=== PATIENT | male | born 1945 | race Caucasian/White ===

== ENCOUNTER 2018-07-24 02:26 | Outpatient (CLI) | payer MEDICARE, BC, SELFPAY ==
[2018-07-24 11:33] LABS: Anion Gap 9.4 mmol/L (3-11); BUN 21 mg/dL (7-18); CO2 28.6 mmol/L (21.0-32.0); CREATININE 1.06 mg/dL (0.70-1.30); Calcium 8.7 mg/dL (8.5-10.1); Chloride 105 mmol/L (98-107); Cholesterol 153 mg/dL (50-200); Glucose 128 mg/dL (70-100); HDL Cholesterol 38 mg/dL (40-60); LDL CHOLESTEROL 80 mg/dL (<100); Potassium 4.1 mmol/L (3.5-5.1); Sodium 143 mmol/L (136-145); Triglyceride 164 mg/dL (30-150)
== END 2018-07-24 02:46 ==
PROVIDERS: PCP Emergency Medicine; Visit Provider Emergency Medicine
DX: I10 Essential (primary) hypertension (principal); E78.5 Hyperlipidemia, unspecified
CPT/HCPCS: 36415; 80048; 80061; 83721

== ENCOUNTER 2019-07-27 07:00 | Outpatient (CLI) | payer MEDICARE, BC, SELFPAY ==
[2019-07-27 10:44] LABS: Anion Gap 9.5 mmol/L (3-11); BUN 22 mg/dL (7-18); CO2 28.5 mmol/L (21.0-32.0); CREATININE 1.02 mg/dL (0.70-1.30); Calcium 8.7 mg/dL (8.5-10.1); Calculated LDL 93 mg/dL; Chloride 110 mmol/L (98-107); Cholesterol 158 mg/dL (<200); Glucose 109 mg/dL (74-106); HDL Cholesterol 42 mg/dL (40-60); Potassium 4.4 mmol/L (3.5-5.1); Sodium 148 mmol/L (136-145); Triglyceride 119 mg/dL (<150)
== END 2019-07-27 07:20 ==
PROVIDERS: PCP Emergency Medicine; Visit Provider Emergency Medicine
DX: I10 Essential (primary) hypertension (principal); I21.9 Acute myocardial infarction, unspecified
CPT/HCPCS: 36415; 80048; 80061

== ENCOUNTER → 2020-02-02 09:17 | Outpatient (BNVA) | payer MEDICARE, BC, SELFPAY | PROVIDERS: PCP Emergency Medicine; Referring Provider Emergency Medicine; Visit Provider Surgery | DX: K64.4 Residual hemorrhoidal skin tags (principal); K57.90 Diverticulosis of intestine, part unspecified, without perforation or abscess without bleeding; Z80.0 Family history of malignant neoplasm of digestive organs | CPT/HCPCS: 99202 ==

== ENCOUNTER 2020-02-10 10:14 | Day surgery (SDC) | payer MEDICARE, BC, SELFPAY ==
--- NOTE | 2020-02-10 08:48 | PDOC.DSDIS_ITS ---
Discharge Plan Disposition Patient Disposition: HOME Condition: Good Discharge Details Reason For Visit: colon scope Attending Provider: Felicia Enciso Primary Care Provider: Rasheed Chand Home Meds and New Rx's Prescriptions: Continued lorazepam 1 mg tablet 2 mg PO BID PRN (Reason: anxiety) Qty: 20 RF: 0 magnesium oxide 400 mg (241.3 mg magnesium) tablet 400 mg PO DAILY RF: 0 aspirin [Aspir-81] 81 MG tablet,delayed release (DR/EC) 81 mg PO DAILY RF: 0 scopolamine base 1 mg over 3 days patch 3 day 1 patch TD Q3D PRN (Reason: nausea and vomiting) Qty: 4 RF: 0 metoprolol succinate 25 mg tablet extended release 24 hr 25 mg PO DAILY Qty: 90 RF: 3 atorvastatin 40 mg tablet 40 mg PO DAILY Qty: 90 RF: 4 potassium citrate 10 mEq (1,080 mg) tablet extended release 10 meq PO DAILY Qty: 90 RF: 3 sotalol [Betapace] 160 mg tablet 160 mg PO BID Qty: 180 RF: 3 Discontinued bisacodyl [Dulcolax (bisacodyl)] 5 mg tablet,delayed release (DR/EC) 5 mg PO ONCE Qty: 4 RF: 0 polyethylene glycol 3350 17 gram/dose powder 17 g PO ONCE Qty: 238 RF: 0 Discharge Instructions Additional Instructions: Findings:small polyp divertiuclar Dx DIVERTICULAR DISEASE OVERVIEW ? A diverticulum is a pouch-like structure that ca n form through points of weakness in the muscular wall of the colon (ie, at points where blood vessels pass through the wall). Diverticulosis affects men and women equally. The risk of diverticular disease increases with age. It occurs throughout the world but is seen more commonly in developed countries. WHAT IS DIVERTICULAR DISEASE? Diverticulosis ? Diverticulosis merely describes the presence of diverticula. Diverticulosis is often found during a test done for other reasons, such as flexible sigmoidoscopy, colonoscopy, or barium enema. Most people with diverticulosis have no symptoms and will remain symptom free for the rest of their lives. A person with diverticulosis may have diverticulitis, or diverticular bleeding. Diverticulitis ? Inflammation of a diverticulum (diverticulitis) occurs when there is thinning and breakdown of the diverticular wall. This may be caused by increased pressure within the colon or by hardened particles of stool, which can become lodged within the diverticulum. The symptoms of diverticulitis depend upon the degree of inflammation present. The most common symptom is pain in the left lower abdomen. Other symptoms can include nausea and vomiting, constipation, diarrhea, and urinary symptoms such as pain or burning when urinating or the frequent need to urinate. Diverticulitis is divided into simple and complicated forms. ?Simple diverticulitis, which accounts for 75 percent of cases, is not associated with complications and typically responds to medical treatment without surgery. ?Complicated diverticulitis occurs in 25 percent of cases and usually requires surgery. Complications associated with diverticulitis can include the following: ?Abscess ? a localized collection of pus ?Fistula ? an abnormal tract between two areas that are not normally connected (eg, bowel and bladder) ?Obstruction ? a blockage of the colon ?Peritonitis ? infection involving the space around the abdominal organ ?Sepsis ? overwhelming body-wide infection that can lead to failure of multiple organs Diverticular bleeding ? Diverticular bleeding occurs when a small artery located within a diverticulum is eroded and bleeds into the colon. Diverticular bleeding usually causes painless bleeding from the rectum. In approximately 50 percent of cases, the person will see maroon or bright red blood with bowel movements. Is bleeding with a bowel movement normal? ? It is not normal to see blood in a bowel movement; this can be a sign of several conditions, most of which are not serious (eg, hemorrhoids) but some of which are serious and require immediate treatment. Anyone who sees blood after a bowel movement should consult with their healthcare provider to determine if further testing or evaluation is needed. DIVERTICULOSIS AND DIVERTICULITIS DIAGNOSIS ? Diverticulosis is often found during tests performed for other reasons. ?Barium enema ? This is an x-ray study that uses barium in an enema to view the outline of the lower intestinal tract. This is an older test and has been largely replaced by computed tomography (CT) scan. ?Flexible sigmoidoscopy ? This is an examination of the inside of the sigmoid colon with a thin, flexible tube that contains a camera. ?Colonoscopy ? This is an examination of the inside of the entire colon. ?CT scan ? A CT scan is often used to diagnose diverticulitis and its complications. If diverticulitis (not just diverticulosis) is suspected, the above three tests should not be used because of the risk of perforation. TREATMENT Diverticulosis ? People with diverticulosis who do not have symptoms do not require treatment. However, most clinicians recommend increasing fiber in the diet, which can help to bulk the stools and possibly prevent the development of new diverticula, diverticulitis, or diverticular bleeding. Fiber is not proven to prevent these conditions in all patients but may help to control recurrent episodes in some. Increase fiber ? Fruits and vegetables are a good source of fiber. Fiber content of packaged foods can be calculated by reading the nutrition label. Seeds and nuts ? Patients with diverticular disease have historically been advised to avoid whole pieces of fiber (such as seeds, corn, and nuts) because of concern that these foods could cause an episode of diverticulitis. However, this belief is completely unproven. We do not suggest that patients with diverticulosis avoid seeds, corn, or nuts. Diverticulitis ? Treatment of diverticulitis depends upon how severe your symptoms are. Home treatment ? If you have mild symptoms of diverticulitis (mild abdominal pain, usually left lower abdomen), you can be treated at home with a clear liquid diet and oral antibiotics. However, if you develop one or more of the following signs or symptoms, you should seek immediate medical attention: ?Temperature >100.1?F (38?C) ?Worsening or severe abdominal pain ?An inability to tolerate fluids Hospital treatment ? If you have moderate to severe symptoms, you may be hospitalized for treatment. During this time, you are not allowed to eat or drink; antibiotics and fluids are given into a vein. If you develop an abscess of the colon, you may require drainage of the abscess (usually performed by placing a drainage tube across the abdominal wall) or by surgically opening the affected area. Surgery ? If you develop a generalized infection in the abdomen (peritonitis), you will usually require an emergency operation. A two-part operation may be necessary in some cases. ?The first operation involves removal of the diseased colon and creation of a colostomy. A colostomy is an opening between the colon and the skin, where a bag is attached to collect waste from the intestine. The lower end of the colon is temporarily sewed closed to allow it to heal. ?Approximately three to six months later, a second operation is performed to reconnect the two parts of the colon and close the opening in the skin. You are then able to empty your bowels through the rectum. Sometimes patients require up to a year to recover from the first operation, depending on how sick they were. In non-emergency situations, the diseased area of the colon can be removed and the two ends of the colon can be reconnected in one operation, without the need for a colostomy. Surgery versus medical therapy ? An operation to remove the diseased area of the colon may be necessary if you do not improve with medical therapy. After an episode of uncomplicated diverticulitis, elective surgery is generally not required as the risk of another attack or requiring emergency surgery is low. However, patients with persistent symptoms attributable to diverticulitis, a history of complicated diverticulitis, or a compromised immune system should be evaluated for possible surgery to prevent another attack. In such patients, another attack has been associated with a higher risk of complications or . Of course, the decision will also depend in part upon your other medical conditions and ability to undergo surgery. In many cases, an elective operation can be performed laparoscopically, using small incisions, rather than the typical vertical (up and down) abdominal incision. Laparoscopic surgery usually allows you to recover more quickly and shortens the hospital stay. After diverticulitis resolves ? After an episode of diverticulitis resolves, if you have not had a recent colonoscopy, the entire length of the colon should be evaluated to determine the extent of disease and to rule out the presence of abnormal lesions such as polyps or cancer. Recommended tests include colonoscopy, barium enema and sigmoidoscopy, or CT colonography. Diverticular bleeding ? Most cases of diverticular bleeding resolve on their own. However, some people will need further testing or treatment to stop bleeding, which may include a colonoscopy, angiography (a treatment that blocks off the bleeding artery), bleeding scan, or surgery. DIVERTICULAR DISEASE PROGNOSIS Diverticulosis ? Over time, diverticulosis may cause no problems or it may cause episodes of bleeding and/or diverticulitis. Approximately 15 to 25 percent of people with diverticulosis will develop diverticulitis, while 5 to 15 percent will develop diverticular bleeding. Diverticulitis ? Approximately 85 percent of people with uncomplicated diverticulitis will respond to medical treatment, while approximately 15 percent of patients will need an operation. After successful treatment for a first attack of diverticulitis, one-third of patients will remain asymptomatic, one- third will have episodic cramps without diverticulitis, and one-third will go on to have a second attack of diverticulitis. The prognosis tends to remain similar following a second attack of diverticulitis. Only 10 percent of people remain symptom-free after a second attack. Subsequent attacks tend to be of similar severity, not increasing in severity as previously believed. Taking a Fiber Supplement Dietary fiber is a plant-based nutrient that's necessary for the healthy functioning of your digestive system. In addition to helping your bowels stay regular, it's also useful for maintaining optimum cholesterol and blood sugar levels as well as a healthy weight. Although it's technically a carbohydrate, it's not the kind that can be broken down into digestible sugars by the body. Instead, fiber travels through your digestive system while bulking and softening your stool?making it easier to pass. It also helps absorb excess blood sugars and cholesterols. The [place] [employer] recommends 30 grams (g) of fiber a day for men, and 25g a day for women. Fiber is found in fruits, vegetables, legumes, and whole grains, and is an important part of the diet. But because many people find it difficult to eat the recommended quantity of 25 to 38 g per day, fiber supplementation can be extremely helpful to ease the symptoms of a variety of digestive discomforts like diarrhea and constipation. Today, many fiber supplements are found on the market containing one of three active ingredients: psyllium, methylcellulose, and polycarbophil Health Benefits If you have diarrhea, supplementing with fiber can bulk up the stool and reduce frequent urges to evacuate the bowel. If you have constipation, fiber supplements can soften your stool and speed up its movement through the colon. To understand how fiber helps relieve symptoms of both diarrhea and constipation, it's important to differentiate between soluble fiber and insoluble fiber. Soluble fiber forms a gel in your colon by absorbing water and retaining it in your stool, which makes bowel movements softer and easier to pass. Insoluble fiber bulks stool up, which also helps it move through your intestines more easily. Thus, fiber can also help you avoid hemorrhoids and anal fissures that can develop when straining to pass a bowel movement. Additionally, supplementing with fiber can be part of a treatment plan for conditions such as irritable bowel syndrome (IBS), various types of inflammatory bowel disease (IBD) like Crohn's disease and ulcerative colitis, as well as diverticulosis. Fiber increases satiety, or fullness, and is thus helpful for those looking to lose weight or maintain a healthy weight. Sufficient fiber intake has also been shown to decrease the risk of certain cancers, heart disease, and diabetes. There is also evidence that enough fiber, when combined with a diet rich in Vitamin A, has a protective effect against food allergies. Possible Side Effects The potential side effects of fiber supplementation include: ? Gas and gas pain ? Abdominal bloating ? Lowered blood sugar ? Diarrhea or constipation (if taken in excess) ? Weight loss ? Lessened effectiveness of medications and vitamins (if taken at the same time as fiber) Because of the way fiber supplements bulk up in the intestinal tract and absorb surrounding materials, they can interfere with the body's ability to assimilate medications, vitamins, and nutrients. For that reason, it's important to consume fiber supplements at least one hour after, or two hours before, taking medications and important vitamins. Dosage and Preparation Fiber supplements often come in the form of powders meant to be mixed with water or another liquid. They also are available in capsule form, or as additives to foods like crackers, cookies, cereals, and bars. Dosage will vary based on the product and your desired effects. If you are healthy, it's generally recommended to start with a low dose of fiber and build up until you've reached optimum total daily fiber intake?roughly 25g for women and 38g for men?which should also include your dietary sources of fiber What to Look For When shopping for fiber, look closely at the ingredients to discover which form of fiber is used in each commercial brand. Also, if you're avoiding added sugar, salt, flavorings, or dyes, check the label for these common additives. If you're just starting with a fiber supplement, use a low dose and drink plenty of water when you take the supplement and throughout the day. If you are not used to eating a high fiber diet/taking a supplement, start with about half of the recommended dose. Always remember to take fiber with 8oz of water. Continue at this dose for about 2-3 weeks, and then slowly increase up to the full dose daily. Fiber is a natural product- you can increase the dose to 2-4 times a day as needed to have a formed BM without straining. Increase the dose slowly until you reach either the desired total intake or a specific effect. Psyllium Psyllium is made from the seeds of a plant in the Plantago genus and contains about 70% soluble fiber and 30% insoluble fiber. It helps the stool absorb water and bulks it up, making it easier to pass. It also breaks down in the gut (a process called fermentation) and becomes a food source for the good bacteria that reside there. Psyllium is used for treating constipation, irritable bowel syndrome (IBS), and diverticulosis. In addition, psyllium may lower cholesterol levels and provide some protection from heart disease. On the downside, psyllium may cause intestinal gas and contains a small number of calories (roughly 20 calories per tablespoon). Psyllium is sold under the brand names Metamucil, Fiberall, Hydrocil, Konsyl, Perdiem, and Serutan. Methylcellulose Methylcellulose is a non-allergenic and non-fermentable fiber created from the cell rabago of plants. Instead of being absorbed by the intestinal tract, methylcellulose pulls in water to create a softer stool. Methylcellulose is often used to treat constipation, diverticulosis, IBS, and some causes of diarrhea. Because it does not ferment, it is less likely than psyllium to cause intestinal gas; however, methylcellulose does not feed healthy gut bacteria the way psyl lium does. It can be used medical terminologist but it should be noted that, because it can interfere with absorption, methylcellulose should be taken apart from any prescribed medications. Methylcellulose is sold under the brand name Citrucel. Polycarbophil Similar to methylcellulose, polycarbophil absorbs water in the intestinal tract and creates a bulkier and softer stool. Because it does not ferment and is not absorbed by the body, polycarbophil is less likely to cause bloating and can, therefore, be comfortably used medical terminologist. Polycarbophil may be used to treat constipation, IBS, and diverticulosis, but is not appropriate for people who have difficulty swallowing. Like methylcellulose, it should be taken about two hours apart from medications. Polycarbophil is sold under the brand names Fibercon, Fiber-Lax, Equalactin, and Mitrolan. Other Questions What are the best dietary sources of fiber? Whether or not you choose to supplement with fiber, it's still important to include a variety of high-fiber foods in your diet, such as: ? Fresh fruit (pears, apples, strawberries, bananas) ? Fresh vegetables (broccoli, Brussel sprouts, beets, and carrots) ? Legumes (lentils, split peas, kidney beans, chickpeas, black beans, luna beans) ? Whole Grains (quinoa, oats, brown rice, millet, barley) ? Other food sources of fiber (popcorn, sweet potatoes, and venu) What time of day is best? Different manufacturers may have varying recommendations on when and how frequently to take fiber supplements. You may want to divide your daily dose into two or three portions to reduce bloating and gas that could occur when taking a large dose all at once. To avoid malabsorption, it's important to take medications or vitamins either one hour before, or two hours after, taking fiber supplements. If using a powdered form of fiber, be sure to dissolve it well. No matter what kind of fiber supplement you are using, be sure to drink plenty of water, at least 8ox, unless you are on fluid restrictions. Follow up: We will send a letter with results of the polyp in 2 to 3 weeks. Depending on what the pathology shows, we may or may not repeat colonoscopy in 5 years time. Please call if you develop: fevers >101.5 Nausea or Vomiting Abdominal pain that is not transient DAY SURGERY UNIT POST COLONOSCOPY INSTRUCTIONS 1. Because there will be medication in your system for the next 24 hours, you may feel a little sleepy. Your coordination will be affected. Therefore: a. Do not drive or operate dangerous equipment for 24 hours. b. Do not drink alcohol beverages for 24 hours (not even beer). c. Plan to go home and rest for the day. 2. Generally there are no restrictions on your activity after a day or so has go ne by, but you may feel a bit fatigued for a few days. 3 After you arrive home you may have a light meal and return to a normal diet as you can tolerate it without feeling sick to your stomach. 4. After surgery, you may feel pain or discomfort. This should be only transient, but if it persists please contact your doctor. 5. If there are any questions regarding the findings of your procedure, please feel free to contact your doctor. 6. If you are unable to contact your doctor with a problem, contact the hospital at [phone]. 7. Continue all your regular medications unless directed otherwise. I understand the above instructions and have no questions. Signature of Patient or Responsible Adult Escort Date/Time Name of Responsible Adult Escort Signature of Nurse Date/Time Activity:: No lifting over 20 pounds or strenuous activity x24 hours. Diet:: Small light meals x24 hours Discharge Orders Discharge Orders: Discharge Order (Routine); Ordered 02/10/20 Ordered By: Felicia Enciso DS: Diagnosis Discharge Diagnosis (1) Diverticulosis: Status: Acute (2) External hemorrhoids with complication: Status: Acute
--- NOTE | 2020-02-10 08:48 | COLE_ITS ---
Date of service: 02/10/20 Time of Service: 08:49 Colonoscopy Report Date of procedure: 02/10/20 Post-op diagnosis procedure note: other (Minor diverticular disease. Adenomatous polyp at 20 cm.) Procedure: Colonoscopy and polypectomy?cold Surgeon: Felicia Enciso Anesthesia proc note operative: MAC Estimated blood loss (mL): 1 Pathology: other Complications: None Disposition: same day Prep: Miralax/Dulcolax Retraction Time: 12 minutes Procedure Description: After informed consent was obtained the patient was taken to the procedure room and placed in a left decubitous position. Monitors were a pplied and a time out was done. The patients name, date of , procedure, allergies to medications and metal in their body was reviewed. The patient was then sedated. Once sedated and comfortable a rectal exam was done. External exam: Grade 2 external hemorrhoids. internal exam revealed a normal sphincter tone and no palpable masses. The prostate not palpable. The scope was then introduced and retrofelexed. nointernal hemorrhoids were identified. The scope was then advanced to the cecum without difficulty. The TI and appendiceal orifice were identified. The prep was good. The scope was then slowly retracted over 12 minutes back into the rectum. Polyps were removed at 20 cm and removed with a cold biting forcep. He has moderate diverticular disease with small and large pockets. Confined to the sigmoid colon. No signs of bleeding or infection. Mucosa is pink and healthy. The scope was removed and the patient was woken up and taken back to Same day surgery in stable cond ition. The patient tolerated the procedure well and there were no immediate complications. Follow up: The patient does not require any further screening colonoscopies, unless they develop changes in bowel habits or other new gastrointestinal complaints.
[2020-02-10 10:53] VITALS: BP 111/72; PULSE 60; RESP 16; TEMP 36.3; O2SAT 96
[2020-02-10] MEDS: Lactated Ringers 1,000 ML 80 ML IV (11:07)
--- NOTE | 2020-02-10 11:56 | BOWEL_PTH ---
PATIENT: Francisco Atkinson LOC: [facility] U#:[id number] AGE/SX: 74/M ROOM: RE02/10/[address]: Felicia Enciso : 1945 BED: DIS: 02/10/2020 SPEC #: [id number] RECD: 02/10/20 12:27 STATUS: SUZY REQ #: [id number] LOTTIE: 02/10/20 11:[address]: Felicia Enciso DEPT: Surgical Specimen RECD BY: Tosha Cueto ENTERED: 02/10/20 12:27 SP TYPE: Bowel OTHR DR: Rasheed Chand DO Tissues: 1 - BIOPSY BOWEL Procedures: GROSS AND MICRO LEVEL 4 Comments: [id number]
[2020-02-10 12:40] VITALS: BP 100/63; PULSE 58; RESP 16; TEMP 36.2; O2SAT 93
== END 2020-02-10 13:37 | disposition home or self-care (01) ==
PROVIDERS: PCP Emergency Medicine; Visit Provider Surgery
PROC: 0DJD8ZZ Inspection of Lower Intestinal Tract, Via Natural or Artificial Opening Endoscopic (ICD-10-PCS; CPT 45378; principal; 2020-02-10 10:30)
DX: K57.30 Diverticulosis of large intestine without perforation or abscess without bleeding (principal); D12.6 Benign neoplasm of colon, unspecified; K64.1 Second degree hemorrhoids
CPT/HCPCS: 45380; 88305; J2001

== ENCOUNTER 2020-03-01 16:52 | Emergency (ER) | payer MEDICARE, BC, SELFPAY ==
[2020-03-01 16:56] VITALS: BP 142/81; PULSE 65; RESP 18; TEMP 36.5; O2SAT 94
[2020-03-01 17:17] LABS: Bilirubin Negative (Negative); Blood Large (Negative); Clarity Clear (Clear); Glucose Negative (Negative); Ketones Negative (Negative); Leukocyte Esterase Negative (Negative); Nitrite Negative (Negative); Specific Gravity 1.025 (1.005-1.025); Urobilinogen 0.2 EU/dL (Up TO 0.2); pH 5.5 (5-8)
[2020-03-01 17:24] LABS: Abs Immature Grans 0.04 10^3/uL (0.0-0.06); Absolute Basophil Count 0.03 10^3/uL (0.0-0.2); Absolute Eosinophil Count 0.14 10^3/uL (0.0-0.7); Absolute Lymphocyte Count 1.26 10^3/uL (1.2-3.4); Absolute Monocyte Count 0.94 10^3/uL (0.1-0.8); Absolute Neutrophil Count 6.47 10^3/uL (1.2-6.7); Basophils % 0.3; Eosinophils % 1.6; HCT 45.3 % (40.0-50.0); HGB 14.9 g/dL (13.5-17.5); Immature Grans % 0.5; Lymphocytes % 14.2; MCH 31.7 pg (27.0-33.0); MCHC 32.9 % (32.0-36.0); MCV 96.4 fL (80-95); MPV 11.8 fL (8.0-11.0); Monocytes % 10.6; Neutrophils % 72.8; Nucleated RBC 0 %; Platelet Count 152 10^3/uL (130-400); RDW 12.5 % (11.8-14.1); RDW-SD 44.6 fL; WBC 8.88 10^3/uL (4.4-10.8)
--- NOTE | 2020-03-01 17:24 | ED.GENADUL_ITS ---
Discharge Plan Disposition Patient Disposition: HOME Condition: Improving Discharge Details Chief Complaint: FlankPain Clinical Impression: Ureterolithiasis Primary Care Provider: Rasheed Chand ED Provider: Abigail Calzada Home Meds and New Rx's Prescriptions: New tamsulosin [Flomax] 0.4 mg capsule 0.4 mg PO DAILY 10 Days Qty: 10 RF: 0 Continued lorazepam 1 mg tablet 2 mg PO BID PRN (Reason: anxiety) Qty: 20 RF: 0 magnesium oxide 400 mg (241.3 mg magnesium) tablet 400 mg PO DAILY RF: 0 aspirin [Aspir-81] 81 MG tablet,delayed release (DR/EC) 81 mg PO DAILY RF: 0 scopolamine base 1 mg over 3 days patch 3 day 1 patch TD Q3D PRN (Reason: nausea and vomiting) Qty: 4 RF: 0 metoprolol succinate 25 mg tablet extended release 24 hr 25 mg PO DAILY Qty: 90 RF: 3 atorvastatin 40 mg tablet 40 mg PO DAILY Qty: 90 RF: 4 potassium citrate 10 mEq (1,080 mg) tablet extended release 10 meq PO DAILY Qty: 90 RF: 3 sotalol [Betapace] 160 mg tablet 160 mg PO BID Qty: 180 RF: 3 Discharge Instructions Instructions: Ureteral Stones (ED) Additional Instructions: Drink plenty of fluids and get plenty of rest. Alternate tylenol and motrin as needed and directed for pain. Take the Flomax daily. Take the oxycodone for pain not relieved with Tylenol or Motrin. Call Dr. Carranza's office tomorrow morning to schedule a follow-up appointment for reevaluation and for possible procedure to help with passage of stone if pain persists or worsens. Return immediately to the emergency department if you develop any worsening or new concerning symptoms. Referrals: Ari Carranza MD [ [facility] STAFF PHYSICIAN] - Discharge Data Discharge Date/Time-TO BE ENTERED AT DEPARTURE: 03/01/20 18:55 Discharge Physician: Abigail Calzada Medical Decision Making 1705 -- 74-year-old male with a history of kidney stones presents with left flank pain for the past 3 days. Patient appears comfortable and in no acute distress. No acute findings on exam. Will refer for labs and imaging to rule out kidney stone. Will place an IV, give fluids and Toradol and reassess. 1830 -- Labs and imaging reviewed. Renal function very minimally diminished compared to baseline. Large amount of blood in urine but no evidence of infection. Normal white blood cell count. CT notes a 6 mm obstructing stone with moderate hydronephrosis. Patient reassessed and he states he feels much better. Case discussed with Dr. Carranza who agrees with plan for discharge. A dose of Flomax was given here as well as prescription. In preparation for possible stent, a COVID swab was obtained here. Patient was placed on urology follow-up list. Dr. Carranza advised that he call him tomorrow for follow-up. Usual and customary return precautions given prior to discharge. Medical Records Medical records reviewed: Yes I reviewed the patient's medical records. Imaging Data Radiologic Study: Radiologist's impression: CT Abdomen And Pelvis Without Contrast Exam date and time: 03/01/2020 5:46 PM Age: 74 years old Clinical indication: Other: L flank pain, h/o kidney stone TECHNIQUE: Imaging protocol: Computed tomography of the abdomen and pelvis without contrast. Radiation optimization: All CT scans at this facility use at least one of these dose optimization techniques: automated exposure control; mA and/or kV adjustment per patient size (includes targeted exams where dose is matched to clinical indication); or iterative reconstruction. COMPARISON: CT RENAL COLIC WO CONTRAST 02/03/2014 3:59 PM FINDINGS: Lungs: Clear lung bases. Liver: Similar appearance of multiple presumed small hepatic cysts which are too small to fully characterize. Gallbladder and bile ducts: Unremarkable gallbladder. Pancreas: Unremarkable pancreas. Spleen: Granulomatous changes of the spleen. Adrenals: Unremarkable bilateral adrenal glands. Kidneys and ureters: Statistically benign renal lesions for which no follow up is indicated. Multiple nonobstructing bilateral renal calculi are present. Focal area of hypoattenuation within the left kidney is stable from 2013 and may represent a small hemorrhagic cyst. There is prominent stranding about the left kidney. Mild stranding about the right kidney may be physiologic. There is a 6 mm obstructing calculus within the left proximal ureter on image 67 series 2 with at least moderate hydronephrosis of the left kidney. The right ureter is unremarkable. No hydronephrosis of the right kidney. Stomach and bowel: Nonobstructed bowel. Diverticulosis without evidence diverticulitis. Appendix: Appendix is not definitively seen however there are no secondary signs of appendicitis. Intraperitoneal space: Unremarkable. Vasculature: Scattered vascular calcifications. Normal caliber aorta. Lymph nodes: No suspicious lympadenpathy. Bladder: Bladder is poorly distended and poorly evaluated. Reproductive: Prostatomegaly. Bones/joints: Scattered bony degenerative changes. No acute fracture or dislocation. Soft tissues: Fat containing left inguinal hernia without evidence of acute complication. Superficial soft tissues are unremarkable. IMPRESSION: 1. 6 mm obstructing calculus within the left proximal ureter with at least moderate hydronephrosis of the left kidney. 2. Multiple additional nonobstructing bilateral renal calculi are present. 3. Other findings as detailed. Lab Data Lab results reviewed: Yes I reviewed the patient's lab results. Labs: Laboratory Tests Range/Units 03/01/20 03/01/20 03/01/20 17:05 17:13 17:13 WBC (4.4-10.8) 10^3/uL 8.88 RBC (4.36-5.78) 10^6/uL 4.70 Hgb (13.5-17.5) g/dL 14.9 Hct (40.0-50.0) % 45.3 MCV (80-95) fL 96.4 H MCH (27.0-33.0) pg 31.7 MCHC (32.0-36.0) % 32.9 RDW (11.8-14.1) % 12.5 Plt Count (130-400) 10^3/uL 152 MPV (8.0-11.0) fL 11.8 H Immature Gran % 0.5 Neutrophils % 72.8 Lymphocytes % 14.2 Monocytes % 10.6 Eosinophils % 1.6 Basophils % 0.3 Absolute Neutrophils (1.2-6.7) 10^3/uL 6.47 Absolute Lymphocytes (1.2-3.4) 10^3/uL 1.26 Absolute Monocytes (0.1-0.8) 10^3/uL 0.94 H Absolute Eosinophils (0.0-0.7) 10^3/uL 0.14 Absolute Basophils (0.0-0.2) 10^3/uL 0.03 Sodium (136-145) mmol/L 139 Potassium (3.5-5.1) mmol/L 4.1 Chloride (98-107) mmol/L 103 Carbon Dioxide (21.0-32.0) mmol/L 26.9 Anion Gap (3-11) mmol/L 9.1 BUN (7-18) mg/dL 27 H Creatinine (0.70-1.30) mg/dL 1.36 H Estimated GFR/1.73 m2 (mL/min/1.73m2) 51.22 Glucose (74-106) mg/dL 109 H Calcium (8.5-10.1) mg/dL 8.9 Total Bilirubin (0.2-1.0) mg/dL 1.0 AST (15-37) U/L 25 ALT (16-63) U/L 36 Alkaline Phosphatase (46-116) U/L 113 Total Protein (6.4-8.2) g/dL 7.2 Albumin (3.4-5.0) g/dL 3.9 Urine Color (Yellow) Yellow Urine Clarity (Clear) Clear Urine pH (5-8) 5.5 Ur Specific Duncan (1.005-1.025) 1.025 Urine Protein (Negative) mg/dL Negative Urine Ketones (Negative) mg/dL Negative Urine Blood (Negative) Large H Urine Nitrite (Negative) Negative Urine Bilirubin (Negative) Negative Urine Urobilinogen (Up TO 0.2) EU/dL 0.2 Ur Leukocyte Esterase (Negative) Negative Urine RBC (0-2) HPF 20-50 H Urine WBC (0-5) HPF 0-2 Ur Epithelial Cells (Negative) HPF Negative Urine Crystals (Negative) HPF Negative Urine Bacteria (Negative) HPF Negative Urine Mucus (Negative) Negative Ur Culture Indicated? No Urine Glucose (Negative) mg/dL Negative HPI General Mode of arrival: ambulatory . Date/Time Provider Initiated Documentation: 03/01/20 17:00 . Limitations to Documentation: no limitations . Information obtained by: patient . HPI Narrative: Patient is a 74-year-old male with a history of kidney stones, ureteral stent placement and lithotripsy in the past presents with left flank pain for the past 3 days. Patient states this feels like his usual kidney stones. He states he came into the ER because he feels like the pain is not migrating and is staying in one location. He denies any fever, nausea, vomiting, urinary symptoms or abdominal pain. Related Data Home Medications Medication Instructions Recorded Confirmed aspirin [Aspir-81] 81 mg PO DAILY tab-cap 02/23/13 03/01/20 magnesium oxide 400 mg (241.3 mg 400 mg PO DAILY tab 04/06/18 03/01/20 magnesium) tablet lorazepam 1 mg tablet 2 mg PO BID PRN #20 tab 07/23/18 03/01/20 scopolamine base 1 mg over 3 days 1 patch TD Q3D PRN #4 each 10/23/18 03/01/20 transdermal patch metoprolol succinate 25 mg 25 mg PO DAILY #90 tab 08/10/19 03/01/20 tablet,extended release 24 hr atorvastatin 40 mg tablet 40 mg PO DAILY #90 tab 09/30/19 03/01/20 potassium citrate 10 mEq (1,080 10 meq PO DAILY #90 tab 11/29/19 03/01/20 mg) tablet,extended release sotalol 160 mg tablet 160 mg PO BID #180 tab 02/01/20 03/01/20 tamsulosin [Flomax] 0.4 mg PO DAILY 10 Days #10 cap 03/01/20 Previous Rx's Medication Instructions Recorded lorazepam 1 mg tablet 2 mg PO BID PRN #20 tab 07/23/18 scopolamine base 1 mg over 3 days 1 patch TD Q3D PRN #4 each 10/23/18 transdermal patch metoprolol succinate 25 mg 25 mg PO DAILY #90 tab 08/10/19 tablet,extended release 24 hr atorvastatin 40 mg tablet 40 mg PO DAILY #90 tab 09/30/19 potassium citrate 10 mEq (1,080 10 meq PO DAILY #90 tab 11/29/19 mg) tablet,extended release sotalol 160 mg tablet 160 mg PO BID #180 tab 02/01/20 tamsulosin [Flomax] 0.4 mg PO DAILY 10 Days #10 cap 03/01/20 Allergies Allergy/AdvReac Type Severity Reaction Status Date / Time No Known Allergies Allergy Verified 02/10/20 10:50 General Stated Complaint: FlankPain SEMAJ: 3 Review of Systems All systems reviewed & are unremarkable except as noted in HPI and below Constitutional Constitutional: Reports as per HPI, Denies chills and Denies fever(s) Eyes Eyes: Denies blurry vision ENT Ears, Nose, Mouth, and Throat: Denies dizziness, Denies sore throat and Denies throat swelling Cardiovascular Cardiovascular: Denies chest pain and Denies dyspnea Respiratory Respiratory: Denies cough and Denies dyspnea Gastrointestinal Gastrointestinal: Denies abdominal pain, Denies diarrhea and Denies vomiting Genitourinary Genitourinary: Denies hematuria, Denies dysuria and Reports flank pain (L flank pain) Musculoskeletal Musculoskeletal: Denies back pain and Denies numbness Integumentary/Breasts Skin/Breast: Denies lesions and Denies rash Neurologic Neurologic: Denies dizziness, Denies localized weakness and Denies numbness Allergic/Immunologic Allergic/Immunologic: Denies throat swelling [facility] Medical History (Updated 03/01/20 @ 18:39 by Abigail Calzada DO) External hemorrhoids with complication (Acute) Surgical History Appendectomy Colonoscopy - MAC 01/10/14 Coronary Artery Bypass [place] (CABG) (~11/1996) 1996 triple bypass. 2017 had three stents placed. 2 LA's 1996 & 1989 F/U with Dr. Barraza in [place] 07/15 LITHOTRIPSY Family History Mother , AGE 92 No problems noted. Father , AGE 72 No problems noted. Brother , AGE 72 No problems noted. Brother No problems noted. Son No problems noted. Daughter No problems noted. Social History (Updated 07/24/18 @ 14:46 by Sophia Perdomo) Smoking/Tobacco Use Status: Former Tobacco Use Quit Date: 07/28/95 Second Hand Exposure: Yes Alcohol Intake: current Alcohol Intake frequency: 0-2 drinks per day Alcohol type: hard liquor Drug use: Never Substance use type: does not use Household members: spouse Housing: house Pets and animals: No Do you think of yourself as: straight/heterosexual Current gender identity: male Duration: 15-30 minutes/day Frequency: 3-4 times per week Ruth/Yazdanism: Gnosticist Special ruth needs: No Do you feel safe at home: Yes Do you feel safe in your relationship?: Yes Exam Const General: cooperative, healthy appearing and no acute distress HENMT Head: normal to inspection Face and sinus: normal facial exam Eyes General: appearance normal, both eyes and all related structures EOM: EOM intact bilaterally Neck Neck: normal visual inspection and No submandibular swelling Lymphatic: no lymphadenopathy noted Chest Chest: normal inspection of the chest and no tenderness Resp Effort & Inspection: normal respiratory effort and able to speak in complete sentences Auscultation: clear to auscultation bilaterally Cardio Rate: regular rate Rhythm: regular rhythm GI Inspection: normal to inspection Palpation: soft, not firm, not rigid and nontender Auscultation: normal bowel sounds Male General Exam: Yes normal external exam Penis: normal penis Scrotum: scrotum normal Back/Spine/Pelvis Back: no CVA tenderness Thoracic/Lumbar Spine: thoracic and lumbar spine normal to inspection Skin General skin exam: no rashes or lesions noted Neuro General: patient alert, patient awake and patient oriented x3 Cognition: normal cognition Speech: speech normal Motor: muscle tone normal throughout Sensory Exam: no sensory deficits noted Extrem General: normal to inspection, full ROM, capillary refill normal, no calf tenderness bilaterally and no edema Psych Appearance: grossly normal Mental Status: mental status grossly normal Speech and Movement: speech and movement normal Affect: normal affect Course Vital Signs Vital signs: Vital Signs Temperature 97.7 F 03/01/20 16:56 Pulse 65 03/01/20 16:56 Respiratory Rate 18 03/01/20 16:56 Blood Pressure 142/81 H 03/01/20 16:56 Pulse Oximetry 94 L 03/01/20 16:56 Temperature 97.7 F 03/01/20 16:56 Temperature Source Skin 03/01/20 16:56 Pulse 65 03/01/20 16:56 Respiratory Rate 18 03/01/20 16:56 Respiratory Effort 03/01/20 17:15 Blood Pressure 142/81 H 03/01/20 16:56 Blood Pressure Position Sitting 03/01/20 16:56 Pulse Oximetry 94 L 03/01/20 16:56 Oxygen Delivery Method Room Air 03/01/20 16:56 Oxygen Flow Rate 0 03/01/20 16:56 Pain Level 4 03/01/20 16:56 Comment 03/01/20 16:56 Lab/Test Results Lab/Test Results: Laboratory Tests Range/Units 03/01/20 17:05 Urine Color (Yellow) Yellow Urine Clarity (Clear) Clear Urine pH (5-8) 5.5 Ur Specific Duncan (1.005-1.025) 1.025 Urine Protein (Negative) mg/dL Negative Urine Ketones (Negative) mg/dL Negative Urine Blood (Negative) Large H Urine Nitrite (Negative) Negative Urine Bilirubin (Negative) Negative Urine Urobilinogen (Up TO 0.2) EU/dL 0.2 Ur Leukocyte Esterase (Negative) Negative Urine Glucose (Negative) mg/dL Negative
[2020-03-01 17:34] LABS: Bacteria Negative HPF (Negative); C & S Indicated? No; Crystals Negative HPF (Negative); Epithelial Cells Negative HPF (Negative); Mucus Negative (Negative); RBC 20-50 HPF (0-2); WBC 0-2 HPF (0-5)
[2020-03-01] MEDS: Normal Saline 1,000 ML 1000 ML IV (17:35)
[2020-03-01] MEDS: Ketorolac 30 MG/ML VIAL IVP (17:36)
[2020-03-01] MEDS: Normal Saline Flush 10 ML SYR IVP (17:36)
--- NOTE | 2020-03-01 17:49 | DI.CT_ITS ---
EXAM: CT RENAL COLIC WO CLINICAL HISTORY: L flank pain, h/o kidney stone TECHNIQUE: COMPARISON: CT AORTIC ANEURYSM WO W CONTRAS from 11/12/2016 FINDINGS: CT examination of the abdomen and pelvis was performed without contrast administration. Images obtai evan through the lung bases. There are multiple small hepatic low-attenuation lesions which appear es sentially unchanged to prior CT of October 2016, these may represent small hemangiomas or cysts. Splee n is unremarkable in appearance. Pancreas appears normal. Gallbladder and bile ducts are CT normal. Abdominal aorta is of normal diameter. No abdominal or pelvic adenopathy. No significant abdomina l wall hernia. Appendix is not specifically visualized but there is no evidence of appendicitis or diverticulitis. Adrenals are unremarkable bilaterally. There are multiple nonobstructing bilateral renal calculi. There are bilateral low-attenuation renal lesions which are unchanged in appearance in comparison with prior CT and have appearance consistent with cysts, measuring about 4.5 cm in greatest diameter in left kidney and about 3.4 cm in diameter in the right kidney. There is left hydronephrosis and there is a proximal left ureteral irregularly shaped stone measuring about 6 millimeters in greatest diameter. No additional ureteral calculus identified on either side . Urinary bladder grossly unremarkable by noncontrast criteria. IMPRESSION: Multiple bilateral nonobstructing renal calculi. Left hydronephrosis secondary to obstructing 6 millimeter in diameter proximal left ureteral calculus .
[2020-03-01 17:50] LABS: ALT 36 U/L (16-63); AST 25 U/L (15-37); Albumin 3.9 g/dL (3.4-5.0); Alkaline Phosphatase 113 U/L (46-116); Anion Gap 9.1 mmol/L (3-11); BUN 27 mg/dL (7-18); CO2 26.9 mmol/L (21.0-32.0); CREATININE 1.36 mg/dL (0.70-1.30); Calcium 8.9 mg/dL (8.5-10.1); Chloride 103 mmol/L (98-107); Estimated GFR 51.22 (mL/min/1.73m2); Glucose 109 mg/dL (74-106); Potassium 4.1 mmol/L (3.5-5.1); Sodium 139 mmol/L (136-145); Total Protein 7.2 g/dL (6.4-8.2)
[2020-03-01 18:03] VITALS: BP 126/68; PULSE 62; RESP 20; TEMP 36.8; O2SAT 95
--- NOTE | 2020-03-01 18:12 | DI.VRAD_ITS ---
PROCEDURE INFORMATION: Exam: CT Abdomen And Pelvis Without Contrast Exam date and time: 03/01/2020 5:46 PM Age: 74 years old Clinical indication: Other: L flank pain, h/o kidney stone TECHNIQUE: Imaging protocol: Computed tomography of the abdomen and pelvis without contrast. Radiation optimization: All CT scans at this facility use at least one of these dose optimization techniques: automated exposure control; mA and/or kV adjustment per patient size (includes targeted exams where dose is matched to clinical indication); or iterative reconstruction. COMPARISON: CT RENAL COLIC WO CONTRAST 02/03/2014 3:59 PM FINDINGS: Lungs: Clear lung bases. Liver: Similar appearance of multiple presumed small hepatic cysts which are too small to fully characterize. Gallbladder and bile ducts: Unremarkable gallbladder. Pancreas: Unremarkable pancreas. Spleen: Granulomatous changes of the spleen. Adrenals: Unremarkable bilateral adrenal glands. Kidneys and ureters: Statistically benign renal lesions for which no follow up is indicated. Multiple nonobstructing bilateral renal calculi are present. Focal area of hypoattenuation within the left kidney is stable from 2013 and may represent a small hemorrhagic cyst. There is prominent stranding about the left kidney. Mild stranding about the right kidney may be physiologic. There is a 6 mm obstructing calculus within the left proximal ureter on image 67 series 2 with at least moderate hydronephrosis of the left kidney. The right ureter is unremarkable. No hydronephrosis of the right kidney. Stomach and bowel: Nonobstructed bowel. Diverticulosis without evidence diverticulitis. Appendix: Appendix is not definitively seen however there are no secondary signs of appendicitis. Intraperitoneal space: Unremarkable. Vasculature: Scattered vascular calcifications. Normal caliber aorta. Lymph nodes: No suspicious lympadenpathy. Bladder: Bladder is poorly distended and poorly evaluated. Reproductive: Prostatomegaly. Bones/joints: Scattered bony degenerative changes. No acute fracture or dislocation. Soft tissues: Fat containing left inguinal hernia without evidence of acute complication. Superficial soft tissues are unremarkable. IMPRESSION: 1. 6 mm obstructing calculus within the left proximal ureter with at least moderate hydronephrosis of the left kidney. 2. Multiple additional nonobstructing bilateral renal calculi are present. 3. Other findings as detailed. Dictated and Authenticated by: Isai Lopez MD. Ordering:SARAH Hayes MD
[2020-03-01] MEDS: Tamsulosin 0.4 MG CAPCR PO (18:37)
--- NOTE | 2020-03-01 18:40 | NUR.NOTE ---
Referral faxed to [facility].Nursing Note:
[2020-03-03 14:27] LABS: COVID-19 RT-PCR Result NEGATIVE (Negative)
--- NOTE | 2020-03-04 11:34 | NUR.NOTE ---
1135--called pt at home--negative Covid test result given.Nursing Note:
== END 2020-03-01 18:55 | disposition home or self-care (01) ==
PROVIDERS: Emergency Provider Physician Assistant; PCP Emergency Medicine
DX: N13.2 Hydronephrosis with renal and ureteral calculous obstruction (principal); Z87.442 Personal history of urinary calculi; Z03.818 Encounter for observation for suspected exposure to other biological agents ruled out
CPT/HCPCS: 36415; 80053; 96361; 96374; 99284; U0003; 74176; 81003; 81015; 85025; 99285; J1885

== ENCOUNTER → 2020-03-08 08:27 | Outpatient (BNVA) | payer MEDICARE, BC, SELFPAY | PROVIDERS: PCP Emergency Medicine; Referring Provider Emergency Medicine; Visit Provider Nurse Practitioner Gerontology | DX: N20.1 Calculus of ureter (principal); N13.30 Unspecified hydronephrosis | CPT/HCPCS: 99203; 99214 ==

== ENCOUNTER 2020-04-12 01:04 | Outpatient (CLI) | payer MEDICARE, BC, SELFPAY ==
--- NOTE | 2020-04-12 06:45 | DI.US_ITS ---
EXAM: US RENAL CLINICAL HISTORY: F/U LT HYDRONEPHROSIS,LT URETERAL CALCULUS,N20.1,N13,30 TECHNIQUE: Ultrasound performed using standard protocol. COMPARISON: US RENAL ULTRASOUND from 02/03/[address] RENAL COLIC WO from 03/01/2020 FINDINGS: Kidneys are normal in size and shape. There are bilateral renal cysts, the largest in the left kidne y measuring about 45 millimeters in diameter. There is an 8 millimeter in diameter midpole nonobstru cting left renal calculus. There is no evidence of hydronephrosis. Urinary bladder is essentially empty. IMPRESSION: Multiple renal cysts. Nonobstructing left renal calculus. No evidence of acute urinary tract obstruction. DATA REPOSITORY:
== END 2020-04-12 01:24 ==
PROVIDERS: PCP Emergency Medicine; Visit Provider Nurse Practitioner Gerontology
DX: N28.1 Cyst of kidney, acquired (principal); N20.0 Calculus of kidney; K80.50 Calculus of bile duct without cholangitis or cholecystitis without obstruction
CPT/HCPCS: 76770; 99213

== ENCOUNTER 2020-07-13 08:31 | Outpatient (CLI) | payer MEDICARE, BC, SELFPAY ==
[2020-07-14 14:49] LABS: COVID-19 RT-PCR UVMMC Result Negative (Negative)
== END 2020-07-13 08:51 ==
PROVIDERS: PCP Emergency Medicine; Visit Provider Emergency Medicine
DX: Z20.828 Contact with and (suspected) exposure to other viral communicable diseases (principal)
CPT/HCPCS: U0003

== ENCOUNTER 2020-12-19 16:14 | Outpatient (REF) | payer MEDICARE, BC, SELFPAY ==
[2020-12-19 18:10] LABS: HCT 40.8 % (40.0-50.0); MCHC 36.8 % (32.0-36.0); MCV 97.8 fL (80-95); MPV 12.3 fL (8.0-11.0); Platelet Count 126 10^3/uL (130-400); RBC 4.17 10^6/uL (4.36-5.78); RDW 16.3 % (11.8-14.1); RDW-SD 48.9 fL; WBC 5.48 10^3/uL (4.4-10.8)
[2020-12-19 18:34] LABS: ALT 33 U/L (16-63); AST 29 U/L (15-37); Albumin 4.2 g/dL (3.4-5.0); Alkaline Phosphatase 122 U/L (46-116); Anion Gap 7.5 mmol/L (3-11); BUN 28 mg/dL (7-18); Bilirubin, Total 0.9 mg/dL (0.2-1.0); C-Reactive Protein 0.08 mg/dL (0.0-0.3); CO2 29.5 mmol/L (21.0-32.0); CREATININE 1.3 mg/dL (0.70-1.30); Calcium 9.1 mg/dL (8.5-10.1); Chloride 107 mmol/L (98-107); Estimated GFR 53.82 (mL/min/1.73m2); Glucose 92 mg/dL (74-106); Potassium 4.3 mmol/L (3.5-5.1); Sodium 144 mmol/L (136-145); TSH 1.62 uIU/mL (0.36-3.74); Total Protein 7.3 g/dL (6.4-8.2)
== END 2020-12-19 16:15 | disposition home or self-care (01) ==
LOC: LBN 16:14
PROVIDERS: PCP Emergency Medicine; Visit Provider Emergency Medicine
DX: R53.83 Other fatigue (principal); E03.9 Hypothyroidism, unspecified; C44.02 Squamous cell carcinoma of skin of lip
CPT/HCPCS: 80053; 85027; 84443; 86140

== ENCOUNTER 2020-12-27 03:20 | Outpatient (CLI) | payer MEDICARE, BC, SELFPAY ==
[2020-12-27 09:24] LABS: Abs Immature Grans 0.02 10^3/uL (0.0-0.06); Absolute Basophil Count 0.03 10^3/uL (0.0-0.2); Absolute Lymphocyte Count 1.17 10^3/uL (1.2-3.4); Absolute Monocyte Count 0.62 10^3/uL (0.1-0.8); Absolute Neutrophil Count 2.93 10^3/uL (1.2-6.7); Basophils % 0.6; Eosinophils % 2.1; HCT 42.2 % (40.0-50.0); HGB 13.9 g/dL (13.5-17.5); Immature Grans % 0.4; MCH 31.7 pg (27.0-33.0); MCHC 32.9 % (32.0-36.0); MCV 96.1 fL (80-95); MPV 12.1 fL (8.0-11.0); Monocytes % 12.7; Neutrophils % 60.2; Nucleated RBC 0 %; Platelet Count 155 10^3/uL (130-400); RBC 4.39 10^6/uL (4.36-5.78); RDW 13.2 % (11.8-14.1); WBC 4.87 10^3/uL (4.4-10.8)
[2020-12-27 10:40] LABS: Folate 15.2 ng/mL (8.6-20.0); GGT 23 U/L (15-85); Vitamin B12 284 pg/mL (193-986)
[2020-12-27 10:50] LABS: C-Reactive Protein < 0.05 mg/dL (0.0-0.3); LDH 205 U/L (85-227)
[2020-12-29 11:54] LABS: Methylmalonic Acid 0.21 nmol/mL (<=0.40)
== END 2020-12-27 03:21 | disposition home or self-care (01) ==
LOC: LBO 03:20
PROVIDERS: PCP Emergency Medicine; Visit Provider Emergency Medicine
DX: D75.89 Other specified diseases of blood and blood-forming organs (principal); E03.9 Hypothyroidism, unspecified; R53.83 Other fatigue; R07.9 Chest pain, unspecified; C44.02 Squamous cell carcinoma of skin of lip; Z79.899 Other long term (current) drug therapy
CPT/HCPCS: 36415; 80186; 82607; 82746; 82977; 83615; 85025; 86140

== ENCOUNTER 2021-04-17 00:30 | Outpatient (CLI) | payer MEDICARE, BC, SELFPAY ==
--- NOTE | 2021-04-17 10:32 | DI.RAD_ITS ---
Exam(s) XR ABDOMEN FLAT PLATE EXAM: 2D digital imaging was performed. CLINICAL HISTORY: H/O RENAL CALCULI,Z87.442,LT RENAL STONE,N20.0, MONITORING OF KNOWN STONE. COMPARISON: CR ABDOMEN FLAT PLATE from 02/03/2012 CR ABDOMEN FLAT PLATE from 02/03/[address] RENAL COLIC WO from 03/01/[address] RENAL COLIC WO from 03/01/2020 TECHNIQUE: Supine views of the abdomen performed. FINDINGS: BOWEL GAS PATTERN: There is a moderate amount of stool throughout the colon suggesting constipation. CALCIFICATIONS: There is a collection of punctate calcifications overlying the expected upper pole of the left kidney suspicious for stones. The right kidney is largely obscured by overlying bowel. OSSEOUS STRUCTURES: Normal for age. OTHER FINDINGS: Visualized lung bases are clear. Atherosclerosis. Multiple stable calcifications in the pelvis consistent with phleboliths. IMPRESSION: 1. Calcifications overlying the left renal shadow suspicious for nephrolithiasis. 2. Moderate amount of retained stool suggesting constipation. DATA REPOSITORY: RADIATION DOSE DELIVERED:
== END 2021-04-17 00:50 ==
PROVIDERS: PCP Emergency Medicine; Visit Provider Nurse Practitioner Gerontology
DX: N20.0 Calculus of kidney (principal); Z87.442 Personal history of urinary calculi
CPT/HCPCS: 74018

== ENCOUNTER → 2021-04-25 10:21 | Outpatient (BNVA) | payer MEDICARE, BC, SELFPAY | PROVIDERS: PCP Emergency Medicine; Referring Provider Emergency Medicine; Visit Provider Nurse Practitioner Gerontology | DX: N20.0 Calculus of kidney (principal); K59.00 Constipation, unspecified | CPT/HCPCS: 99213 ==

== ENCOUNTER 2022-01-03 12:09 | Outpatient (CLI) | payer MEDICARE, BC, SELFPAY ==
[2022-01-03 10:48] LABS: HCT 40.9 % (40.0-50.0); HGB 13.6 g/dL (13.5-17.5); MCH 32.2 pg (27.0-33.0); MCHC 33.3 % (32.0-36.0); MCV 97 fL (80-95); MPV 12.1 fL (8.0-11.0); Platelet Count 147 10^3/uL (130-400); RBC 4.23 10^6/uL (4.36-5.78); RDW 13.4 % (11.8-14.1); WBC 4.55 10^3/uL (4.4-10.8)
[2022-01-03 11:19] LABS: ALT 21 U/L (16-63); AST < 5 U/L (15-37); Albumin 3.5 g/dL (3.4-5.0); Alkaline Phosphatase 132 U/L (46-116); Anion Gap 7.3 mmol/L (3-11); BUN 23 mg/dL (7-18); Bilirubin, Total 0.6 mg/dL (0.2-1.0); CO2 26.7 mmol/L (21.0-32.0); CREATININE 1.1 mg/dL (0.70-1.30); Calcium 8.2 mg/dL (8.5-10.1); Calculated LDL 71 mg/dL (<100); Chloride 107 mmol/L (98-107); Cholesterol 135 mg/dL (<200); Glucose 124 mg/dL (74-106); HDL Cholesterol 43 mg/dL (40-60); Magnesium 1.9 mg/dL (1.8-2.4); Potassium 3.8 mmol/L (3.5-5.1); Sodium 141 mmol/L (136-145); TSH (W/Ref FT4) 2.49 uIU/mL (0.36-3.74); Total Protein 6.9 g/dL (6.4-8.2); Triglyceride 107 mg/dL (<150)
[2022-01-03 11:31] LABS: Uric Acid 4.8 mg/dL (3.5-7.2)
== END 2022-01-03 12:10 | disposition home or self-care (01) ==
LOC: LOS 12:14
PROVIDERS: PCP Nurse Practitioner Family; Visit Provider Family Medicine
DX: E78.5 Hyperlipidemia, unspecified (principal); I25.10 Atherosclerotic heart disease of native coronary artery without angina pectoris; M10.9 Gout, unspecified; R53.83 Other fatigue; R25.2 Cramp and spasm
CPT/HCPCS: 36415; 80053; 80061; 85027; 83735; 84443; 84550

== ENCOUNTER 2023-03-12 15:02 | Outpatient (CLI) | payer MEDICARE, BC, SELFPAY ==
--- NOTE | 2023-03-12 15:00 | RT.EKG_ITS ---
APPROVED REPORT Exam: Resting ECG Reason for Exam: Pain Patient Location: O HR:72 bpm ECG Measurements Heart Rate 72 AXIS KS 180 P 36 QRSd 106 QRS -21 QT 434 T 38 QTc 476 Conclusion Sinus rhythm...normal P axis, V-rate 50- 99 Borderline left axis deviation...QRS axis (-15,-29) Abnormal R-wave progression, early transition...QRS area>0 in V2
== END 2023-03-12 15:03 | disposition home or self-care (01) ==
LOC: DI.CM 15:03
PROVIDERS: PCP Nurse Practitioner Family; Visit Provider Physician Assistant
DX: R07.9 Chest pain, unspecified (principal)
CPT/HCPCS: 93010

== ENCOUNTER 2023-03-17 09:46 | Outpatient (CLI) | payer MEDICARE, BC, SELFPAY ==
[2023-03-17 12:21] LABS: Abs Immature Grans 0.05 10^3/uL (0.0-0.06); Absolute Basophil Count 0.04 10^3/uL (0.0-0.2); Absolute Eosinophil Count 0.27 10^3/uL (0.0-0.7); Absolute Lymphocyte Count 1.03 10^3/uL (1.2-3.4); Absolute Monocyte Count 1.06 10^3/uL (0.1-0.8); Absolute Neutrophil Count 5.27 10^3/uL (1.2-6.7); Basophils % 0.5; Eosinophils % 3.5; HCT 41.6 % (40.0-50.0); HGB 13.7 g/dL (13.5-17.5); Immature Grans % 0.6; Lymphocytes % 13.3; MCH 31.1 pg (27.0-33.0); MCHC 32.9 % (32.0-36.0); MCV 94 fL (80-95); MPV 11.1 fL (8.0-11.0); Monocytes % 13.7; Neutrophils % 68.4; Platelet Count 198 10^3/uL (130-400); RBC 4.41 10^6/uL (4.36-5.78); RDW 13.3 % (11.8-14.1); RDW-SD 46.8 fL; WBC 7.72 10^3/uL (4.4-10.8)
[2023-03-17 12:27] LABS: ALT 22 U/L (16-63); AST 21 U/L (15-37); Albumin 3.4 g/dL (3.4-5.0); Alkaline Phosphatase 118 U/L (46-116); Anion Gap 5.6 mmol/L (3-11); BUN 27 mg/dL (7-18); Bilirubin, Total 0.9 mg/dL (0.2-1.0); CO2 31.4 mmol/L (21.0-32.0); CREATININE 1.1 mg/dL (0.70-1.30); Calcium 8.8 mg/dL (8.5-10.1); Chloride 101 mmol/L (98-107); Estimated GFR 69.14 (mL/min/1.73m2); Glucose 109 mg/dL (74-106); Potassium 4.4 mmol/L (3.5-5.1); Sodium 138 mmol/L (136-145); Total Protein 7.3 g/dL (6.4-8.2)
== END 2023-03-17 09:47 | disposition home or self-care (01) ==
LOC: LOS 09:46
PROVIDERS: PCP Nurse Practitioner Family; Referring Provider Nurse Practitioner Family; Visit Provider Nurse Practitioner Family
DX: R22.32 Localized swelling, mass and lump, left upper limb; R53.83 Other fatigue; M79.89 Other specified soft tissue disorders
CPT/HCPCS: 36415; 80053; 85025

== ENCOUNTER → 2023-03-18 03:07 | Outpatient (CLI) | payer MEDICARE, BC, SELFPAY ==
--- NOTE | 2023-03-18 07:30 | DI.US_ITS ---
Exam(s) US UPPER EXTREMITY VENOUS LT EXAM: US UPPER EXTREMITY VENOUS LT CLINICAL HISTORY: ? DVT., edema lt upper arm, r60.0 TECHNIQUE: GRAYSCALE, COLOR, DOPPLER IMAGING OF THE VENOUS SYSTEM OF THE UPPER EXTREMITY-LEFT COMPARISON: None FINDINGS: This is a positive-abnormal study. There is intraluminal thrombus resulting in poor compressibility throughout the length of the base il iac, left axillary, and left subclavian vein. Some intraluminal thrombus also seen in the ipsilatera l internal jugular vein. There is also intraluminal thrombus evident within the ipsilateral cephalic vein. Enlarged lymph nodes are noted in the supraclavicular region, largest measuring 2.7 x 2.1 x 1.0 cm. 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 Significant risk for pulmonary embolus. Wet read. DATA REPOSITORY:
== END ==
PROVIDERS: PCP Nurse Practitioner Family; Visit Provider Nurse Practitioner Family
DX: R60.0 Localized edema (principal)
CPT/HCPCS: 36415; 71275; 80053; 93005; 99285; 83880; 84484; 85025; 85610; 85730; 93971; 99284; J3490

== ENCOUNTER 2023-03-18 11:36 | Emergency (ER) | payer MEDICARE, BC, SELFPAY ==
[2023-03-18] VITALS (15 sets, daily range): BP systolic 117–135; BP diastolic 70–82; PULSE 64–70; RESP 18; TEMP 36.8; O2SAT 93–96
--- NOTE | 2023-03-18 12:15 | DI.CT_ITS ---
Exam(s) CT CHEST PE CTA EXAM: CT CHEST PE CTA CLINICAL HISTORY: LUE DVT, assessing for thoracic abnormality. TECHNIQUE: Imaging Protocol: CT angiography of the chest was performed using pulmonary embolus stephanie col. Multi planar reconstructions were performed. CONTRAST MATERIAL: Intravenous: Omnipaque 350 Contrast volume: 100 cc COMPARISON: CT CT RENAL COLIC WO from 03/01/2020 FINDINGS: CHEST: PULMONARY ARTERIES: There is subtle intraluminal filling defects in right lower lobe vessels consiste nt with acute pulmonary emboli. Also in the right upper lobe. No intraluminal filling defects in th e left lung. LUNGS: There are no infiltrates nor evidence of pulmonary infarction.. There are no pleural effusions . MEDIASTINUM: There is no hilar nor mediastinal adenopathy. Visualized thyroid unremarkable. CARDIAC: Heart size is upper normal. There is no pericardial effusion.Caliber of the thoracic aorta is within normal limits. No dissection. There is sternotomy wires coronary artery calcification. Th ere is no prominent shift of the interventricular septum. PARTIALLY VISUALIZED UPPERMOST ABDOMEN: Multiple hypodensities in the liver which are difficult to as sess on this type of study. Can be further assessed with ultrasound to determine if they are cysts o r more concerning pathology OSSEOUS: No significant osseous lesions.. IMPRESSION: 1. There intraluminal filling defects in right lower lobe pulmonary arteries consistent with acute pu lmonary emboli.. Also some bulb into the right upper lobe vessels. No evidence of pulmonary infarct ion. No confluent infiltrates nor pleural effusions evident. 2. No evidence of aortic dissection nor pericardial effusion. Previous sternotomy. 3. Please note this patient had ultrasound examination of upper extremity earlier today which reveale d significant long length intraluminal thrombosis in the left upper extremity Report called by myself to ER physician. RADIATION DOSE DELIVERED: 676.86mGy.cm Total DLP DATA REPOSITORY: All CT scans at this facility are submitted to the National Radiology Data Registry (NRDR) Dose Index Registry (DIR) with the [employer] [place] [employer] (A[employer]). RADIATION OPTIMIZATION: All CT scans at this facility use at least one of these dose optimization te chniques: automated exposure control; mA and/or kV adjustment per patient size (includes targeted exa ms where dose is matched to clinical indication); or iterative reconstruction.
--- NOTE | 2023-03-18 12:15 | RT.EKG_ITS ---
APPROVED REPORT Exam: Resting ECG Reason for Exam: LUE DVT Patient Location: E HR:65 bpm ECG Measurements Heart Rate 65 AXIS [place] 171 P 30 QRSd 106 QRS -21 QT 470 T 39 QTc 489 Conclusion Sinus rhythm...normal P axis, V-rate 60- 99 sinus rhythm, left axis, normal intervals, non ischemic
--- NOTE | 2023-03-18 12:32 | ED.GENADUL_ITS ---
Discharge Plan Disposition Patient Disposition: Home Discharge Details Clinical Impression: Acute deep vein thrombosis of upper extremity, Pulmonary emboli Primary Care Provider: Aakash Turner ED Provider: Dago France Home Meds and New Rx's Prescriptions: New Rudy DVT-PE Treat 30D Start 5 mg (74 tabs) tablets,dose pack See Rx Instructions .ROUTE .COMPLEX Qty: 74 0RF Rx Instructions: orally per package directions No Action potassium citrate 10 mEq (1,080 mg) tablet extended release 10 meq PO DAILY Qty: 90 3RF atorvastatin 40 mg tablet 40 mg PO DAILY Qty: 90 12RF Shingrix (PF) 50 mcg/0.5 mL suspension for reconstitution 0.5 ml IM ONCE Qty: 1 0RF Rx Instructions: as a single dose aspirin [Aspir-81] 81 MG tablet,delayed release (DR/EC) 81 mg PO DAILY lorazepam 1 mg tablet 1 mg PO BID PRN (Reason: anxiety) Qty: 10 0RF metoprolol succinate 25 mg tablet extended release 24 hr 25 mg PO DAILY Qty: 90 3RF isosorbide mononitrate 60 mg tablet extended release 24 hr 60 mg PO DAILY Qty: 90 3RF amlodipine 5 mg tablet 5 mg PO DAILY Qty: 90 3RF cholecalciferol (vitamin D3) 25 mcg (1,000 unit) capsule 25 mcg PO DAILY Qty: 90 3RF omeprazole 40 mg capsule,delayed release(DR/EC) 40 mg PO DAILY Qty: 90 3RF sotalol [Betapace] 160 mg tablet 160 mg PO BID Qty: 180 3RF Discharge Instructions Instructions: Pulmonary Embolism (ED), Deep Vein Thrombosis (ED) Additional Instructions: Please follow-up closely with your primary care physician. Please return to the emergency department for any worsening symptoms Medical Decision Making 77-year-old male presents referred in for evaluation of extensive left upper extremity DVT involving left basilic axillary and subclavian vein as well as portion of the ipsilateral internal jugular, no history of thromboembolic disease, chart review does show history of squamous cell carcinoma and tubular adenoma otherwise no other thromboembolic risk factors, patient is alert oriented no chest pain or shortness of breath, consider component of thoracic outlet syndrome versus lymphadenopathy versus malignancy will obtain CT chest to assess for PE as well as thoracic anatomic abnormality 17: 18 discussed case with vascular surgery at [facility] given extensive left upper extremity DVT and evidence of PE on CT, given patient's age clinical history of presentation vital signs at this time he is deemed not a candidate for thrombectomy or thrombolysis; patient to be started on anticoagulation and follow-up closely with his primary care physician. Given strict return precautions for worsening symptoms. HPI General Date/Time Provider Initiated Documentation: 03/18/23 12:24 . HPI Narrative: 77-year-old male presents referred in for evaluation of left upper extremity DVT found to have extensive upper extremity DVT involving basilic axillary and subclavian as well as portion of ipsilateral internal jugular vein, started to notice left arm discomfort and swelling approximately 1 week ago. No recent travel no hospitalization no injury no history of thromboembolic disease. Related Data Home Medications Medication Instructions Recorded Confirmed aspirin 81 mg tablet,delayed 81 mg PO DAILY 02/23/13 03/18/23 release (Aspir-) lorazepam 1 mg tablet 1 mg PO BID PRN anxiety #10 tabs 02/20/22 03/18/23 metoprolol succinate 25 mg 25 mg PO DAILY #90 tabs 07/31/22 03/18/23 tablet,extended release 24 hr amlodipine 5 mg tablet 5 mg PO DAILY #90 tabs 11/20/22 03/18/23 cholecalciferol (vitamin D3) 25 25 mcg PO DAILY #90 caps 11/20/22 03/18/23 mcg (1,000 unit) capsule isosorbide mononitrate 60 mg 60 mg PO DAILY #90 tabs 11/20/22 03/18/23 tablet,extended release 24 hr omeprazole 40 mg capsule,delayed 40 mg PO DAILY #90 caps 11/20/22 03/18/23 release sotalol 160 mg tablet (Betapace) 160 mg PO BID #180 tabs 11/20/22 03/18/23 atorvastatin 40 mg tablet 40 mg PO DAILY #90 tabs 01/03/23 03/18/23 potassium citrate 10 mEq (1,080 10 meq PO DAILY #90 tabs 01/03/23 03/18/23 mg) tablet,extended release varicella-zoster glycoE [id number] 0.5 ml IM ONCE #1 ea 01/03/23 03/18/23 adj(PF) 50 mcg/0.5 mL IM susp, kit (Shingrix (PF)) apixaban 5 mg (74 tabs) tablets in See Rx Instructions PO .COMPLEX 03/18/23 a dose pack (Eliquis DVT-PE Treat #74 dose pk 30D Start) Previous Rx's Medication Instructions Recorded lorazepam 1 mg tablet 1 mg PO BID PRN anxiety #10 tabs 02/20/22 metoprolol succinate 25 mg 25 mg PO DAILY #90 tabs 07/31/22 tablet,extended release 24 hr amlodipine 5 mg tablet 5 mg PO DAILY #90 tabs 11/20/22 cholecalciferol (vitamin D3) 25 25 mcg PO DAILY #90 caps 11/20/22 mcg (1,000 unit) capsule isosorbide mononitrate 60 mg 60 mg PO DAILY #90 tabs 11/20/22 tablet,extended release 24 hr omeprazole 40 mg capsule,delayed 40 mg PO DAILY #90 caps 11/20/22 release sotalol 160 mg tablet (Betapace) 160 mg PO BID #180 tabs 11/20/22 atorvastatin 40 mg tablet 40 mg PO DAILY #90 tabs 01/03/23 potassium citrate 10 mEq (1,080 10 meq PO DAILY #90 tabs 01/03/23 mg) tablet,extended release varicella-zoster glycoE [id number] 0.5 ml IM ONCE #1 ea 01/03/23 adj(PF) 50 mcg/0.5 mL IM susp, kit (Shingrix (PF)) apixaban 5 mg (74 tabs) tablets in See Rx Instructions PO .COMPLEX 03/18/23 a dose pack (Eliquis DVT-PE Treat #74 dose pk 30D Start) Allergies Allergy/AdvReac Type Severity Reaction Status Date / Time No Known Allergies Allergy Verified 03/17/23 09:16 General Stated Complaint: Vascular SEMAJ: 3 Review of Systems Narrative: Review of Systems Constitutional: negative Eyes: negative ENT: negative Cardiovascular: negative Respiratory: negative Gastrointestinal: negative : negative Musculoskeletal: Arm swelling, arm Skin: negative Neurologic: negative Psych: negative PFSH All Active Problems (Updated 03/18/23 @ 17:20 by Dago France MD) Acute deep vein thrombosis of upper extremity (Acute) Pulmonary emboli (Chronic) Hyperglycemia (Acute) [id number] BPH associated with nocturia (Acute) Actinic keratosis (Acute) Gastroesophageal reflux disease without esophagitis (Acute) Dysphonia (Acute) Tubular adenoma (Acute) , ? 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 2017 had three stents placed. 2 VA's 1996 & 1989 F/U with Dr. Barraza in [place] 07/15 History of coronary artery bypass surgery History of lithotripsy LITHOTRIPSY Status post appendectomy Family History Mother , AGE 92 No problems noted. Father , AGE 72 No problems noted. Brother , AGE 72 No problems noted. Brother No problems noted. Son No problems noted. Daughter No problems noted. Social History Smoking/Tobacco Use Status: Former Tobacco Use tobacco type: cigarettes Quit Date: 07/28/95 Tobacco: How many years used: 20 Second Hand Exposure: Yes Smoking risk assessment performed?: Yes Alcohol Intake: current Alcohol Intake frequency: a few times a week Alcohol type: hard liquor Drug use: Never Substance use type: does not use Caregiver/Support person: No Household members: spouse Housing: house Communication Needs: Hard of Hearing Do you need help understanding health information?: Rarely Pets and animals: No Sexually active: No Do you think of yourself as: straight/heterosexual Current gender identity: male What is your relationship status?: How often do you talk on the phone with friends or family?: three or more times per week How often do you get together with friends or relatives?: twice per week Do you belong to any clubs or organized social groups?: no Panel score (0-1 are the most socially isolated patients): 2 What type of physical activity do you participate in: walking and bicycling Duration: 30-45 minutes/day Frequency: 3-4 times per week Ruth/Latter-Day: Voodoo Special ruth needs: No Do you feel safe at home: Yes Do you feel safe in your relationship?: Yes Exam Narrative Exam Narrative: Physical Examination General: alert, awake, cooperative, resting comfortably, no acute distress HEENT: normocephalic, atraumatic; PERRL, EOM intact, conjunctiva normal; no nasal discharge; moist mucous membranes, oral and pharyngeal mucosa normal, tolerating secretions Neck: supple, trachea midline; full ROM Chest: normal to inspection Respiratory: normal respiratory effort, speaking in full sentences, clear to auscultation, no wheezing, rales or rhonchi Cardiac: regular rate, regular rhythm, S1S2 intact, no murmurs rubs or gallops GI: abdomen soft, non-tender, non-distended; no palpable mass or hepatosplenomegaly Skin: no lesions, rashes or trauma appreciated Neuro: AAOx3, normal speech, moving all extremities Extremities: Left upper extremity edema extending from hand and wrist up to shoulder, no discoloration, warm well perfused, strong radial pulse, range of motion intact Psych: Appropriate mood and affect Course Vital Signs Vital signs: Vital Signs Temperature 36.8 C 03/18/23 11:45 Pulse 70 03/18/23 11:45 Respiratory Rate 18 03/18/23 11:45 Blood Pressure 134/78 03/18/23 11:45 Pulse Oximetry 96 03/18/23 11:45 Temperature 36.8 C 03/18/23 11:45 Temperature Source Oral 03/18/23 11:45 Pulse 70 03/18/23 11:45 Respiratory Rate 18 03/18/23 11:45 Respiratory Effort Normal, Non-Labored 03/18/23 11:49 Blood Pressure 134/78 03/18/23 11:45 Blood Pressure Position Sitting 03/18/23 11:45 Pulse Oximetry 96 03/18/23 11:45 Oxygen Delivery Method Room Air 03/18/23 11:45 Oxygen Flow Rate 0 03/18/23 11:45 Pain Level 0 03/18/23 11:45
[2023-03-18 13:33] LABS: Abs Immature Grans 0.03 10^3/uL (0.0-0.06); Absolute Basophil Count 0.02 10^3/uL (0.0-0.2); Absolute Eosinophil Count 0.24 10^3/uL (0.0-0.7); Absolute Monocyte Count 0.81 10^3/uL (0.1-0.8); Absolute Neutrophil Count 4.53 10^3/uL (1.2-6.7); Basophils % 0.3; Eosinophils % 3.7; HCT 40.6 % (40.0-50.0); HGB 13.2 g/dL (13.5-17.5); Immature Grans % 0.5; Lymphocytes % 13.8; MCH 30.2 pg (27.0-33.0); MCHC 32.5 % (32.0-36.0); MCV 93 fL (80-95); MPV 10.5 fL (8.0-11.0); Monocytes % 12.4; Neutrophils % 69.3; Platelet Count 188 10^3/uL (130-400); RBC 4.37 10^6/uL (4.36-5.78); RDW-SD 45.1 fL; WBC 6.53 10^3/uL (4.4-10.8)
[2023-03-18 13:43] LABS: PTT Activated 27.2 sec (21.5-31.9); Prothrombin Time 10.4 sec (9.3-11.0)
[2023-03-18 13:53] LABS: ALT 20 U/L (16-63); AST 22 U/L (15-37); Albumin 3.3 g/dL (3.4-5.0); Alkaline Phosphatase 117 U/L (46-116); BUN 21 mg/dL (7-18); Bilirubin, Total 0.8 mg/dL (0.2-1.0); Calcium 8.9 mg/dL (8.5-10.1); Chloride 103 mmol/L (98-107); Estimated GFR 77.52 (mL/min/1.73m2); Glucose 99 mg/dL (74-106); Potassium 4.3 mmol/L (3.5-5.1); Sodium 139 mmol/L (136-145)
[2023-03-18 13:54] LABS: NT-proBNP 420 pg/mL (<300); Troponin I < 50 ng/L (<or=60)
[2023-03-18] MEDS: Omnipaque 350 MG/ML 100 ML BTL IJ (15:26)
[2023-03-18] MEDS: Normal Saline - Diluent 50 ML VIAL IJ (15:26)
[2023-03-18] MEDS: Apixaban 5 MG TAB 10 MG PO (17:25)
--- NOTE | 2023-03-19 13:22 | NUR.NOTE ---
Accessed chart to determine orders for EKG and to determine whether or not one needs to be cancelled. Nursing Note:
== END 2023-03-18 17:33 | disposition home or self-care (01) ==
PROVIDERS: Emergency Provider Emergency Medicine; PCP Nurse Practitioner Family
DX: I82.622 Acute embolism and thrombosis of deep veins of left upper extremity (principal); I26.99 Other pulmonary embolism without acute cor pulmonale
CPT/HCPCS: 36415; 71275; 80053; 93005; 99285; 83880; 84484; 85025; 85610; 85730; 93010; 99284; J3490

== ENCOUNTER 2023-04-25 10:35 | Outpatient (CLI) | payer MEDICARE, BC, SELFPAY ==
--- NOTE | 2023-04-25 10:30 | RT.EKG_ITS ---
APPROVED REPORT Exam: Resting ECG Reason for Exam: SHoulder pain Patient Location: O HR:60 bpm ECG Measurements Heart Rate [address] 167 P 7 QRSd 115 QRS 72 QT 475 T 34 QTc 475 Conclusion Sinus rhythm...normal P axis, V-rate 50- 99 Early transition
== END 2023-04-25 10:36 | disposition home or self-care (01) ==
LOC: DI.CM 10:35
PROVIDERS: PCP Nurse Practitioner Family; Visit Provider Nurse Practitioner Family
DX: R07.9 Chest pain, unspecified (principal)
CPT/HCPCS: 93010

== ENCOUNTER 2023-04-25 11:52 | Inpatient (IN) | payer MEDICARE, BC, SELFPAY ==
[2023-04-25] VITALS (19 sets, daily range): BP systolic 117–133; BP diastolic 67–77; PULSE 60–65; RESP 13–24; TEMP 36.3; O2SAT 94–97
--- NOTE | 2023-04-25 12:00 | RT.EKG_ITS ---
APPROVED REPORT Exam: Resting ECG Reason for Exam: sync/dizzy Patient Location: E HR:57 bpm ECG Measurements Heart Rate 57 AXIS [place] 169 P 44 QRSd 107 QRS -12 QT 497 T 17 QTc 485 Conclusion Sinus bradycardia...rate< 60 Sinus bradycardia. WD
[2023-04-25 12:42] LABS: Abs Immature Grans 0.04 10^3/uL (0.0-0.06); Absolute Basophil Count 0.02 10^3/uL (0.0-0.2); Absolute Eosinophil Count 0.12 10^3/uL (0.0-0.7); Absolute Lymphocyte Count 1.06 10^3/uL (1.2-3.4); Absolute Monocyte Count 0.64 10^3/uL (0.1-0.8); Absolute Neutrophil Count 3.94 10^3/uL (1.2-6.7); Basophils % 0.3; Eosinophils % 2.1; HGB 13.3 g/dL (13.5-17.5); Immature Grans % 0.7; Lymphocytes % 18.2; MCH 29.7 pg (27.0-33.0); MCHC 32.4 % (32.0-36.0); MCV 92 fL (80-95); MPV 10.6 fL (8.0-11.0); Neutrophils % 67.7; Platelet Count 190 10^3/uL (130-400); RBC 4.48 10^6/uL (4.36-5.78); RDW 13.6 % (11.8-14.1); RDW-SD 46.2 fL; WBC 5.82 10^3/uL (4.4-10.8)
--- NOTE | 2023-04-25 12:48 | W.ED.GENAD ---
Discharge Plan Discharge Details Chief Complaint: Dizzy/Sync Clinical Impression: Dizziness, Elevated troponin Primary Care Provider: Aakash Turner ED Provider: Mason Hennessy [place] Meds and New Rx's Prescriptions: No Action potassium citrate 10 mEq (1,080 mg) tablet extended release 10 meq PO DAILY Qty: 90 3RF atorvastatin 40 mg tablet 40 mg PO DAILY Qty: 90 12RF Shingrix (PF) 50 mcg/0.5 mL suspension for reconstitution 0.5 ml IM ONCE Qty: 1 0RF Rx Instructions: as a single dose lorazepam 1 mg tablet 1 mg PO DAILY PRN (Reason: anxiety) Qty: 10 0RF metoprolol succinate 25 mg tablet extended release 24 hr 25 mg PO DAILY Qty: 90 3RF isosorbide mononitrate 60 mg tablet extended release 24 hr 60 mg PO DAILY Qty: 90 3RF amlodipine 5 mg tablet 5 mg PO DAILY Qty: 90 3RF cholecalciferol (vitamin D3) 25 mcg (1,000 unit) capsule 25 mcg PO DAILY Qty: 90 3RF omeprazole 40 mg capsule,delayed release(DR/EC) 40 mg PO DAILY Qty: 90 3RF sotalol [Betapace] 160 mg tablet 160 mg PO BID Qty: 180 3RF apixaban 5 mg tablet 5 mg PO BID Qty: 180 3RF Medical Decision Making 77-year-old male presents for evaluation of dizzy episodes. Patient has had a total of 3 episodes that lasted about 5 minutes. He has diffuse weakness throughout his body with these episodes. At time of my evaluation he is neurologically intact. NIH stroke score is 0. EKG does not show any acute ischemic changes. Laboratory studies show an elevated troponin. Repeat troponin was ordered. CTA of head and neck were ordered as well as MRI of brain. Patient signed out to Dr. Hennessy with remainder of work-up and disposition pending. HPI General Date/Time Provider Initiated Documentation: 04/25/23 12:11. HPI Narrative: 77-year-old male presents for evaluation of dizziness episodes. Patient has had 3 episodes of dizziness since yesterday. He states that the initial episode occurred when he was standing outside. He started to feel funny and then attempted to walk inside. He made it inside but his arms and legs all of a sudden became weak. He sat himself down on the bench. His symptoms lasted for about 5 minutes. After which he regained his strength. He did not pass out. He did not hit his head. Denies any chest pain or shortness of breath. He had a second episode while laying in his chair watching television. He decided to get up during the episode and again felt weak. He did not fall or hit his head during that episode. This morning he went to urgent care for evaluation of these episodes and was referred to the emergency department. While standing waiting in the waiting room he had another episode. This again resolved on its own within a few minutes. Denies any blurry vision or double vision. No headache. No cough or cold. He does have known blood clot to his left arm. This was diagnosed several weeks ago via ultrasound. He has been on blood thinner since that time. He states that the swelling in the arm has improved significantly. He did have some intermittent pain in the arm over the last couple of days which had mostly gone away. He has a history of high cholesterol which is significantly improved with medication. Denies any history of high blood pressure. No history of stroke. He does not believe he is ever had in the past. He is a non-smoker. No history of diabetes. He does have a history of vertigo in the past and these symptoms are not similar. He did eat this morning without any difficulty. No nausea or vomiting. Related Data Home Medications Medication Instructions Recorded Confirmed metoprolol succinate 25 mg 25 mg PO DAILY #90 tabs 07/31/22 03/26/23 tablet,extended release 24 hr amlodipine 5 mg tablet 5 mg PO DAILY #90 tabs 11/20/22 03/26/23 cholecalciferol (vitamin D3) 25 25 mcg PO DAILY #90 caps 11/20/22 03/26/23 mcg (1,000 unit) capsule isosorbide mononitrate 60 mg 60 mg PO DAILY #90 tabs 11/20/22 03/26/23 tablet,extended release 24 hr omeprazole 40 mg capsule,delayed 40 mg PO DAILY #90 caps 11/20/22 03/26/23 release sotalol 160 mg tablet (Betapace) 160 mg PO BID #180 tabs 11/20/22 03/26/23 atorvastatin 40 mg tablet 40 mg PO DAILY #90 tabs 01/03/23 03/26/23 potassium citrate 10 mEq (1,080 10 meq PO DAILY #90 tabs 01/03/23 03/26/23 mg) tablet,extended release varicella-zoster glycoE [id number] 0.5 ml IM ONCE #1 ea 01/03/23 03/26/23 adj(PF) 50 mcg/0.5 mL IM susp, kit (Shingrix (PF)) lorazepam 1 mg tablet 1 mg PO DAILY PRN anxiety #10 tabs 03/26/23 03/26/23 apixaban 5 mg tablet 5 mg PO BID #180 tabs 04/04/23 Previous Rx's Medication Instructions Recorded metoprolol succinate 25 mg 25 mg PO DAILY #90 tabs 07/31/22 tablet,extended release 24 hr amlodipine 5 mg tablet 5 mg PO DAILY #90 tabs 11/20/22 cholecalciferol (vitamin D3) 25 25 mcg PO DAILY #90 caps 11/20/22 mcg (1,000 unit) capsule isosorbide mononitrate 60 mg 60 mg PO DAILY #90 tabs 11/20/22 tablet,extended release 24 hr omeprazole 40 mg capsule,delayed 40 mg PO DAILY #90 caps 11/20/22 release sotalol 160 mg tablet (Betapace) 160 mg PO BID #180 tabs 11/20/22 atorvastatin 40 mg tablet 40 mg PO DAILY #90 tabs 01/03/23 potassium citrate 10 mEq (1,080 10 meq PO DAILY #90 tabs 01/03/23 mg) tablet,extended release varicella-zoster glycoE [id number] 0.5 ml IM ONCE #1 ea 01/03/23 adj(PF) 50 mcg/0.5 mL IM susp, kit (Shingrix (PF)) lorazepam 1 mg tablet 1 mg PO DAILY PRN anxiety #10 tabs 03/26/23 apixaban 5 mg tablet 5 mg PO BID #180 tabs 04/04/23 Allergies Allergy/AdvReac Type Severity Reaction Status Date / Time No Known Allergies Allergy Verified 04/25/23 10:32 General Stated Complaint: Dizzy/Sync SEMAJ: 3 Review of Systems Narrative: Remainder of review of systems otherwise negative except for as in the HPI x10. PFSH All Active Problems (Updated 04/25/23 @ 16:13 by Antonieta Kc MD) Dizziness (Acute) Elevated troponin (Acute) COVID-19 (Acute) 04/14/23 Hyperglycemia (Acute) [id number] BPH associated with nocturia (Acute) Actinic keratosis (Acute) Gastroesophageal reflux disease without esophagitis (Acute) Dysphonia (Acute) Tubular adenoma (Acute) , ? 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 2017 had three stents placed. 2 UT's 1996 & 1989 F/U with Dr. Barraza in [place] 07/15 History of coronary artery bypass surgery History of lithotripsy LITHOTRIPSY Status post appendectomy Family History Mother , AGE 92 No problems noted. Father , AGE 72 No problems noted. Brother , AGE 72 No problems noted. Brother No problems noted. Son No problems noted. Daughter No problems noted. Social History Smoking/Tobacco Use Status: Former Tobacco Use tobacco type: cigarettes Quit Date: 07/28/95 Tobacco: How many years used: 20 Second Hand Exposure: Yes Smoking risk assessment performed?: Yes Alcohol Intake: current Alcohol Intake frequency: a few times a week Alcohol type: hard liquor Drug use: Never Substance use type: does not use Caregiver/Support person: No Household members: spouse Housing: house Communication Needs: Hard of Hearing Do you need help understanding health information?: Rarely Pets and animals: No Sexually active: No Do you think of yourself as: straight/heterosexual Current gender identity: male What is your relationship status?: How often do you talk on the phone with friends or family?: three or more times per week How often do you get together with friends or relatives?: twice per week Do you belong to any clubs or organized social groups?: no Panel score (0-1 are the most socially isolated patients): 2 What type of physical activity do you participate in: walking and bicycling Duration: 30-45 minutes/day Frequency: 3-4 times per week Ruth/Gnosticism: L[employer] Day Special ruth needs: No Do you feel safe at home: Yes Do you feel safe in your relationship?: Yes Exam Narrative Exam Narrative: General: non-toxic, no respiratory distress, comfortable HEENT: normocephalic, atraumatic, lids and lashes normal, PERRL, EOMI, anicteric sclera, no conjunctival injection, moist oral mucosa Neck: No vertebral tenderness, no meningeal signs Card: regular rate and rhythm, S1S2, no murmurs, rubs, or gallops Lungs: good air entry, clear to auscultation bilaterally. no wheezes, rales, rhonchi, or retractions Abd: soft, non-tender, non-distended, normal bowel sounds, no rebound or guarding, no peritoneal signs Musculoskeletal: full range of motion of arms and legs, no tenderness to palpation. no clubbing, cyanosis, or edema Neurologic: Neurologic exam: GSC 15, CN 2-12 intact bilaterally, speech normal, strength normal, sensation intact distally in all four extremities, gait normal, 2+ biceps tendon reflexes, normal finger to nose, normal rapid alternating movements, no pronator drift Psych: alert and oriented Skin: no petechiae, no lesions, warm and dry Course Vital Signs Vital signs: Vital Signs Temperature 36.3 C L 04/25/23 12:00 Pulse 60 04/25/23 12:00 Respiratory Rate 18 04/25/23 12:00 Blood Pressure 133/68 04/25/23 12:00 Pulse Oximetry 96 04/25/23 12:00 Temperature 36.3 C L 04/25/23 12:00 Pulse 60 04/25/23 12:00 Respiratory Rate 16 04/25/23 12:41 Respiratory Effort Normal, Non-Labored 04/25/23 12:41 Respiratory Depth Normal 04/25/23 12:41 Respiratory Pattern Normal 04/25/23 12:41 Blood Pressure 133/68 04/25/23 12:00 Blood Pressure Position Sitting 04/25/23 12:00 Pulse Oximetry 96 04/25/23 12:00 Oxygen Delivery Method Room Air 04/25/23 12:00 Oxygen Flow Rate 0 04/25/23 12:00 Lab/Test Results Lab/Test Results: Laboratory Tests Range/Units 04/25/23 12:38 WBC (4.4-10.8) 10^3/uL 5.82 RBC (4.36-5.78) 10^6/uL 4.48 Hgb (13.5-17.5) g/dL 13.3 L Hct (40.0-50.0) % 41.0 MCV (80-95) fL 92 MCH (27.0-33.0) pg 29.7 MCHC (32.0-36.0) % 32.4 RDW (11.8-14.1) % 13.6 Plt Count (130-400) 10^3/uL 190 MPV (8.0-11.0) fL 10.6 Immature Gran % 0.7 Neutrophils % 67.7 Lymphocytes % 18.2 Monocytes % 11.0 Eosinophils % 2.1 Basophils % 0.3 Nucleated RBC % (0.0-0.3) % 0.0 Absolute Neutrophils (1.2-6.7) 10^3/uL 3.94 Absolute Lymphocytes (1.2-3.4) 10^3/uL 1.06 L Absolute Monocytes (0.1-0.8) 10^3/uL 0.64 Absolute Eosinophils (0.0-0.7) 10^3/uL 0.12 Absolute Basophils (0.0-0.2) 10^3/uL 0.02 Sign Out Sign Out Data: Sign Out Comment: 77-year-old male presents for evaluation of dizzy episodes. He has had 3 dizzy episodes in the last 24 hours. Recent COVID infection. Patient still COVID-positive today. They have occurred while he was standing. He becomes diffusely weak in his extremities and needs to sit down. There are not vertiginous symptoms associated with this. Initial laboratory studies show elevated troponin. CTA head and neck as well as MRI were ordered. Repeat troponin ordered. Last updated by Antonieta Kc MD at 04/25/23 15:12
[2023-04-25 13:10] LABS: ALT 23 U/L (16-63); AST 23 U/L (15-37); Albumin 3.6 g/dL (3.4-5.0); Alkaline Phosphatase 124 U/L (46-116); Anion Gap 6.3 mmol/L (3-11); BUN 17 mg/dL (7-18); Bilirubin, Total 0.6 mg/dL (0.2-1.0); CO2 29.7 mmol/L (21.0-32.0); CREATININE 1.1 mg/dL (0.70-1.30); Calcium 9.2 mg/dL (8.5-10.1); Chloride 104 mmol/L (98-107); Estimated GFR 69.14 (mL/min/1.73m2); Glucose 114 mg/dL (74-106); Magnesium 1.9 mg/dL (1.8-2.4); Potassium 4.5 mmol/L (3.5-5.1); Sodium 140 mmol/L (136-145); TSH 1.75 uIU/mL (0.36-3.74); Total Protein 7.2 g/dL (6.4-8.2)
[2023-04-25 13:13] LABS: Troponin I 197 ng/L (<or=60)
--- NOTE | 2023-04-25 13:15 | DI.CT_ITS ---
Exam(s) CT BRAIN NECK CTA EXAM: CT BRAIN NECK CTA CLINICAL HISTORY: dizziness. TECHNIQUE: Imaging Protocol: Axial CT angiography was performed with multi-slice acquisition and mu lti-planar and/or 3D reconstructions. CONTRAST MATERIAL: Intravenous: Omnipaque 350 Contrast volume:structured data in ml COMPARISON: CT CT CHEST PE CTA from 03/18/2023 FINDINGS: CTA Neck W: Aortic arch anatomy: The aortic arch anatomy is conventional and there is no significant stenosis at the origin of the great vessels off of the aortic arch. No intimal flap evident. Anterior circulation: Both common carotid arteries ascend with normal luminal diameters. At the level of the left carotid bulb there is calcified plaque on the posterolateral wall and extend ing up into the origin of the left ICA. Amount of stenosis estimated at 20-30 percent. Above this l evel the left ICA in the upper neck is nicely patent. On the opposite-right side there is a lesser amount of plaque at the bulb and proximal right ICA with approximately 10 percent stenosis. There is no dissection. Right ICA above this level is patent in the upper neck and skull base-carotid canals. Posterior circulation: Both vertebral arteries originate in conventional fashion off of the subclavian arteries and there is no obvious stenosis at the origin of the vertebral arteries. Both vertebral arteries exhibit normal luminal diameters within the foramen transversarium. Both vertebral arteries contribute to the formation of the basilar artery at the skull base. CTA Brain W: Anterior circulation: Both internal carotid arteries are patent in the skull base-carotid canals as well as within the cave rnous sinuses. Supraclinoid aspects are patent and nonaneurysmal. Both A1 segments are patent as are both anterior cerebral arteries and there is no aneurysm at the level of the anterior communicating artery. Both middle cerebral arteries are patent with no evidence of significant stenosis nor intraluminal th rombus. There also no aneurysms of these vessels. Posterior circulation: The basilar artery ascends in the midline. Distally it gives off patent bilateral superior cerebella r arteries. Above this level the basilar artery terminates as patent bilateral posterior cerebral arteries. There is no evidence of aneurysm at the tip of the basilar artery nor elsewhere in the [id number] is. CT BRAIN: There is no evidence of intracranial hemorrhage, mass effect, or shift of midline structures. There are no extra-axial fluid collections. Ventricles are not enlarged or shifted. There are no ring enh ancing lesions in the brain and no abnormal meningeal enhancement. IMPRESSION: 1. There is some plaque bilaterally at the carotid bulbs and proximal ICAs, slightly more so on the l eft than right but the amount of stenosis is less than 30 percent bilaterally. No evidence of dissec tion. 2. Patent vertebral arteries. 3. Patent intracranial arteries. 4. No abnormal enhancing intracranial findings. Called by myself to ER physician. RADIATION DOSE DELIVERED: 2,225.14mGy.cm Total DLP DATA REPOSITORY: All CT scans at this facility are submitted to the National Radiology Data Registry (NRDR) Dose Index Registry (DIR) with the [employer] (ACR). RADIATION OPTIMIZATION: All CT scans at this facility use at least one of these dose optimization te chniques: automated exposure control; mA and/or kV adjustment per patient size (includes targeted exa ms where dose is matched to clinical indication); or iterative reconstruction.
[2023-04-25 13:17] LABS: Influenza A PCR Negative (Negative); Influenza B PCR Negative (Negative); RSV PCR Negative (Negative)
[2023-04-25 13:21] LABS: Source Nasopharynx
--- NOTE | 2023-04-25 13:21 | DI.RAD_ITS ---
Exam(s) XR PORTABLE CHEST AP EXAM: XR PORTABLE CHEST AP CLINICAL HISTORY: dizziness TECHNIQUE: 2D digital imaging was performed of the chest. Two images were obtained. AP views were obtained. COMPARISON: CR CHEST 2 VIEWS PA,LAT from 11/12/2016 FINDINGS: MEDIASTINUM: Normal. HEART: Normal. Status post CABG. PULMONARY VASCULATURE: Normal. LUNGS: Clear. PLEURAL SPACE: No pleural effusion or pneumothorax. BONE:Within normal limits for the patient's age. OTHER FINDINGS:Normal. IMPRESSION: No acute pulmonary findings. DATA REPOSITORY: RADIATION DOSE DELIVERED:
[2023-04-25 13:23] LABS: Bilirubin Negative (Negative); Blood Moderate (Negative); Clarity Clear (Clear); Glucose Negative (Negative); Ketones Negative (Negative); Leukocyte Esterase Negative (Negative); Nitrite Negative (Negative); Urobilinogen 0.2 mg/dL (Up to 0.2); pH 6.5 (5-8)
[2023-04-25 13:23] LABS: COVID-19 PCR Positive (Negative)
[2023-04-25 13:30] LABS: Epithelial Cells Rare HPF (Negative); WBC Negative HPF (0-5)
--- NOTE | 2023-04-25 13:30 | DI.MRI_ITS ---
Exam(s) MR BRAIN WO EXAM: MR BRAIN WO CLINICAL HISTORY: dizziness, stroke eval TECHNIQUE: Multiplanar multisequence MRI of the brain was performed. COMPARISON: CT CT BRAIN NECK CTA from 04/25/2023 CR XR PORTABLE CHEST AP from 04/25/2023 FINDINGS: CEREBRAL PARENCHYMA: There is no evidence of intracranial hemorrhage, mass effect, or shift of midline structures. There are no extra-axial fluid collections. Ventricles are not enlarged or shifted. There are multiple foci of FLAIR bright signal abnormality consistent with chronic small vessel disea se. There are also multiple tiny foci of restricted diffusion in bilateral Chelsie supra ventricular wh ite matter consistent with multiple ischemic emboli. These are also seen in the right occipital lobe . There is no associated hemorrhage nor surrounding edema. PITUITARY GLAND: No mass nor parasellar abnormality. No obvious abnormality in the cavernous sinuses. FLOW VOIDS: The expected flow void are noted. No evidence of obvious aneurysm nor obvious vascular ma lformation. PARANASAL SINUSES: Mucosal thickening without fluid level in the left maxillary sinus. Other paranas al sinuses are clear. ORBITS: No obvious findings. IMPRESSION: There are multiple tiny foci of restricted diffusion in both cerebellar hemispheres as well as the ri ght occipital lobe consistent with multiple tiny lacunar infarcts, possibly embolic given the distrib ution. These are not associated with hemorrhage or surrounding edema. Called by myself to ER physician. DATA REPOSITORY:
[2023-04-25 13:31] LABS: Bacteria Negative HPF (Negative); C & S Indicated? No; Casts 0-2 Hyaline LPF (Negative); Crystals Negative HPF (Negative); Mucus Negative (Negative)
[2023-04-25] MEDS: LORazepam 2 MG/ML VIAL 1 MG IVP (15:26)
[2023-04-25 16:16] LABS: Troponin I 305 ng/L (<or=60)
[2023-04-25] MEDS: Normal Saline - Diluent 50 ML VIAL IJ (17:08)
[2023-04-25] MEDS: Omnipaque 350 MG/ML 100 ML BTL 85 ML IJ (17:09)
[2023-04-25] MEDS: Normal Saline Flush 10 ML SYR IVP (17:10)
--- NOTE | 2023-04-25 17:15 | RT.EKG_ITS ---
APPROVED REPORT Exam: Resting ECG Reason for Exam: dizziness; elevated trop Patient Location: E HR:64 bpm ECG Measurements Heart Rate 64 AXIS MA 168 P 34 QRSd 107 QRS -19 QT 480 T 34 QTc 475 Conclusion Sinus bradycardia...rate< 60 Ventricular premature complex...V complex w/ short R-R interval Normal Otho There are no significant changes compared to prior EKG performed on 04/25/2023 at 12:19.
--- NOTE | 2023-04-25 21:28 | W.EDPROG ---
Date of service: 04/25/23 Time of Service: 21:28 Medical Decision Making Patient signed out to me pending imaging and repeat troponin. He had presented due to 3 separate incidents of lightheadedness, generalized weakness, feeling off that occurred over the last 24 hours. He denies any headache, chest pain, shortness of breath, focal neurologic symptoms. He is on Eliquis since March 18 when he was diagnosed with upper extremity DVT and pulmonary embolus. He also developed COVID in mid March but recovered and is asymptomatic from that standpoint. His initial troponin was elevated despite a normal EKG and no chest pain. A repeat troponin was pending and imaging being obtained at time of signout. Patient's repeat EKG remains normal. His repeat troponin is now elevated to 305, up from 197. CTA head and neck do show some stenosis of the internal carotids but not greater than 60%. His brain MRI shows evidence of tiny bihemispheric infarcts which are acute. Therefore, consult with [facility] neurology and [facility] cardiology was undertaken. Per neurology patient is already maxed out in regards to management of stroke given that he is anticoagulated on Eliquis. Per cardiology patient should undergo echo, monitoring, trending of enzymes. Patient is not febrile and does not have elevated white count and endocarditis seems unlikely though some potential valve pathology may be leading to embolic phenomenon. Discussed all of the above with patient and . Discussed with hospitalist. Patient will be admitted for further evaluation and management. Medical Records Medical records reviewed: Yes I reviewed the patient's medical records. Lab Data Lab results reviewed: Yes I reviewed the patient's lab results. ECG Data Attestation: I personally reviewed and interpreted this ECG (s) as follows: Prior ECG tracings: available for review Interpretation: Sinus bradycardia with normal ST segments. Sign Out Sign Out Data: Sign Out Comment: 77-year-old male presents for evaluation of dizzy episodes. He has had 3 dizzy episodes in the last 24 hours. Recent COVID infection. Patient still COVID-positive today. They have occurred while he was standing. He becomes diffusely weak in his extremities and needs to sit down. There are not vertiginous symptoms associated with this. Initial laboratory studies show elevated troponin. CTA head and neck as well as MRI were ordered. Repeat troponin ordered. Last updated by Antonieta Kc MD at 04/25/23 15:12 Discharge Plan Disposition Patient Disposition: Admit to [facility] Condition: Fair Discharge Details Clinical Impression: Dizziness, Elevated troponin, Embolic cerebrovascular disease Primary Care Provider: Aakash Turner ED [facility] Prescriptions: No Action potassium citrate 10 mEq (1,080 mg) tablet extended release 10 meq PO DAILY Qty: 90 3RF atorvastatin 40 mg tablet 40 mg PO DAILY Qty: 90 12RF Shingrix (PF) 50 mcg/0.5 mL suspension for reconstitution 0.5 ml IM ONCE Qty: 1 0RF Rx Instructions: as a single dose lorazepam 1 mg tablet 1 mg PO DAILY PRN (Reason: anxiety) Qty: 10 0RF metoprolol succinate 25 mg tablet extended release 24 hr 25 mg PO DAILY Qty: 90 3RF isosorbide mononitrate 60 mg tablet extended release 24 hr 60 mg PO DAILY Qty: 90 3RF amlodipine 5 mg tablet 5 mg PO DAILY Qty: 90 3RF cholecalciferol (vitamin D3) 25 mcg (1,000 unit) capsule 25 mcg PO DAILY Qty: 90 3RF omeprazole 40 mg capsule,delayed release(DR/EC) 40 mg PO DAILY Qty: 90 3RF sotalol [Betapace] 160 mg tablet 160 mg PO BID Qty: 180 3RF apixaban 5 mg tablet 5 mg PO BID Qty: 180 3RF
[2023-04-26] VITALS (7 sets, daily range): BP systolic 100–115; BP diastolic 53–66; PULSE 61–75; RESP 15–18; TEMP 36.6–37; O2SAT 93–94
--- NOTE | 2023-04-26 00:49 | HPE_ITS ---
Date of service: 04/26/23 Time of Service: 12:10 Assessment and Plan Assessment and plan (1) Embolic cerebrovascular disease: Status: Acute Assessment and plan: New small embolic disease on MRI that likely correlates with his symptoms. The case was already reviewed with [facility] neurology. He is on appropriate therapy with apixaban. Additional work up includes echocardiogram, telemetry. I do think neurology consult would be helpful, as the source of the embolism is not clear. (2) Elevated troponin: Status: Acute Assessment and plan: Elevated troponin but no chest pain and EKG no c/w MT. He does have an extensive cardiac history. Monintoring on telemetry, following troponins. (3) COVID-19: Status: Acute Assessment and plan: This was diagnosed >10 days ago per outpatient record and he no longer has symptoms, so he should not be infectious. Will try to confirm testing dates before taking him off precautions (4) Atrial fibrillation: Status: Acute Assessment and plan: Now in sinus, on sotolol and metoprolol. He is anticoagulated. Echo will be important to look for clots in the heart as well as possible ASD that could lead to a CVA from his DVT (5) Atherosclerosis of [place] coronary artery: Status: Acute Assessment and plan: Continue high intensity statin, though last LDL not quite at goal at 71. He isn't on aspirin per our records. Troponin high now and case was reviewed with [facility] cardiology. Trend troponins and monitor for symptoms. (6) DVT prophylaxis: Status: Acute Assessment and plan: He is already anticoagulated. (7) Discharge planning issues: Status: Acute Assessment and plan: STable currently on telemetry given cardiac disease with elevated troponins. History of Present Illness History of Present Illness Chief Complaint: lightheaded spells Narrative: 77 yo M with history of CAD and Atrial fibrillation who was diagnosed with an left upper extremity DVT 03/18/23 as well as COVID 10 infection diagnosed 12 days ago presenting after the third episode of acute lightheadedness and weakness that occured in the last 2 days. The first episode occured 1 day prior to his presentation, on 04/24/23. He was walking with a gallon of water and suddenly felt lightheaded, like he might pass out. He went into his house and collapsed on a bench face first with knees on the floor. He felt like he couldn't move his arms or legs, both sides about equally. He did not have a headache or nausea. No chest pain or palpitations. This passed after about 4-5 minutes, but something similar happened later in the day, this time while he was sitting down. This time he stood up and tried to walk but had to lean against the wall. He first went to [facility] and they told him to come to the ED. It happened a third after he presented to the ED. Review of Systems Constitutional Constitutional: Denies chills, Denies fever(s), Denies headache(s), Reports poor appetite, Denies weakness and Reports weight loss (has lost 7-8lbs in the past couple months, not as hungry) Eyes Eyes: Denies change in vision and Denies irritation ENT Ears, Nose, Mouth, and Throat: Denies dizziness, Denies headache(s), Denies nasal congestion, Denies nasal discharge and Denies sore throat Cardiovascular Cardiovascular: Reports as per HPI, Denies chest pain, Denies leg edema, Denies palpitations, Denies dyspnea and Denies orthopnea Respiratory Respiratory: Denies cough, Denies excessive phlegm production, Denies dyspnea and Denies wheezing Gastrointestinal Gastrointestinal: Denies abdominal pain, Denies change in bowel habits, Denies heartburn, Denies diarrhea, Denies nausea and Denies vomiting Genitourinary Genitourinary: Denies hematuria, Denies dysuria and Denies urinary incontinence Musculoskeletal Comments: no joint pain Integumentary/Breasts Skin/Breast: Denies rash and Denies skin ulcer Neurologic Neurologic: Denies dizziness, Denies headache(s), Denies sensory deficit and Denies weakness Psychiatric Psychiatric: Denies mood swings Endocrine Endocrine: Denies palpitations Hematologic/Lymphatic Hematologic/Lymphatic: Denies easy bleeding Allergic/Immunologic Allergic/Immunologic: Denies wheezing PFSH All Active Problems (Updated 04/26/23 @ 01:23 by Jhonny Robles) Discharge planning issues (Acute) DVT prophylaxis (Acute) Dizziness (Acute) Elevated troponin (Acute) Embolic cerebrovascular disease (Acute) COVID-19 (Acute) 04/14/23 Hyperglycemia (Acute) [id number] BPH associated with nocturia (Acute) Actinic keratosis (Acute) Gastroesophageal reflux disease without esophagitis (Acute) Dysphonia (Acute) Tubular adenoma (Acute) , ? 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 2017 had three stents placed. 2 MT's 1996 & 1989 F/U with Dr. Barraza in [place] 07/15 History of coronary artery bypass surgery History of lithotripsy LITHOTRIPSY Status post appendectomy Family History Mother , AGE 92 No problems noted. Father , AGE 72 No problems noted. Brother , AGE 72 No problems noted. Brother No problems noted. Son No problems noted. Daughter No problems noted. Social History Smoking/Tobacco Use Status: Former Tobacco Use tobacco type: cigarettes Quit Date: 07/28/95 Tobacco: How many years used: 20 Second Hand Exposure: Yes Smoking risk assessment performed?: Yes Alcohol Intake: current Alcohol Intake frequency: a few times a week Alcohol type: hard liquor Drug use: Never Substance use type: does not use Caregiver/Support person: No Household members: spouse Housing: house Communication Needs: Hard of Hearing Do you need help understanding health information?: Rarely Pets and animals: No Sexually active: No Do you think of yourself as: straight/heterosexual Current gender identity: male What is your relationship status?: How often do you talk on the phone with friends or family?: three or more times per week How often do you get together with friends or relatives?: twice per week Do you belong to any clubs or organized social groups?: no Panel score (0-1 are the most socially isolated patients): 2 What type of physical activity do you participate in: walking and bicycling Duration: 30-45 minutes/day Frequency: 3-4 times per week Ruth/Caodaism: Quaker Special ruth needs: No Do you feel safe at home: Yes Do you feel safe in your relationship?: Yes Meds Allergies and Home Medications Allergies Allergy/AdvReac Type Severity Reaction Status Date / Time No Known Allergies Allergy Verified 04/25/23 10:32 Home Medications Medication Instructions Recorded Confirmed Type metoprolol succinate 25 mg 25 mg PO DAILY #90 tabs 07/31/22 04/25/23 Rx tablet,extended release 24 hr amlodipine 5 mg tablet 5 mg PO DAILY #90 tabs 11/20/22 04/25/23 Rx isosorbide mononitrate 60 mg 60 mg PO DAILY #90 tabs 11/20/22 04/25/23 Rx tablet,extended release 24 hr omeprazole 40 mg capsule,delayed 40 mg PO DAILY #90 caps 11/20/22 04/25/23 Rx release sotalol 160 mg tablet (Betapace) 160 mg PO BID #180 tabs 11/20/22 04/25/23 Rx atorvastatin 40 mg tablet 40 mg PO DAILY #90 tabs 01/03/23 04/25/23 Rx potassium citrate 10 mEq (1,080 10 meq PO DAILY #90 tabs 01/03/23 04/25/23 Rx mg) tablet,extended release varicella-zoster glycoE [id number] 0.5 ml IM ONCE #1 ea 01/03/23 04/25/23 Rx adj(PF) 50 mcg/0.5 mL IM susp, kit (Shingrix (PF)) lorazepam 1 mg tablet 1 mg PO DAILY PRN anxiety #10 tabs 03/26/23 04/25/23 Rx apixaban 5 mg tablet 5 mg PO BID #180 tabs 04/04/23 04/25/23 Rx Exam Narrative Exam Narrative: GEN: Alert and oriented x 3, pleasant and cooperative, gives linear history. No acute distress at rest. HEENT: Head atraumatic. Conjunctiva clear, no icterus. PEERL, EOMI. no rhinorrhea. MMM, OP benign. Neck is supple with no masses or lymphadenopathy, trachea midline LUNGS: CTAB with normal effort CV: RRR with no murmurs, gallops, or rubs. ABD: +BS, soft, NT/ND EXT: no cyanosis, clubbing, or edema MSK: No joint redness or swelling NEURO: CN 2-12 grossly intact x hearing. Visual hemphill intact to confrontation. No pronator drift. DTRs symmetric iliana in LE. He does have some iliana increased clonus. Normal tone, normal strength and sensation to light touch of 4 extremities. Normal speech and coordination SKIN: No rashes or open wounds. PSYCH: normal mood and affect Results Imaging Chest x-ray: report reviewed (No acute pulmonary findings) CT scan - pelvis: report reviewed EKG: report reviewed (Sinus bradycardia...rate< 60 Ventricular premature complex...V complex w/ short R-R interval Normal [place] There are no significant changes compared to prior EKG performed on 04/25/2023 at 12:19.) Imaging Studies: CTA Head/Neck: 1. There is some plaque bilaterally at the carotid bulbs and proximal ICAs, slightly more so on the left than right but the amount of stenosis is less than 30 percent bilaterally.? No evidence of dissection.? 2.? Patent vertebral arteries. 3.? Patent intracranial arteries. 4. No abnormal enhancing intracranial findings. Brain MRI: There are multiple tiny foci of restricted diffusion in both cerebellar hemispheres as well as the right occipital lobe consistent with multiple tiny lacunar infarcts, possibly embolic given the distribution.? These are not associated with hemorrhage or surrounding edema. Labs 04/25/23 12:38 04/25/23 12:38 Labs: Laboratory Results - last 24 hr 04/25/23 04/25/23 04/25/23 12:30 12:38 12:38 WBC 5.82 RBC 4.48 Hgb 13.3 L Hct 41.0 MCV 92 MCH 29.7 MCHC 32.4 RDW 13.6 Plt Count 190 MPV 10.6 Immature Gran % 0.7 Neutrophils % 67.7 Lymphocytes % 18.2 Monocytes % 11.0 Eosinophils % 2.1 Basophils % 0.3 Nucleated RBC % 0.0 Absolute Neutrophils 3.94 Absolute Lymphocytes 1.06 L Absolute Monocytes 0.64 Absolute Eosinophils 0.12 Absolute Basophils 0.02 Sodium 140 Potassium 4.5 Chloride 104 Carbon Dioxide 29.7 Anion Gap 6.3 BUN 17 Creatinine 1.1 Est GFR (CKD-EPI 2020) 69.14 Glucose 114 H Calcium 9.2 Magnesium 1.9 Total Bilirubin 0.6 AST 23 ALT 23 Alkaline Phosphatase 124 H Troponin I 197 H* Total Protein 7.2 Albumin 3.6 TSH 1.75 Urine Color Urine Clarity Urine pH Ur Specific [place] Urine Protein Urine Ketones Urine Blood Urine Nitrite Urine Bilirubin Urine Urobilinogen Ur Leukocyte Esterase Urine RBC Urine WBC Ur Epithelial Cells Urine Crystals Urine Bacteria Urine Casts Urine Mucus Ur Culture Indicated? Urine Glucose COVID-19 Source Nasopharynx SARS-CoV-2 (PCR) Positive A Influenza Type A (PCR) Negative Influenza Type B (PCR) Negative RSV (PCR) Negative 04/25/23 04/25/23 13:02 15:50 WBC RBC Hgb Hct MCV MCH MCHC RDW Plt Count MPV Immature Gran % Neutrophils % Lymphocytes % Monocytes % Eosinophils % Basophils % Nucleated RBC % Absolute Neutrophils Absolute Lymphocytes Absolute Monocytes Absolute Eosinophils Absolute Basophils Sodium Potassium Chloride Carbon Dioxide Anion Gap BUN Creatinine Est GFR (CKD-EPI 2020) Glucose Calcium Magnesium Total Bilirubin AST ALT Alkaline Phosphatase Troponin I 305 H* Total Protein Albumin TSH Urine Color Yellow Urine Clarity Clear Urine pH 6.5 Ur Specific [place] 1.010 Urine Protein Trace H Urine Ketones Negative Urine Blood Moderate H Urine Nitrite Negative Urine Bilirubin Negative Urine Urobilinogen 0.2 Ur Leukocyte Esterase Negative Urine RBC 10-20 H Urine WBC Negative Ur Epithelial Cells Rare Urine Crystals Negative Urine Bacteria Negative Urine Casts 0-2 Hyaline Urine Mucus Negative Ur Culture Indicated? No Urine Glucose Negative COVID-19 Source SARS-CoV-2 (PCR) Influenza Type A (PCR) Influenza Type B (PCR) RSV (PCR) Last Vital Signs Temp 36.3 C L 04/25/23 22:54 Pulse 60 04/25/23 22:54 Resp 20 04/25/23 22:54 BP 126/67 04/25/23 22:54 Pulse Ox 94 04/25/23 22:54 Time Spent Time spent with Patient: 55-74 minutes Time was spent: preparing to see the patient(eg.review tests), obtaining and/or reviewing separately otained hiistory, ordering medications,tests, procedures, referring, communicating with other health inpatient care manager rn, indepentently interpreting results and counseling the patient
[2023-04-26 08:15] LABS: Lab Add On Test DONE
[2023-04-26 08:19] LABS: Troponin I 584 ng/L (<or=60)
[2023-04-26 08:27] LABS: Hemoglobin A1C 6.1 % (<5.7)
[2023-04-26] MEDS: amLODIPine 5 MG TAB PO (08:41)
[2023-04-26] MEDS: Omeprazole 20 MG CAPCR 40 MG PO (08:42)
[2023-04-26] MEDS: Atorvastatin 40 MG TAB PO (08:42)
[2023-04-26] MEDS: Isosorbide Mononitrate 60 MG TABCR PO (08:43)
[2023-04-26] MEDS: Metoprolol CR 25 MG TABCR PO (08:43)
[2023-04-26] MEDS: Apixaban 5 MG TAB PO ×2 (08:43→20:34)
--- NOTE | 2023-04-26 09:18 | PT.INIE ---
PT Notes Visit Reasons: small brain infarcts, elevated troponin Physical Therapy Inpatient Initial Evaluation Date: 04/26/23 Referring Doctor: Jhonny Robles PT Orders: PT CONSULT: Fall safety assessment, eval for assistive device Precautions: Fall. Standard. COVID-19. Patient Profile/Admitting Diagnosis: Francisco is 77 yo male that presented to the ER on 04/25/23 for episodes of lightheadedness and just not feeling quite right. Started the day prior but took him to urgent care yesterday and they recommended ER. Findings of new small embolic CVAs. He tested positive for COVID-19 at home on 04/14/23, but has been asymptomatic. He reports no episodes since yesterday morning. PMHX: See EMR Social History/Home Situation: Lives with spouse, home with daylight basement, 4 [address] with rail. Independent at baseline with no use of AD. Equipment Owned/DME: None Subjective: Cleared by nursing to see patient and patient is agreeable to PT. Patient is resting in bed at time of consult and connected to telemetry. Objective: General Observation: Has hearing aide, pleasant and alert. Facial asymmetry with left seeming more active and more smile lines at mouth and eye. Mental Status: A&O x3 Pain: None reported ROM: Right Upper Extremity: Shoulder Flexion WFL. Shoulder abduction WFL. Elbow flexion WFL. Wrist flexion WFL. Opening and closing of hand WFL. Left Upper Extremity: Shoulder Flexion WFL. Shoulder abduction WFL. Elbow flexion WFL. Wrist flexion WFL. Opening and closing of hand WFL. Right Lower Extremity: Hip flexion WFL. Hip abduction WFL. Knee flexion WFL. Ankle dorsiflexion WFL. Ankle plantarflexion WFL. Left Lower Extremity: Hip flexion WFL. Hip abduction WFL. Knee flexion WFL. Ankle dorsiflexion WFL. Ankle plantarflexion WFL. Strength: Right Upper Extremity: Shoulder flexors 5/5. Shoulder abductors 5/5. Elbow flexors 5/5. Elbow extensors 5/5. Card Writer Hand strong. Left Upper Extremity: Shoulder flexors 5/5. Shoulder abductors 5/5. Elbow flexors 5/5. Elbow extensors 5/5. Card Writer Hand strong. Right Lower Extremity: Hip flexors 5/5. Knee flexors 5/5. Knee extensors 5/5. Ankle dorsiflexors 5/5. Ankle plantarflexors 5/5. Left Lower Extremity: Hip flexors 5/5. Knee flexors 5/5. Knee extensors 5/5. Ankle dorsiflexors 5/5. Ankle plantarflexors 5/5. Sensation: Intact as to pain and pressure on bilateral lower extremities. Bed Mobility/Transfers: Rolling: Independent Supine to sit: Independent Sit to supine: Independent Sit to stand: Independent Stand to sit: Independent Bed to chair: Independent Chair to bed: Independent Gait: Ambulated 15 feet in room without AD, supervision - unable to go further due to airborne precautions, limited to room Stairs: Unable to assess due to airborne precautions, limited to room Balance: Static Sitting: Normal Dynamic Sitting: Normal Static Standing: Normal Dynamic Standing: Good Special Tests: Mobility Limitations Standardized Measure [facility] AM-PAC 6 clicks Basic Mobility Inpatient Short Form: Raw Score: 24 CMS Score: 0% Informed Consent/Education: Patient instructed in purpose of PT consult and plan of care. Assessment: Patient is independent with mobility during assessment. No limitations in transfers. He has functional ROM throughout. Normal upper and lower extremity strength. Balance is fair with increased challenge in left single leg stance. No current mobility or physical needs that required skilled acute care PT services. Patient will be discharged from acute care PT. Patient is assessed as a Low complexity based on the following: History: 77 year old male with impairment level findings, functional limitations, and past medical history as indicated above Examination: Demonstrable impairment in strength, balance, and mobility level with underlying impairments and functional limitations as documented above Presentation: Stable Decision Making: Low complexity Plan of Care/Treatment Plan: Evaluation only Discharge Plan DISCHARGE RECOMMENDATIONS: Home with no services TREATMENT CODE/TIME: 8:47-9:17 (30 minutes), [id number] Thank you for the opportunity to participate in the care of this patient. Shawnee Eldridge, PT, DPT, OCS [facility] [place], [place]
--- NOTE | 2023-04-26 09:30 | PDOC.CMIN ---
Date of service: 04/26/23 Time of Service: 09:30 Care Management Initial Assmt Initial Assessment REASON FOR HOSPITALIZATION:: Embolic cerebrovascular disease, Elevated troponin, Covid PREVIOUS FUNCTIONAL STATUS/SOCIAL/FAMILY SUPPORTS:: Francisco lives in [facility] with his Elma. He is retired is a retired teacher. Francisco is active and independent at baseline. CURRENT FUNCTIONAL STATUS:: Francisco is on Covid precautions, CM called patients room and spoke with his via phone. Questions are answered. ADVANCE DIRECTIVES:: None on file, Per forms are at home. Has patient been provided with info about the portal/API?: Yes Did the patient sign up for the portal?: Yes (Prior to admission) CODE STATUS:: Full Code INSURANCE COVERAGE / FINANCIAL ISSUES:: [place] of [place] Medicare CURRENT HOME/COMMUNITY SERVICES/EQUIPMENT:: None PRIMARY CARE PHYSICIAN:: Aakash Turner POTENTIAL DISCHARGE NEEDS:: Discharge plan of care, including plan to follow up with community providers. PATIENT/FAMILY EDUCATION NEEDS:: Review discharge instructions, limitations, medications and plan to follow up with community providers. Discuss ask me three. ANTICIPATED BARRIERS TO DISCHARGE:: None identified TRANSPORTATION:: Via private vehicle with family PLAN:: Anticipate Francisco will discharge home via private vehicle with family when medically ready per provider. He will follow up with community providers and his discharge plan of care as instructed. No [facility] services are indicated at this time. PFSH All Active Problems (Updated 04/26/23 @ 01:23 by Jhonny Robles) Discharge planning issues (Acute) DVT prophylaxis (Acute) Dizziness (Acute) Elevated troponin (Acute) Embolic cerebrovascular disease (Acute) COVID-19 (Acute) 04/14/23 Hyperglycemia (Acute) [id number] BPH associated with nocturia (Acute) Actinic keratosis (Acute) Gastroesophageal reflux disease without esophagitis (Acute) Dysphonia (Acute) Tubular adenoma (Acute) , ? 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 2017 had three stents placed. 2 FL's 1996 & 1989 F/U with Dr. Barraza in [place] 07/15 History of coronary artery bypass surgery History of lithotripsy LITHOTRIPSY Status post appendectomy Family History Mother , AGE 92 No problems noted. Father , AGE 72 No problems noted. Brother , AGE 72 No problems noted. Brother No problems noted. Son No problems noted. Daughter No problems noted. Social History Smoking/Tobacco Use Status: Former Tobacco Use tobacco type: cigarettes Quit Date: 07/28/95 Tobacco: How many years used: 20 Second Hand Exposure: Yes Smoking risk assessment performed?: Yes Alcohol Intake: current Alcohol Intake frequency: a few times a week Alcohol type: hard liquor Drug use: Never Substance use type: does not use Caregiver/Support person: No Household members: spouse Housing: house Communication Needs: Hard of Hearing Do you need help understanding health information?: Rarely Pets and animals: No Sexually active: No Do you think of yourself as: straight/heterosexual Current gender identity: male What is your relationship status?: How often do you talk on the phone with friends or family?: three or more times per week How often do you get together with friends or relatives?: twice per week Do you belong to any clubs or organized social groups?: no Panel score (0-1 are the most socially isolated patients): 2 What type of physical activity do you participate in: walking and bicycling Duration: 30-45 minutes/day Frequency: 3-4 times per week Ruth/Restorationism: Pentecostalism Special ruth needs: No Do you feel safe at home: Yes Do you feel safe in your relationship?: Yes
--- NOTE | 2023-04-26 11:15 | RT.EKG_ITS ---
APPROVED REPORT Exam: Resting ECG Reason for Exam: elevated troponin Patient Location: I HR:62 bpm ECG Measurements Heart Rate 62 AXIS NM 164 P 35 QRSd 108 QRS -14 QT 439 T 12 QTc 446 Conclusion Sinus rhythm...normal P axis, V-rate 50- 99
[2023-04-26 12:53] LABS: Troponin I 464 ng/L (<or=60)
[2023-04-26 13:57] LABS: Source Nasopharynx
[2023-04-26 14:31] LABS: COVID-19 PCR POSITIVE (Negative)
--- NOTE | 2023-04-26 17:00 | RT.EKG_ITS ---
APPROVED REPORT Exam: Resting ECG Reason for Exam: abnormal troponin, possible LBBB Patient Location: I HR:55 bpm ECG Measurements Heart Rate 55 AXIS MD 166 P 44 QRSd 112 QRS -11 QT 492 T 14 QTc 471 Conclusion Sinus rhythm...normal P axis, V-rate 50- 99 Borderline intraventricular conduction delay...QRSd >112mS
--- NOTE | 2023-04-26 17:05 | W.PM.PROGNOT ---
Date of Service Date of service: 04/26/23 Time of Service: 17:05 Assessment and Plan Assessment and plan (1) Dizziness: Status: Acute Assessment and plan: Etiology of this dizziness is unclear. This could be related to the multiple small lacunar infarcts. Etiology of these infarcts is not clear. Echocardiography is not available today being Friday. He is on anticoagulation with apixaban. (2) Elevated troponin: Status: Acute Assessment and plan: His troponin is elevated yesterday when he came in then dropped but has been rising since admission. Electrocardiogram today shows some flattening of his T waves in the precordial leads of V2 through V6. This is different than the previous electrocardiograms from March 18 and the 3 that were done yesterday. I have faxed the electrocardiogram to [facility] and requested to talk to her director of casework department about the rising troponin as well as the slight change on electrocardiogram. The ICU nurse just noted on his rhythm strips that he might have a left bundle branch block. I have asked for repeat electrocardiogram. I have asked for a repeat troponin tomorrow. (3) COVID-19: Status: Acute Assessment and plan: He tested positive with a COVID antigen test today. He has no respiratory symptoms. Subjective Subjective Interval history since last seen: This 77-year-old male seen in follow-up for his multiple small lacunar infarcts of his head, his repeated symptoms of weakness lightheadedness and dizziness yesterday and the day before as well as for his abnormal troponin levels. He has a history of coronary disease with a coronary artery bypass graft years ago as well as multiple stents after that. He also has had a recent left upper extremity deep venous thrombosis and pulmonary embolism. He feels fine at the present time although has not been very active. He has been able to get to the bathroom and back without symptoms. Neurology and cardiology at [facility] were consulted yesterday from the emergency department and neither felt that he should be transferred there. Objective Last Vital Signs Temp 37.0 C 04/26/23 15:56 Pulse 66 04/26/23 15:56 Resp 16 04/26/23 15:56 BP 108/61 04/26/23 15:56 Pulse Ox 93 04/26/23 15:56 Laboratory Results - last 24 hr 04/25/23 04/26/23 04/26/23 07:30 07:30 07:30 Hemoglobin A1c 6.1 H Troponin I 584 H* COVID-19 Source SARS-CoV-2 (PCR) Add-On Test Request DONE 04/26/23 04/26/23 12:24 13:44 Hemoglobin A1c Troponin I 464 H* COVID-19 Source Nasopharynx SARS-CoV-2 (PCR) POSITIVE A* Add-On Test Request Objective Narrative Objective Narrative: He is alert male no distress. The exam was done with his present. Head: Normocephalic. Extraocular movements were normal. Mouth: Normal tongue protrusion and movement [id number]. Speech appears normal. He did have some difficulty recalling some the events that caused him to come to the emergency department but seem to remember them after his prompted him. Neck: No JVD. Lungs: Clear breath sounds bilaterally. Heart: Regular rhythm without murmurs or gallops. Extremities: No edema. Time Spent with Patient Time Spent with Patient: 35-49 minutes Time was spent: preparing to see the patient(eg.review tests), ordering medications,tests, procedures, referring, communicating with other health hearing care professional, indepentently interpreting results and counseling the patient
[2023-04-27] VITALS (7 sets, daily range): BP systolic 107–130; BP diastolic 56–72; PULSE 58–62; RESP 16–18; TEMP 36.1–36.7; O2SAT 91–95
[2023-04-27 01:06] LABS: Troponin I 402 ng/L (<or=60)
[2023-04-27] MEDS: Atorvastatin 40 MG TAB PO (07:48)
[2023-04-27] MEDS: Apixaban 5 MG TAB PO ×2 (07:48→20:58)
[2023-04-27] MEDS: Isosorbide Mononitrate 60 MG TABCR PO (07:48)
[2023-04-27] MEDS: Metoprolol CR 25 MG TABCR PO (07:49)
[2023-04-27] MEDS: Omeprazole 20 MG CAPCR 40 MG PO (07:49)
[2023-04-27] MEDS: amLODIPine 5 MG TAB PO (07:49)
[2023-04-27] MEDS: Polyethylene Glycol 3350 17 GM PACKET PO (08:04)
[2023-04-27 10:10] LABS: Anion Gap 7.2 mmol/L (3-11); BUN 22 mg/dL (7-18); CO2 27.8 mmol/L (21.0-32.0); CREATININE 1.1 mg/dL (0.70-1.30); Calcium 9.1 mg/dL (8.5-10.1); Chloride 104 mmol/L (98-107); Estimated GFR 69.14 (mL/min/1.73m2); Glucose 125 mg/dL (74-106); Magnesium 1.9 mg/dL (1.8-2.4); Potassium 4.1 mmol/L (3.5-5.1); Sodium 139 mmol/L (136-145)
[2023-04-27] MEDS: Normal Saline Flush 10 ML SYR IVP (13:41)
--- NOTE | 2023-04-27 15:41 | NUR.NOTE ---
pt originally tested positive for covid on 04/12/2023 per his . Nursing Note:
--- NOTE | 2023-04-27 20:02 | PGE_ITS ---
Date of Service Date of service: 04/27/23 Time of Service: 20:03 Assessment and Plan Assessment and plan (1) Embolic cerebrovascular disease: Status: Acute Assessment and plan: Continue apixaban as recommended by [facility] [place]. Obtain an echocardiogram. Await neurology consult in person tomorrow. Could potentiall require a TADEO. (2) Elevated troponin: Status: Acute Assessment and plan: Type 1 vs Type 2 NSTEMI. Await TTE tomorrow. C/s cardiology. Reportedly, cardiology at [facility] had not recommended addition of antiplatelet therapy. (3) COVID-19: Status: Acute Assessment and plan: The patient still tested positive for COVID-19 by PCR. Per , he had originally tested positive >10 days ago. Will obtain serial antigen tests to see if we can discontinue precautions. I Have spent time talking to the patient and his about how COVID-19 could be related to his presentation. (4) Atrial fibrillation: Status: Acute Assessment and plan: Paroxysmal, remains in NSR, on sotolol and metoprolol. Continue anticoagulation with apixaban. (5) Atherosclerosis of [place] coronary artery: Status: Acute Assessment and plan: S/p CABG/Stent, not on antiplatelet therapy. Continue high intensity statin. [facility] cardi[place] recommended against addition of aspirin, per provider report. Await echocardiogram. Obtain an inpatient cardiology consult. (6) DVT prophylaxis: Status: Acute Assessment and plan: Fully anticoagulated with eliquis. (7) Discharge planning issues: Status: Acute Assessment and plan: Full code. Potential discharge home in the next 24-48 hrs, depending on the findings of the echocardiogram. Subjective Subjective Interval history since last seen: Mr Atkinson states he had some white floaters in his vision today, but this has now resolved. Denies headache, dizziness, CP, SOB, n/v, cough, numbness/tingling. states that perhaps his R facial droop is more exaggerated than his normal. The patient states that they noticed it in [facility]. Exam Narrative Exam Narrative: General: Pleasant male with a R facial droop which disappears when he smiles, TOGIAK, no other obvious focal deficits HEENT: EOMI, MMM Heart: RRR, no m/r/g Lungs: CTAB Abdomen: soft, nontender, nondistended Extremities: no edema BLEs Objective Last Vital Signs Temp 36.7 C 04/27/23 15:40 Pulse 59 L 04/27/23 15:40 Resp 16 04/27/23 15:40 BP 114/70 04/27/23 15:40 Pulse Ox 94 04/27/23 15:40 Laboratory Results - last 24 hr 04/27/23 04/27/23 00:30 09:52 Sodium 139 Potassium 4.1 Chloride 104 Carbon Dioxide 27.8 Anion Gap 7.2 BUN 22 H Creatinine 1.1 Est GFR (CKD-EPI 2020) 69.14 Glucose 125 H Calcium 9.1 Magnesium 1.9 Troponin I 402 H* Time Spent with Patient Time Spent with Patient: 35-49 minutes Time was spent: preparing to see the patient(eg.review tests), obtaining and/or reviewing separately otained hiistory, ordering medications,tests, procedures, referring, communicating with other health furnace caretaker, indepentently interpreting results, counseling the patient and care coordination
--- NOTE | 2023-04-28 | DI.CT_ITS ---
Exam(s) CT ABDOMEN PELVIS W EXAM: CT ABDOMEN PELVIS W CLINICAL HISTORY: malignancy workup. TECHNIQUE: Imaging Protocol: Axial computed tomography images with coronal and sagittal reformatted images were created and reviewed CONTRAST MATERIAL: Intravenous: Omnipaque-350 100cc Oral: Oral contrast was also administered for bowel opacification. COMPARISON: CT CT BRAIN NECK CTA from 04/25/2023 FINDINGS: VISUALIZED LUNG BASES: No nodules nor pleural effusions evident. ABDOMEN: There is no ascites. LIVER: Multiple small hypodensities in the liver measuring up to 1.2 cm size . these are probably be nign cysts given their appearance. There are no dilated intrahepatic ducts. GALLBLADDER/BILIARY: No obvious gallbladder pathology. CBD is not dilated. PANCREAS: No evidence of pancreatic mass nor dilatation of the pancreatic duct. SPLEEN: Spleen size is normal. In addition to a few small benign calcified granulomas in the spleen there is also more concerning subcapsular hypodensity posteriorly in the spleen which measures approx imately 2 cm by 3 cm. This does not have the appearance of a simple cyst. ADRENALS: There are no significant adrenal masses. KIDNEYS:There are multiple cysts in both kidneys. The large benign cysts in the left kidney measures 6 cm. Largest on the right side measures 5 cm. There are no solid renal masses but are bilateral r enal calculi. On the left side there is a calculus lodged at the ureteral pelvic junction in the upp er ureter with dilatation of the collecting system above this level and mild perinephric fluid. This left UPJ calculus measures 11 mm craniocaudal by 6 mm wide by 9 mm AP . the left ureter below this l evel does not exhibit additional calculi within the lumen. On the opposite-right side the calculi ar e confined to the kidney without radiopaque calculi evident within the right ureter. There also no c alculi evident in the nondistended urinary bladder.. ABDOMINAL AORTA: Heavily calcified but not enlarged. LYMPH NODES:There are enlarged abnormal appearing lymph nodes adjacent to the left side of the aortic bifurcation. This measures 2 by 1.5 cm. There are also a few enlarged similar appearing lymph node s along the left iliac chain. There is no inguinal adenopathy. ABDOMINAL WALL: No evidence of significant anterior abdominal wall nor inguinal hernia. GI: Oral contrast has reached the rectum. No evidence of small-bowel obstruction. PELVIS: GI: No evidence of appendicitis.There is sigmoid diverticuli but without evidence of acute diverticul itis. LYMPH NODES: Left iliac adenopathy evident. No inguinal adenopathy. REPRODUCTIVE: Prostate size upper normal. Seminal vesicles unremarkable. URINARY BLADDER: Uniform thickening of the urinary bladder wall but may be exaggerated by under diste nsion. Ureterovesical junctions unremarkable. OSSEOUS: No fractures and no significant osseous lesions. IMPRESSION: 1. Main finding is an obstructing 11 by 9 mm calculus the upper left ureter just beyond the UPJ and w ith mild dilatation of the left collecting system above this level. There are multiple calculi also evident in both kidneys. No obstructing calculi in the opposite-right side. There also multiple andria ign cysts in both kidneys measuring up to 6 cm.. There are no solid lesions in either kidney. 2. There are abnormally enlarged lymph nodes adjacent to the left side of the aortic bifurcation and along the left iliac chain within the pelvis. Right-sided enlarged lymph nodes and there is no ingui nal adenopathy. 3. Spleen is not enlarged but contains an abnormal area of subcapsular hypodensity posteriorly measur ing 3 x 2 cm which does not have the appearance of a simple cyst. May represent an hemangioma or mor e concerning pathology. This can be further studied with the contrast infused MRI using hemangioma p rotocol, if clinically indicated. 4. No evidence of pancreatic mass. No adrenal masses. 5. There are multiple hypodensities in the liver measuring up to 12 mm which have the appearance of benign cysts. RADIATION DOSE DELIVERED: 1,074.38mGy.cm Total DLP DATA REPOSITORY: All CT scans at this facility are submitted to the National Radiology Data Registry (NRDR) Dose Index Registry (DIR) with the [employer] (ACR). RADIATION OPTIMIZATION: All CT scans at this facility use at least one of these dose optimization te chniques: automated exposure control; mA and/or kV adjustment per patient size (includes targeted exa ms where dose is matched to clinical indication); or iterative reconstruction.
[2023-04-28 04:05] VITALS: BP 113/66; PULSE 64; RESP 18; TEMP 36.8; O2SAT 92
[2023-04-28 07:13] LABS: Abs Immature Grans 0.02 10^3/uL (0.0-0.06); Absolute Basophil Count 0.03 10^3/uL (0.0-0.2); Absolute Eosinophil Count 0.13 10^3/uL (0.0-0.7); Absolute Lymphocyte Count 1.05 10^3/uL (1.2-3.4); Absolute Neutrophil Count 3.77 10^3/uL (1.2-6.7); Basophils % 0.5; Eosinophils % 2.3; HCT 41.3 % (40.0-50.0); HGB 13.6 g/dL (13.5-17.5); Immature Grans % 0.4; Lymphocytes % 18.4; MCHC 32.9 % (32.0-36.0); MCV 91 fL (80-95); MPV 10.8 fL (8.0-11.0); Monocytes % 12.3; Neutrophils % 66.1; Platelet Count 152 10^3/uL (130-400); RBC 4.54 10^6/uL (4.36-5.78); RDW 13.7 % (11.8-14.1); RDW-SD 46.3 fL
[2023-04-28 07:39] LABS: Hemoglobin A1C 6.1 % (<5.7)
[2023-04-28 07:42] LABS: Anion Gap 7.2 mmol/L (3-11); BUN 21 mg/dL (7-18); CO2 26.8 mmol/L (21.0-32.0); Calcium 9.1 mg/dL (8.5-10.1); Calculated LDL 107 mg/dL (<100); Chloride 105 mmol/L (98-107); Cholesterol 173 mg/dL (<200); Estimated GFR 77.52 (mL/min/1.73m2); Glucose 110 mg/dL (74-106); HDL Cholesterol 42 mg/dL (40-60); Magnesium 1.8 mg/dL (1.8-2.4); Sodium 139 mmol/L (136-145); Triglyceride 123 mg/dL (<150)
[2023-04-28 08:38] VITALS: BP 135/70; PULSE 62; RESP 18; TEMP 36.4; O2SAT 97
[2023-04-28 08:38] LABS: Lab Add On Test DONE
[2023-04-28] MEDS: Atorvastatin 40 MG TAB PO (08:41)
[2023-04-28] MEDS: Omeprazole 20 MG CAPCR 40 MG PO (08:41)
[2023-04-28] MEDS: Metoprolol CR 25 MG TABCR PO (08:41)
[2023-04-28] MEDS: Apixaban 5 MG TAB PO (08:41)
[2023-04-28] MEDS: amLODIPine 5 MG TAB PO (08:41)
[2023-04-28] MEDS: Isosorbide Mononitrate 60 MG TABCR PO (08:41)
[2023-04-28 09:03] LABS: Procalcitonin < 0.1 ng/mL
--- NOTE | 2023-04-28 09:33 | DI.US_ITS ---
APPROVED REPORT EXAM: Comprehensive 2D, Doppler, and color-flow Echocardiogram Other Information Study Quality: Adequate. Technically limited study due to body habitus. Conclusion The left ventricular wall thickness and chamber size. Ejection fraction is 60 to 65%. Wall motion i s normal Normal right ventricular size and systolic function Left atrium is moderately enlarged. Right atrial size is normal Aortic valve is trileaflet and sclerotic with mild regurgitation Mildly thickened mitral leaflets. Moderate mitral regurgitation Dilated ascending aorta measuring 4.16 cm Wall motion Left Ventricle The left ventricle is normal size. The left ventricular systolic function is normal. The left ventric ular ejection fraction is within the normal range. There is normal left ventricular wall thickness. T here is normal LV segmental wall motion. There is no ventricular septal defect visualized. LVEF is 60 -65%. Right Ventricle The right ventricle is normal size. Right ventricular systolic function is grossly normal. Atria Left atrium is moderately dilated. The right atrium size is normal. Aortic Valve The Aortic valve is sclerotic. Aortic valve is trileaflet. There is no aortic valvular stenosis. Mild aortic regurgitation. Mitral Valve Mitral valve leaflets are mildly thickened. No evidence of mitral valve stenosis. Moderate mitral reg urgitation. Tricuspid Valve The tricuspid valve is normal in structure. There is no tricuspid valve stenosis. Mild tricuspid regu rgitation. Pulmonic Valve The pulmonary valve is normal in structure. There is no pulmonic valvular stenosis. There is no pulmo izabel valvular regurgitation. Great Vessels The aortic root is normal in size. The ascending aorta is moderately dilated. IVC is normal in size a nd collapses >50% with inspiration. Pericardium There is no pericardial effusion. 2D Dimensions IVSD d PLAX 0.72 cm M: 0.6-1.2 Ao Root d 3.57 cm M: 3.1 - 3.7 LVPW d PLAX 0.68 cm M: 0.6 - 1.2 Ao Asc Diam d 4.16 cm M: 2.6 - 3.4 LVID d PLAX 5.38 cm M: 4.2 - 5.8 LVDs 3.52 cm M: 2.5 - 4.0 LV EF Teichholz 63.1 % FS 34.50 % LV EDV (Teich) 140.0 mL LV ESV (Teich) 51.7 mL Stroke Vol Index (Teich) 40.52 M-Mode TAPSE 1.85 cm (M/F) >1.7 Auto EF LV EDV A4C 110.0 mL LV EDV A2C 148.4 mL LV EDV BP 126.8 mL LV ESV A4C 38.5 mL LV ESV A2C 57.9 mL LV ESV BP 47.7 mL LVEF(%) A4C 65.0 % LVEF(%) A2C 61.0 % LVEF(%) BP 62.4 % LV SV A4C 71.5 ml LV SV A2C 90.5 ml LV SV BP 79.1 ml LV CO A4C 4.3 L/min LV CO A2C 5.1 L/min LV CO BP 4.7 L/min HR A4C 59.90 BPM HR A2C 56.61 BPM LV EDV Index (BP) LA Volume LA Length A4C 6.3 cm LA Length A2C LA Area A4C s 21.40 cm2 LA Area A2C s LA Vol A4C A-L 61.62 mL LA Vol A2C A-L LA Vol Biplane A-L LA Vol A4C MOD 58.8 mL LA Vol A2C MOD LA Vol BP MOD RA Volume RA Area A4C 13.1 cm2 RA ESV A4C (A-L) 26.9mL RA Vol/BSA A4C A-L RA Length A4C 5.4 cm RA ESV A4C (MOD) 26.4mL LV Diastology MV E' medial 0.074 (>0.07 m/s) MV E Vmax 0.49 (0.4-1.3 m/s) MV E/E' MED 6.55 (<14) MV A Vmax 0.45 (0.4-1.3 m/s) MV E' lateral 0.067 (>0.1 m/s) E/A Ratio 1.1 MV E/E' LAT 7.27 (<14) MV E' Average 0.070 m/s MV E/E'(average) 6.89 Aortic Valve AoV Vmax 0.71 m/s LVOT Vmax 0.76 m/s AoV Peak Grad 2.0 mmHg LVOT Peak Grad 2.3 mmHg AoV Area (Vmax) 4.92 cm2 LVOT VTI 0.190 m AoV VTI 0.198 m LVOT Mean Grad 1.4 mmHg AoV Mean Ovi. 0.49 m/s LVOT SV 86.51 mL AoV Mean Grad 1.1 mmHg LVOT Diam s 2.40 cm AoV Area (VTI) 4.36 cm2 Velocity Ratio 1.07 Mitral Valve MV DT 308 (160-240 msec) Pulmonary Valve PV Vmax 0.96 (0.5-1.5 m/s) RVOT Vmax 0.39 m/s PV Peak Grad 3.7 mmHg RVOT Peak Gr. 0.6 mmHg PV Mean Ovi 0.58 m/s RVOT VTI 0.075 m PV Mean Grad 1.6 mmHg RVOT Mean Gr. 0.4 mmHg Tricuspid Valve RA Pressure 3.00 mmHg
--- NOTE | 2023-04-28 11:15 | RT.EKG_ITS ---
APPROVED REPORT Exam: Resting ECG Reason for Exam: ?QT prolongation Patient Location: I HR:57 bpm ECG Measurements Heart Rate 57 AXIS [place] 155 P 5 QRSd 107 QRS -22 QT 494 T -5 QTc 481 Conclusion Sinus rhythm...normal P axis, V-rate 50- 99 Borderline left axis deviation...QRS axis (-15,-29) Abnormal R-wave progression, early transition...QRS area>0 in V2 Borderline T wave abnormalities...T/QRS ratio < 1/20 or flat T Borderline prolonged QT interval...QTc >475mS
[2023-04-28] MEDS: Breeza Beverage 473 ML BTL PO (11:23)
[2023-04-28] MEDS: Omnipaque 350 MG/ML 50 ML BTL PO (11:24)
[2023-04-28 12:23] VITALS: BP 103/63; PULSE 57; RESP 18; TEMP 36.4; O2SAT 96
--- NOTE | 2023-04-28 12:32 | W.CARDCONSUL ---
Date of service: 04/28/23 Time of Service: 12:32 Assessment and Plan Assessment and plan (1) Embolic cerebrovascular disease: Status: Acute Assessment and plan: Patient has been found to have evidence of multiple embolic strokes. He is currently anticoagulated with Eliquis. His echocardiogram does not show an obvious source of emboli but given his history of paroxysmal atrial fibrillation that could certainly be responsible (2) Elevated troponin: Status: Acute Assessment and plan: I suspect this is likely very mild demand ischemia given that he has significant CAD and is not completely revascularized. He has no symptoms of angina, no EKG changes, no change in his left ventricular function. Overall I would not pursue an ischemic evaluation currently. He follows at [facility] for his cardiology and they can address whether or not to do additional testing (3) Atherosclerosis of [place] coronary artery: Status: Acute History of Present Illness History of Present Illness Chief Complaint: Dizziness Narrative: This 77-year-old man presented to the hospital several days ago with dizziness. He was found to have evidence of multiple cerebral emboli. He has a history of paroxysmal atrial fibrillation for which she has been maintained on sotalol as well as anticoagulation with Eliquis. When he presented to the hospital troponins were drawn. He had no symptoms of chest pain, no EKG changes. He recently had an updated echocardiogram which shows preserved left ventricular systolic function with an ejection fraction of 65%. Patient has a longstanding cardiac history. He had bypass surgery remotely. He has had follow-up cardiac testing. A mildly abnormal myocardial perfusion imaging study in 2020 prompted another cardiac catheterization. At that time his MARTELL to the LAD was patent. The saphenous vein graft to the OM 2 was not functional. A saphenous vein graft to the RPDA was still open. Attempts to perform percutaneous intervention to the second obtuse marginal were not successful. He has been treated with antianginal therapy. The patient was not interviewed or examined today as he is positive for COVID and is on precautions PFSH All Active Problems (Updated 04/26/23 @ 01:23 by Jhonny Robles) Discharge planning issues (Acute) DVT prophylaxis (Acute) Dizziness (Acute) Elevated troponin (Acute) Embolic cerebrovascular disease (Acute) COVID-19 (Acute) 04/14/23 Hyperglycemia (Acute) [id number] BPH associated with nocturia (Acute) Actinic keratosis (Acute) Gastroesophageal reflux disease without esophagitis (Acute) Dysphonia (Acute) Tubular adenoma (Acute) , ? 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 2017 had three stents placed. 2 [place]'s 1996 & 1989 F/U with Dr. Barraza in [place] 07/15 History of coronary artery bypass surgery History of lithotripsy LITHOTRIPSY Status post appendectomy Family History Mother , AGE 92 No problems noted. Father , AGE 72 No problems noted. Brother , AGE 72 No problems noted. Brother No problems noted. Son No problems noted. Daughter No problems noted. Social History Smoking/Tobacco Use Status: Former Tobacco Use tobacco type: cigarettes Quit Date: 07/28/95 Tobacco: How many years used: 20 Second Hand Exposure: Yes Smoking risk assessment performed?: Yes Alcohol Intake: current Alcohol Intake frequency: a few times a week Alcohol type: hard liquor Drug use: Never Substance use type: does not use Caregiver/Support person: No Household members: spouse Housing: house Communication Needs: Hard of Hearing Do you need help understanding health information?: Rarely Pets and animals: No Sexually active: No Do you think of yourself as: straight/heterosexual Current gender identity: male What is your relationship status?: How often do you talk on the phone with friends or family?: three or more times per week How often do you get together with friends or relatives?: twice per week Do you belong to any clubs or organized social groups?: no Panel score (0-1 are the most socially isolated patients): 2 What type of physical activity do you participate in: walking and bicycling Duration: 30-45 minutes/day Frequency: 3-4 times per week Ruth/Anglican: Restorationism Special ruth needs: No Do you feel safe at home: Yes Do you feel safe in your relationship?: Yes Exam Narrative Exam Narrative: Patient was not interviewed or examined Results Last Vital Signs Temp 36.4 C L 04/28/23 12:23 Pulse 57 L 04/28/23 12:23 Resp 18 04/28/23 12:23 BP 103/63 04/28/23 12:23 Pulse Ox 96 04/28/23 12:23 Labs 04/28/23 06:55 04/28/23 06:55 Labs: Laboratory Results - last 24 hr 04/28/23 04/28/23 04/28/23 06:55 06:55 06:55 WBC 5.70 RBC 4.54 Hgb 13.6 Hct 41.3 MCV 91 MCH 30.0 MCHC 32.9 RDW 13.7 Plt Count 152 MPV 10.8 Immature Gran % 0.4 Neutrophils % 66.1 Lymphocytes % 18.4 Monocytes % 12.3 Eosinophils % 2.3 Basophils % 0.5 Nucleated RBC % 0.0 Absolute Neutrophils 3.77 Absolute Lymphocytes 1.05 L Absolute Monocytes 0.70 Absolute Eosinophils 0.13 Absolute Basophils 0.03 Sodium 139 Potassium 4.0 Chloride 105 Carbon Dioxide 26.8 Anion Gap 7.2 BUN 21 H Creatinine 1.0 Est GFR (CKD-EPI 2020) 77.52 Glucose 110 H Hemoglobin A1c 6.1 H Calcium 9.1 Magnesium 1.8 Triglycerides 123 Total Cholesterol 173 LDL Cholesterol, Calc 107 H HDL Cholesterol 42 Procalcitonin Add-On Test Request 04/28/23 04/28/23 06:55 Unknown WBC RBC Hgb Hct MCV MCH MCHC RDW Plt Count MPV Immature Gran % Neutrophils % Lymphocytes % Monocytes % Eosinophils % Basophils % Nucleated RBC % Absolute Neutrophils Absolute Lymphocytes Absolute Monocytes Absolute Eosinophils Absolute Basophils Sodium Potassium Chloride Carbon Dioxide Anion Gap BUN Creatinine Est GFR (CKD-EPI 2020) Glucose Hemoglobin A1c Calcium Magnesium Triglycerides Total Cholesterol LDL Cholesterol, Calc HDL Cholesterol Procalcitonin < 0.1 Add-On Test Request DONE
--- NOTE | 2023-04-28 13:08 | W.NEUROCONSU ---
Date of service: 04/28/23 Time of Service: 13:08 Assessment and Plan Assessment and plan (1) Embolic cerebrovascular disease: Status: Acute (2) Embolic stroke: Status: Acute (3) Atrial fibrillation: Status: Acute Assessment and plan: Mr. Atkinson was admitted with 2 days of spells of lightheadedness and weakness, found to have a shower of acute ischemia throughout the bilateral cerebral hemispheres and including the R thalamus and R occipital lobe (3 different vascular territories) concerning for embolic phenomena vs hypercoagulable state. 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 He has known atrial fibrillation as well. Currently COVID + since 04/15/23 which could contribute to a hypercoaguability. . Thus, etiology of stroke must be either due to failure of apixaban (hypercoaguable/afib) vs atherotic emobli off the aortic arch. Thus, recommendations as below. Of note, he leaves for [place] next week where he will spend the next 6 weeks. 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 Work-up: -TADEO to look for intracardiac clot, PFO, and/or aortic atheroma - locally [facility] tends to do these as an outpatient and given COVID status it is unlikely they will transfer him for this procedure (they haven't transferred a patient for this in the past). Since he is leaving the [facility], I will send a referral to have this done in [place]. This test will help determine need for ASA on top of anticoagulation. -Discussed whether we should pursue hypercoag work-up now, but given recent COVID 19 which may affect results, will defer testing as per Heme/Vascular as an outpatient -cancer screening - he had a CT chest last month; would get CT A/P given hypercoag concerns; discussed updated colo (last done in 2019), PET, etc pending and as rec'd by primary team and CT results Medications: -aspirin 81mg daily for secondary stroke prevention; ADRs discussed -switch apixaban to dabigatran 150mg BID given ?failure of apixaban - however it likely is working given LUE swelling resolved with initiation..... ADRs discussed -atrovastatin 40mg daily for secondary stroke prevention, goal LDL <70 Other: -Ok to start slowly lowering BP to goal 120-140 systolic -he will need outpatient testing above as well as f/up with neurology and hematology - I will arrange all of these referrals to be done in [place] if he still intends to travel. Will arrange here if he stays. History of Present Illness History of Present Illness Chief Complaint: stroke Narrative: Handedness: right. HPI: Mr. Atkinson is a 77 year-old with hyperlipidemia, CAD s/p stents and CABG, atrial fibrillation, anxiety, and SCC of the lip. On 03/18/23, he was diagnosed with PE and LUE DVT. Started on apixaban 5mg BID with resolution of LUE swelling/pain. He stopped his ASA 81mg daily when he started DOAC. He was COVID+ on 04/15/23 - now asymptomatic. Mr. Atkinson's was at bedside for his visit today. They winter in [place] for 6 months every year and were planning to travel there tomorrow. Mr. Atkinson presented to the ER on 04/25/23 with 3 spells in the preceding 1-2 days manifested by transient lightheadedness and generalized weakness, lasting ~5minutes each. One episode was associated with tingling in his hands. He underwent the work-up as below. He is already on atorvastatin 40mg daily. Note troponin elevation. Cardiology left a note today with thoughts that this was due to demand ischemia due to residual CAD that is not amenable to further intervention. He is planning an ablation in [place] for rate control - reduce rate medications. Work-up: -Troponin 504 - 197 - 305 - 464 - 402 -THS 1.75 -CTH (04/25/23): No acute findings. I reviewed these images personally and this is my personal interpretation. -CTA head/neck (04/25/23): plaque bilateral in the bilateral common carotids without significant stenosis. I reviewed these images personally and this is my personal interpretation. -MRI heather w/o (04/25/23): small scattered bilateral cortical emboli including in the R occipital lobe and R thalamus. Mild chronic vascular changes. I reviewed these images personally and this is my personal interpretation. -TTE (04/28/23): EF 60-65%, no wall motion abnormalities. LA moderate dilated. Bubble not done. -LDL 107, A1c 6.1 In [place], gets medical care at [facility]. PCP: Dr. Tiffany Mcdonald [phone] Review of Systems All systems reviewed & are unremarkable except as noted in HPI and below PFSH All Active Problems (Updated 04/28/23 @ 16:45 by Destinee Canela MD) Splenic lesion (Acute) Pelvic lymphadenopathy (Acute) Urinary tract obstruction by kidney stone (Acute) Embolic stroke (Acute) Discharge planning issues (Acute) DVT prophylaxis (Acute) Dizziness (Acute) Elevated troponin (Acute) Embolic cerebrovascular disease (Acute) COVID-19 (Acute) 04/14/23 Hyperglycemia (Acute) [id number] BPH associated with nocturia (Acute) Actinic keratosis (Acute) Gastroesophageal reflux disease without esophagitis (Acute) Dysphonia (Acute) Tubular adenoma (Acute) , ? 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 2017 had three stents placed. 2 ME's 1996 & 1989 F/U with Dr. Barraza in [place] 07/15 History of coronary artery bypass surgery History of lithotripsy LITHOTRIPSY Status post appendectomy Family History Mother , AGE 92 No problems noted. Father , AGE 72 No problems noted. Brother , AGE 72 No problems noted. Brother No problems noted. Son No problems noted. Daughter No problems noted. Social History Smoking/Tobacco Use Status: Former Tobacco Use tobacco type: cigarettes Quit Date: 07/28/95 Tobacco: How many years used: 20 Second Hand Exposure: Yes Smoking risk assessment performed?: Yes Alcohol Intake: current Alcohol Intake frequency: a few times a week Alcohol type: hard liquor Drug use: Never Substance use type: does not use Caregiver/Support person: No Household members: spouse Housing: house Communication Needs: Hard of Hearing Do you need help understanding health information?: Rarely Pets and animals: No Sexually active: No Do you think of yourself as: straight/heterosexual Current gender identity: male What is your relationship status?: How often do you talk on the phone with friends or family?: three or more times per week How often do you get together with friends or relatives?: twice per week Do you belong to any clubs or organized social groups?: no Panel score (0-1 are the most socially isolated patients): 2 What type of physical activity do you participate in: walking and bicycling Duration: 30-45 minutes/day Frequency: 3-4 times per week Ruth/Caodaism: Scientologist Special ruth needs: No Do you feel safe at home: Yes Do you feel safe in your relationship?: Yes Visit Medication and Allergies Active Medications Generic Name Dose Route Start Last Admin Trade Name Freq PRN Reason Stop Dose Admin Acetaminophen 0 mg 04/25/23 23:30 Acetaminophen 325 Mg Tab PO Q4H PRN PRN Amlodipine Besylate 5 mg 04/26/23 08:30 04/28/23 08:41 Amlodipine 5 Mg Tab PO 5 mg DAILY RADHA Administration Apixaban 5 mg 04/26/23 08:30 04/28/23 08:41 Apixaban 5 Mg Tab PO 5 mg BID RADHA Administration Atorvastatin Calcium 40 mg 04/26/23 08:30 04/28/23 08:41 Atorvastatin 40 Mg Tab PO 40 mg DAILY RADHA Administration Iohexol 50 ml 04/28/23 12:00 04/28/23 11:24 Omnipaque 350 Mg/Ml 50 Ml Btl PO 05/28/23 23:59 50 ml DIRECTED RADHA Administration Isosorbide Mononitrate 60 mg 04/26/23 08:30 04/28/23 08:41 Isosorbide Mononitrate 60 Mg Tabcr PO 60 mg DAILY RADHA Administration Lorazepam 1 mg 04/26/23 01:08 Lorazepam 1 Mg Tab PO Q24H PRN anxiety Metoprolol Succinate 25 mg 04/26/23 08:30 04/28/23 08:41 Metoprolol Cr 25 Mg Tabcr PO 25 mg DAILY RADHA Administration Miscellaneous Medication 473 ml 04/28/23 11:30 04/28/23 11:23 Breeza Beverage 473 Ml Btl PO 05/28/23 23:59 946 ml DIRECTED RADHA Administration Omeprazole 40 mg 04/26/23 07:30 04/28/23 08:41 Omeprazole 20 Mg Capcr PO 40 mg DAILY@0730 RADHA Administration Polyethylene Glycol 17 gm 04/26/23 16:53 04/27/23 08:04 Polyethylene Glycol 3350 17 Gm Packet PO 17 gm BID PRN PRN Administration Sodium Chloride 0 ml 04/25/23 17:10 04/27/23 13:41 Normal Saline Flush 10 Ml Syr IVP 10 ml PRN PRN Administration Sotalol HCl 160 mg 04/26/23 08:30 04/28/23 08:41 Sotalol 80 Mg Tab PO 160 mg BID RADHA Administration Allergies No Known Allergies Allergy (Verified 04/25/23 10:32) Exam Narrative Exam Narrative: Physical Exam: Limited exam as he is still on contact precautions Gen: Patient of apparent stated age, NAD Head and face: no facial or cranial abnormalities Neck: Supple, no meningismus, no occipital tenderness CV: + S1, S2, RRR, no murmur Resp: CTA B/L Abd: soft, nontender, nondistended Ext: No edema. No clubbing or cyanosis. No bony deformity. Neuro Exam: Language: fluency, naming, repetition, and comprehension intact; Mental Status: AAOx3, current events intact, fund of knowledge intact; Speech: no dysarthria Cranial nerves: Funduscopy: not performed CN II: visual hemphill intact CN III, IV, : extraocular movements intact, no nystagmus, pupils symmetric and reactive to light CN V: face sensation intact to LT CN VII: no facial asymmetry noted CN VIII: hearing intact bilaterally CN IX, X: palate rises symmetrically CN XI: trapezius/SCM 5/5 bilaterally CN XII: protrudes tongue symmetrically Sensory: intact to LT in all extremities Motor: bulk and tone intact. Fine motor movements intact bilaterally. No pronator drift. Strength 5/5 throughout including the deltoids, biceps, triceps, wrist extensors, hip flexors, knee flexors, knee extensors, ankle flexors, and ankle extensors. Reflexes: hyporeflexic throughout; toes down going bilaterally; Coordination: FTN and HTS intact bilaterally Gait: normal gait Results Last Vital Signs Temp 97.5 F L 04/28/23 12:23 Pulse 57 L 04/28/23 12:23 Resp 18 04/28/23 12:23 BP 103/63 04/28/23 12:23 Pulse Ox 96 04/28/23 12:23 Labs 04/28/23 06:55 04/28/23 06:55 Labs: Laboratory Results - last 24 hr 04/28/23 04/28/23 04/28/23 06:55 06:55 06:55 WBC 5.70 RBC 4.54 Hgb 13.6 Hct 41.3 MCV 91 MCH 30.0 MCHC 32.9 RDW 13.7 Plt Count 152 MPV 10.8 Immature Gran % 0.4 Neutrophils % 66.1 Lymphocytes % 18.4 Monocytes % 12.3 Eosinophils % 2.3 Basophils % 0.5 Nucleated RBC % 0.0 Absolute Neutrophils 3.77 Absolute Lymphocytes 1.05 L Absolute Monocytes 0.70 Absolute Eosinophils 0.13 Absolute Basophils 0.03 Sodium 139 Potassium 4.0 Chloride 105 Carbon Dioxide 26.8 Anion Gap 7.2 BUN 21 H Creatinine 1.0 Est GFR (CKD-EPI 2020) 77.52 Glucose 110 H Hemoglobin A1c 6.1 H Calcium 9.1 Magnesium 1.8 Triglycerides 123 Total Cholesterol 173 LDL Cholesterol, Calc 107 H HDL Cholesterol 42 Procalcitonin Add-On Test Request 04/28/23 04/28/23 06:55 Unknown WBC RBC Hgb Hct MCV MCH MCHC RDW Plt Count MPV Immature Gran % Neutrophils % Lymphocytes % Monocytes % Eosinophils % Basophils % Nucleated RBC % Absolute Neutrophils Absolute Lymphocytes Absolute Monocytes Absolute Eosinophils Absolute Basophils Sodium Potassium Chloride Carbon Dioxide Anion Gap BUN Creatinine Est GFR (CKD-EPI 2020) Glucose Hemoglobin A1c Calcium Magnesium Triglycerides Total Cholesterol LDL Cholesterol, Calc HDL Cholesterol Procalcitonin < 0.1 Add-On Test Request DONE
[2023-04-28] MEDS: Omnipaque 350 MG/ML 100 ML BTL 85 ML IJ (13:28)
[2023-04-28] MEDS: Normal Saline - Diluent 50 ML VIAL IJ (13:28)
[2023-04-28] MEDS: Aspirin E.C. 81 MG TABEC PO (14:33)
--- NOTE | 2023-04-28 16:29 | PDOC.CMPRO ---
Date of service: 04/28/23 Time of Service: 16:29 Care Management Progress Note Progress Note Text Progress Note Text: S/O: Francisco continues to require close monitoring and further medical work up. Eliquis was switched to Pradaxa today. Cardiology and neurology consults are ordered. He is now on covid precautions after testing positive for Covid. CM will follow. A: 77 year old male admitted to [facility] on 04/25/23 Embolic stroke, Afib P: Anticipate Francisco will discharge home via private vehicle with family when medically ready per provider. He will follow up with community providers? and his discharge plan of care as instructed. No [facility] services are indicated at this time. CM will continue to follow.
--- NOTE | 2023-04-28 16:37 | PGE_ITS ---
Date of Service Date of service: 04/28/23 Time of Service: 16:38 Assessment and Plan Assessment and plan (1) Embolic cerebrovascular disease: Status: Acute Assessment and plan: Discussed with Dr Flannery. We are switching to aspirin + pradaxa. Will need a TADEO as outpatient. Continue tele. Needs malignancy workup as outpatient as does have lymphadenopathy on CT. Will need hypercoagulable workup as outpatient - heme/onc referral. (2) Elevated troponin: Status: Acute Assessment and plan: Type 1 vs Type 2 NSTEMI. TTE w/ preserved wall motion and LVEF. Cardiology recommended outpatient follow up. I agree with Dr Flannery's recommendation to add aspirin. (3) COVID-19: Status: Acute Assessment and plan: The patient still tested positive for COVID-19 by PCR. Per , he had originally tested positive >10 days ago. Antigen test today was negative. Will repeat tomorrow. If negative, will d/c precautions. (4) Atrial fibrillation: Status: Acute Assessment and plan: Change apixaban to pradaxa. in SR currently. (5) Atherosclerosis of [place] coronary artery: Status: Acute Assessment and plan: S/p CABG/Stent, not on antiplatelet therapy. Continue high intensity statin. Asa added to regimen per neurology recommendations. (6) Urinary tract obstruction by kidney stone: Status: Acute Assessment and plan: On the left. C/s urology. Will obtain a UA. (7) Pelvic lymphadenopathy: Status: Acute Assessment and plan: Outpatient referral to heme/onc. (8) Splenic lesion: Status: Acute Assessment and plan: As above (9) Discharge planning issues: Status: Acute Assessment and plan: Full code. Potential discharge home tomorrow. The patient is deciding where he would like to set up follow up - back home in [place] or locally. (10) DVT prophylaxis: Status: Acute Assessment and plan: Fully anticoagulated; switching eliquis to pradaxa. Subjective Subjective Interval history since last seen: Mr Atkinson is feeling well today. No dizziness, CP, SOB, n/v. HE does report some left flank pain last night. He knows about his numerous kidney stones. I informed him of his CT read, including the obstructing stone and that I had consulted urology. Discussed case with Dr Flannery. Given evidence of multiple territory infarcts, she had recommended ruling out malignancy, which is why CT abdomen/pelvis was obtained. She recommends substitution of apixaban with pradaxa, since the patient had the strokes while on apixaban. She also recommended addition of aspirin. Finally, the patient will need a hematology/oncology workup given lymphadenopathy and splenic findings on CT. and Mrs Atkinson were both present for the conversation and had not yet decided whether they are returning to [place] or staying here. Exam Narrative Exam Narrative: General: Pleasant male with a R facial droop which disappears when he smiles, [place], no other obvious focal deficits HEENT: EOMI, MMM Heart: RRR, no m/r/g Lungs: CTAB Abdomen: soft, nontender, nondistended Extremities: no edema BLEs Objective Last Vital Signs Temp 36.4 C L 04/28/23 12:23 Pulse 57 L 04/28/23 12:23 Resp 18 04/28/23 12:23 BP 103/63 04/28/23 12:23 Pulse Ox 96 04/28/23 12:23 Laboratory Results - last 24 hr 04/28/23 04/28/23 04/28/23 06:55 06:55 06:55 WBC 5.70 RBC 4.54 Hgb 13.6 Hct 41.3 MCV 91 MCH 30.0 MCHC 32.9 RDW 13.7 Plt Count 152 MPV 10.8 Immature Gran % 0.4 Neutrophils % 66.1 Lymphocytes % 18.4 Monocytes % 12.3 Eosinophils % 2.3 Basophils % 0.5 Nucleated RBC % 0.0 Absolute Neutrophils 3.77 Absolute Lymphocytes 1.05 L Absolute Monocytes 0.70 Absolute Eosinophils 0.13 Absolute Basophils 0.03 Sodium 139 Potassium 4.0 Chloride 105 Carbon Dioxide 26.8 Anion Gap 7.2 BUN 21 H Creatinine 1.0 Est GFR (CKD-EPI 2020) 77.52 Glucose 110 H Hemoglobin A1c 6.1 H Calcium 9.1 Magnesium 1.8 Triglycerides 123 Total Cholesterol 173 LDL Cholesterol, Calc 107 H HDL Cholesterol 42 Procalcitonin Add-On Test Request 04/28/23 04/28/23 06:55 Unknown WBC RBC Hgb Hct MCV MCH MCHC RDW Plt Count MPV Immature Gran % Neutrophils % Lymphocytes % Monocytes % Eosinophils % Basophils % Nucleated RBC % Absolute Neutrophils Absolute Lymphocytes Absolute Monocytes Absolute Eosinophils Absolute Basophils Sodium Potassium Chloride Carbon Dioxide Anion Gap BUN Creatinine Est GFR (CKD-EPI 2020) Glucose Hemoglobin A1c Calcium Magnesium Triglycerides Total Cholesterol LDL Cholesterol, Calc HDL Cholesterol Procalcitonin < 0.1 Add-On Test Request DONE Objective Narrative Objective Narrative: CT abdomen/pelvis: 1. Main finding is an obstructing 11 by 9 mm calculus the upper left ureter just beyond the UPJ and with mild dilatation of the left collecting system above this level.? There are multiple calculi also evident in both kidneys.? No obstructing calculi in the opposite-right side.? There also multiple benign cysts in both kidneys measuring up to 6 cm..? There are no solid lesions in either kidney. 2. There are abnormally enlarged lymph nodes adjacent to the left side of the aortic bifurcation and along the left iliac chain within the pelvis.? Right- sided enlarged lymph nodes and there is no inguinal adenopathy. 3. Spleen is not enlarged but contains an abnormal area of subcapsular hypodensity posteriorly measuring 3 x 2 cm which does not have the appearance of a simple cyst.? May represent an hemangioma or more concerning pathology.? This can be further studied with the contrast infused MRI using hemangioma protocol, if clinically indicated. 4. No evidence of pancreatic mass.? No adrenal masses. 5.? There are multiple hypodensities in the liver measuring up to 12 mm which have the appearance of benign cysts. Echo: The left ventricular wall thickness and chamber size.? Ejection fraction is 60 to 65%.? Wall motion is normal Normal right ventricular size and systolic function Left atrium is moderately enlarged.? Right atrial size is normal Aortic valve is trileaflet and sclerotic with mild regurgitation Mildly thickened mitral leaflets.? Moderate mitral regurgitation Dilated ascending aorta measuring 4.16 cm Time Spent with Patient Time Spent with Patient: 35-49 minutes Time was spent: preparing to see the patient(eg.review tests), obtaining and/or reviewing separately otained hiistory, ordering medications,tests, procedures, referring, communicating with other health healthcare applications analyst, indepentently interpreting results, counseling the patient and care coordination
[2023-04-28 21:09] VITALS: BP 106/58; PULSE 62; RESP 18; TEMP 37.1; O2SAT 94
[2023-04-28 22:44] LABS: Bilirubin Negative (Negative); Blood Large (Negative); Clarity Clear (Clear); Glucose Negative (Negative); Ketones Negative (Negative); Leukocyte Esterase Negative (Negative); Nitrite Negative (Negative); Specific Gravity 1.015 (1.005-1.025)
[2023-04-28 23:26] LABS: Bacteria Negative HPF (Negative); C & S Indicated? No; Crystals Negative HPF (Negative); Epithelial Cells Rare HPF (Negative); Mucus Negative (Negative); RBC >50 HPF (0-2); WBC Negative HPF (0-5)
[2023-04-29 00:09] VITALS: BP 110/60; PULSE 66; RESP 17; TEMP 37.3; O2SAT 95
[2023-04-29 03:55] VITALS: BP 115/62; PULSE 63; RESP 16; TEMP 36.4; O2SAT 94
[2023-04-29 06:44] LABS: Abs Immature Grans 0.01 10^3/uL (0.0-0.06); Absolute Basophil Count 0.03 10^3/uL (0.0-0.2); Absolute Eosinophil Count 0.12 10^3/uL (0.0-0.7); Absolute Lymphocyte Count 1.11 10^3/uL (1.2-3.4); Absolute Monocyte Count 0.77 10^3/uL (0.1-0.8); Absolute Neutrophil Count 4.36 10^3/uL (1.2-6.7); Basophils % 0.5; Eosinophils % 1.9; HCT 40.1 % (40.0-50.0); HGB 13.2 g/dL (13.5-17.5); Immature Grans % 0.2; Lymphocytes % 17.3; MCH 29.7 pg (27.0-33.0); MCHC 32.9 % (32.0-36.0); MCV 90 fL (80-95); MPV 11.4 fL (8.0-11.0); Neutrophils % 68.1; Platelet Count 144 10^3/uL (130-400); RBC 4.44 10^6/uL (4.36-5.78); RDW 13.6 % (11.8-14.1); RDW-SD 45.3 fL
[2023-04-29 06:58] LABS: Anion Gap 8.1 mmol/L (3-11); BUN 25 mg/dL (7-18); CO2 27.9 mmol/L (21.0-32.0); Calcium 8.7 mg/dL (8.5-10.1); Chloride 102 mmol/L (98-107); Estimated GFR 77.52 (mL/min/1.73m2); Glucose 97 mg/dL (74-106); Potassium 3.9 mmol/L (3.5-5.1); Sodium 138 mmol/L (136-145)
[2023-04-29 07:45] VITALS: BP 108/63; PULSE 60; RESP 18; TEMP 36.2; O2SAT 94
[2023-04-29] MEDS: amLODIPine 5 MG TAB PO (08:11)
[2023-04-29] MEDS: Atorvastatin 40 MG TAB PO (08:11)
[2023-04-29] MEDS: Metoprolol CR 25 MG TABCR PO (08:11)
[2023-04-29] MEDS: Aspirin E.C. 81 MG TABEC PO (08:12)
[2023-04-29] MEDS: Omeprazole 20 MG CAPCR 40 MG PO (08:12)
[2023-04-29] MEDS: Isosorbide Mononitrate 60 MG TABCR PO (08:12)
[2023-04-29 11:00] VITALS: BP 121/68; PULSE 63; RESP 18; TEMP 36.7; O2SAT 94
[2023-04-29 15:22] VITALS: BP 109/58; PULSE 62; RESP 16; TEMP 36.6; O2SAT 91
--- NOTE | 2023-04-29 16:41 | W.PM.PROGNOT ---
Date of Service Date of service: 04/29/23 Time of Service: 16:41 Assessment and Plan Assessment and plan (1) Embolic cerebrovascular disease: Status: Acute (2) Embolic stroke: Status: Acute (3) Atrial fibrillation: Status: Acute Assessment and plan: Mr. Atkinson was admitted with 2 days of spells of lightheadedness and weakness, found to have a shower of acute ischemia throughout the bilateral cerebral hemispheres and including the R thalamus and R occipital lobe (3 different vascular territories) concerning for embolic phenomena vs hypercoagulable state. 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 He has known atrial fibrillation as well. Currently COVID + since 04/15/23 which could contribute to a hypercoaguability. . Thus, etiology of stroke must be either due to failure of apixaban (hypercoaguable/afib) vs atherotic emobli off the aortic arch. CT A/P with unclear splenic lesion as well as LAD. Thus, recommendations as below. He was also found to have an obstructing ureter calculus. Discussed risks/benefits of coming off ASA/dabiagatran in the post-stroke period with highest risk of stroke in the next 6months. He is planning to postpone his trip to [place] and complete medical work-up here. Work-up: -TADEO to look for intracardiac clot, PFO, and/or aortic atheroma - This test will help determine need for ASA on top of anticoagulation. To be done at [facility] [place]. -Discussed whether we should pursue hypercoag work-up now, but given recent COVID 19 which may affect results, will defer testing as per Heme/Vascular as an outpatient. He is being referred to [facility] Hematology as further work-up. -LAD seen in pelvis, further work-up as per hospital team Medications: -aspirin 81mg daily for secondary stroke prevention; ADRs discussed -dabigatran 150mg BID for secondary stroke prevention -atrovastatin 40mg daily for secondary stroke prevention, goal LDL <70 Other: -Ok to start slowly lowering BP to goal 120-140 systolic He will follow-up in neurology clinic in 4-6 weeks. Subjective Subjective Interval history since last seen: No issues overnight. They have decided they are going to postpone going to [place] at this time in order to follow-up on his medical issues. He has been taken off COVID precautions. -CT A/P w/o (04/28/23): Concerning findings include: Obstructing L ureter callculus with multiple bilateral calculi. LAD along the L aortic bifurcation and the L iliac chain. Subcapsular hypodensity in the spleen concerning for hemangioma or more concerning pathology. Exam Narrative Exam Narrative: Physical Exam: Constitutional: Patient of apparent stated age, well nourished, well developed, no acute distress Neuro: MS/Language/Speech: Alert, oriented, clear language (fluency and comprehension), no dysarthria Motor: Moves all extremities equally. Coordination: no ataxia Objective Last Vital Signs Temp 97.9 F 04/29/23 15:22 Pulse 62 04/29/23 15:22 Resp 16 04/29/23 15:22 BP 109/58 L 04/29/23 15:22 Pulse Ox 91 L 04/29/23 15:22 Laboratory Results - last 24 hr 04/28/23 04/29/23 04/29/23 21:45 06:06 06:06 WBC 6.40 RBC 4.44 Hgb 13.2 L Hct 40.1 MCV 90 MCH 29.7 MCHC 32.9 RDW 13.6 Plt Count 144 MPV 11.4 H Immature Gran % 0.2 Neutrophils % 68.1 Lymphocytes % 17.3 Monocytes % 12.0 Eosinophils % 1.9 Basophils % 0.5 Nucleated RBC % 0.0 Absolute Neutrophils 4.36 Absolute Lymphocytes 1.11 L Absolute Monocytes 0.77 Absolute Eosinophils 0.12 Absolute Basophils 0.03 Sodium 138 Potassium 3.9 Chloride 102 Carbon Dioxide 27.9 Anion Gap 8.1 BUN 25 H Creatinine 1.0 Est GFR (CKD-EPI 2020) 77.52 Glucose 97 Calcium 8.7 Magnesium 2.0 Urine Color Yellow Urine Clarity Clear Urine pH 6.0 Ur Specific Granite 1.015 Urine Protein 30 H Urine Ketones Negative Urine Blood Large H Urine Nitrite Negative Urine Bilirubin Negative Urine Urobilinogen 2.0 H Ur Leukocyte Esterase Negative Urine RBC >50 H Urine WBC Negative Ur Epithelial Cells Rare Urine Crystals Negative Urine Bacteria Negative Urine Mucus Negative Ur Culture Indicated? No Urine Glucose Negative Time Spent with Patient Time Spent with Patient: 25-34 minutes Time was spent: preparing to see the patient(eg.review tests), obtaining and/or reviewing separately otained hiistory, referring, communicating with other health critical care nurse specialist and counseling the patient
--- NOTE | 2023-04-29 16:53 | PDOC.CMPRO ---
Date of service: 04/29/23 Time of Service: 16:53 Care Management Progress Note Progress Note Text Progress Note Text: S/O: Francisco continues to meet inpatient level of care. He was evaluated by neurology and cardiology yesterday.
--- NOTE | 2023-04-29 16:57 | PDOC.CMDIS ---
Date of service: 04/29/23 Time of Service: 16:58 LACE Index Scoring Tool Questions: Length of Stay (in days): 4 - 6 Was the patient admitted via the E.D.?: Yes Comorbidities: Cerebrovascular Disease E.D. Visits: 1 Answers: Total Score: 9 Risk of Readmission: Low Risk Care Management Discharge Plan Reason for Hospitalization: Embolic cerebrovascular disease, Elevated troponin, Covid Discharge Plan: Francisco is discharged home with no services. He will follow up with his PCP and plan of care as instructed. He is transported home by his via private vehicle. Patient/Family Education Needs: Review of discharge instructions including medications, limitations and follow up plan of care; discuss Ask Me Three and self management.
--- NOTE | 2023-04-29 17:22 | DSE_ITS ---
Date of service: 04/29/23 Time of Service: 17:22 DS: Diagnosis Discharge Diagnosis (1) Embolic stroke: Status: Acute (2) Atrial fibrillation: Status: Acute (3) Elevated troponin: Status: Acute Asessment and Plan: ?NSTEMI (4) Urinary tract obstruction by kidney stone: Status: Acute (5) Pelvic lymphadenopathy: Status: Acute (6) Splenic lesion: Status: Acute (7) COVID-19: Status: Resolved (8) Pulmonary emboli: Status: Chronic (9) Acute deep vein thrombosis of upper extremity: Status: Chronic Discharge Plan Disposition Patient Disposition: Home Condition: Improving Discharge Details Reason For Visit: small brain infarcts, elevated troponin Admit Date/Time: 04/25/23 21:17 Admit Provider: Jhonny Robles Attending Provider: Jhonny Robles Primary Care Provider: Aakash Turner Hospital Course Hospital Course: Mr Atkinson is a 77 year old male with PMHx of LUE DVT and PE in 03/19, as well as h/o Afib on apixaban, h/o CAD s/p CABG/stents with known residual disease, nephrolithiasis, COVID-19 diagnosed in mid-March, who was admitted to [facility] hospitalist service on 04/25/23 having presented with episodes of lightheadedness and weakness in the two days preceding admission. The patient had a similar episode in the ED. His workup in the ED included an MRI of the brain which showed new small embolic emboli in multiple territories of the brain. [facility] [place] [place] was sought; he was recommended to remain on his apixaban. Concurrently, the patient had a mildly elevated troponin without chest pain. There were nonspecific dynamic changes on his EKG. This was reviewed with [facility]: it was felt that the EKG changes probably were due to a stroke and, at the time, no recommendations were made for change of therapy at the time. The patient was evaluated by Dr Mckenzie of neurology on 04/28/23. The patient's anticoagulation with apixaban is being changed to pradaxa, given that the st rokes happened while on apixaban - i.e., this was an apixaban failure. A baby aspirin was also added. The patient is being maintained on atorvastatin 40 mg. The patient will need a TADEO to rule out intracardiac clot, PFO, or aortic atheroma. This referral is being sent. Because the of the multi-territory distribution of the strokes, malignancy needed to be ruled out. The patient had had a CTA recently (in 03/19, diagnosing him with a PE), but had not had a CT of the abdomen/pelvis.This was obtained and revealed nonspecific pelvic adenopathy. There was also a splenic lesion which could not be further characterized. Given the fact that the patient had just recovered from COVID-19, it's possible that that's the cause of the lymphadenopathy. However, malignancy does need to be ruled out. I have spoken with [facility], sent images for their review, as well as faxed an order/referral for them to perform an image-guided biopsy of the pelvic lymphadenopathy. The patient is also getting referred to heme/onc as he will need further malignancy workup. The patient did have an echocardiogram (transthoracic) to evaluate for wall motion abnormalities given his troponin elevations/possible type 1 vs type 2 NSTEMI. The echocardiogram did not show wall motion abnormalities. We do still feel that addition of aspirin is prudent. Finally, for the incidentally discovered obstructing 11 x 9 mm upper left ureteral stone, the patient was evaluated by Dr Carranza of urology. Because of his recent strokes and a non-emergent nature of his CT findings (he does not have a UTI/sepsis), our facility is not able to perform cystoscopy/stent placement on this admission/for the next 6 months. The patient is being referred to [facility] urology by Dr Carranza to have this addressed as outpatient. The patient is medically stable for discharge home today. He is asymptomatic at this time. He should follow up with his PCP, Dr Mckenzie, [facility], cardiology for TADEO and the possible NSTEMI, Heme/Onc, urology. Care for patient as well as completion of his discharge summary on day of discharge took 45 minutes. Home Meds and New Rx's Prescriptions: New aspirin 81 mg Tablet,Delayed Release (Dr/Ec) 81 mg PO DAILY Qty: 30 0RF dabigatran etexilate 150 mg capsule 150 mg PO BID Qty: 60 0RF Continued potassium citrate 10 mEq (1,080 mg) tablet extended release 10 meq PO DAILY Qty: 90 3RF atorvastatin 40 mg tablet 40 mg PO DAILY Qty: 90 12RF Shingrix (PF) 50 mcg/0.5 mL suspension for reconstitution 0.5 ml IM ONCE Qty: 1 0RF Rx Instructions: as a single dose lorazepam 1 mg tablet 1 mg PO DAILY PRN (Reason: anxiety) Qty: 10 0RF Rx Instructions: FOR AIR TRAVEL ONLY metoprolol succinate 25 mg tablet extended release 24 hr 25 mg PO DAILY Qty: 90 3RF isosorbide mononitrate 60 mg tablet extended release 24 hr 60 mg PO DAILY Qty: 90 3RF amlodipine 5 mg tablet 5 mg PO DAILY Qty: 90 3RF omeprazole 40 mg capsule,delayed release(DR/EC) 40 mg PO DAILY Qty: 90 3RF sotalol [Betapace] 160 mg tablet 160 mg PO BID Qty: 180 3RF Discontinued apixaban 5 mg tablet 5 mg PO BID Qty: 180 3RF Discharge Instructions Instructions: Dabigatran (By mouth), Heart Attack (DC), Kidney Stones (DC), Lymph Node Biopsy (DC), Stroke (DC), Transesophageal Echocardiogram (DC) Additional Instructions: Return to the hospital with any bleeding, fever, chest pain, or shortness of breath. Follow up with your PCP in 1-2 weeks. Follow up with Dr Mckenzie of neurology. Follow up with [facility] for a transesophageal echo. Follow up with [facility] [place]ology/oncology. Follow up with [facility]. [facility] will contact you with times/dates of our appointments. Stand Alone Forms: Nursing Discharge Form Referrals: CARDIOLOGY,[facility] [place]] - 07/08/23 3:40 am (NSTEMI. Also a referral was sent for a TADEO) [facility]OLOGY,[facility] [place]] - (being arranged by Dr Carranza) [facility] [OTHER] - Aakash Turner NP [Primary Care Provider] - (Please call your primary care and make an appointment within the next 1-2 weeks. ) Jo Flannery MD [ [facility] STAFF PHYSICIAN] - Activity:: Activity as Tolerated Equipment/Supplies:: No Equipment Needed Diet:: As Tolerated Discharge Orders Discharge Orders: Discharge Order (Routine); Ordered 04/29/23 Ordered By: Destinee Canela Discharge Data Discharge Date/Time-TO BE ENTERED AT DEPARTURE: 04/29/23 18:10 DS: Summary Time Spent with Patient providing and/or coordinating discharge services: Greater than 30 minutes Status at Discharge Functional status at discharge: independent ambulation Overall status at discharge: patient is progressing back to baseline Mental Status: mental status grossly normal Speech and Movement: speech and movement normal Mood: congruent mood Affect: normal affect Exam Narrative Exam Narrative: General: Pleasant male with a R facial droop which disappears when he smiles, SN[place]MIE, no other obvious focal deficits HEENT: EOMI, MMM Heart: RRR, no m/r/g Lungs: CTAB Abdomen: soft, nontender, nondistended Extremities: no edema BLEs Psych Mental Status: mental status grossly normal Speech and Movement: speech and movement normal Mood: congruent mood Affect: normal affect DS: Data Vitals/I&O Vitals and I&O: Vital Signs Temperature 36.6 C 04/29/23 15:22 Temperature Source Tympanic 04/29/23 15:22 Pulse 62 04/29/23 15:22 Pulse Rhythm Regular 04/29/23 08:10 Respiratory Rate 16 04/29/23 15:22 Respiratory Effort Normal, Non-Labored 04/29/23 08:10 Respiratory Depth Normal 04/29/23 08:10 Respiratory Pattern Normal 04/29/23 08:10 Blood Pressure 109/58 L 04/29/23 15:22 Blood Pressure Position Sitting 04/25/23 12:00 Pulse Oximetry 91 L 04/29/23 15:22 Oxygen Delivery Method Room Air 04/29/23 15:22 Oxygen Flow Rate 0 04/29/23 15:22 Pain Level 0 04/29/23 11:00 Intake & Output 04/28/23 04/29/23 04/29/23 23:59 11:59 23:59 Intake Total 360 / 360 Balance 360 / 360 Weight 96.3 kg Intake: Oral 360 / 360 Other: Urine Color Pale Yellow Stool Size Moderate Stool Characteristics Formed Voiding Methods Toilet Toilet Data Completed and Pending Completed studies during hospitalization [Text1]: Head/neck CTA: 1. There is some plaque bilaterally at the carotid bulbs and proximal ICAs, slightly more so on the left than right but the amount of stenosis is less than 30 percent bilaterally.? No evidence of dissection.? 2.? Patent vertebral arteries. 3.? Patent intracranial arteries. 4. No abnormal enhancing intracranial findings. CXR: No acute pulmonary findings. Brain MRI: There are multiple tiny foci of restricted diffusion in both cerebellar hemispheres as well as the right occipital lobe consistent with multiple tiny lacunar infarcts, possibly embolic given the distribution.? These are not associated with hemorrhage or surrounding edema. CT abdomen/pelvis: 1. Main finding is an obstructing 11 by 9 mm calculus the upper left ureter just beyond the UPJ and with mild dilatation of the left collecting system above this level.? There are multiple calculi also evident in both kidneys.? No obstructing calculi in the opposite-right side.? There also multiple benign cysts in both kidneys measuring up to 6 cm..? There are no solid lesions in either kidney. 2. There are abnormally enlarged lymph nodes adjacent to the left side of the aortic bifurcation and along the left iliac chain within the pelvis.? Right- sided enlarged lymph nodes and there is no inguinal adenopathy. 3. Spleen is not enlarged but contains an abnormal area of subcapsular hypodensity posteriorly measuring 3 x 2 cm which does not have the appearance of a simple cyst.? May represent an hemangioma or more concerning pathology.? This can be further studied with the contrast infused MRI using hemangioma protocol, if clinically indicated. 4. No evidence of pancreatic mass.? No adrenal masses. 5.? There are multiple hypodensities in the liver measuring up to 12 mm which have the appearance of benign cysts. Echo: The left ventricular wall thickness and chamber size.? Ejection fraction is 60 to 65%.? Wall motion is normal Normal right ventricular size and systolic function Left atrium is moderately enlarged.? Right atrial size is normal Aortic valve is trileaflet and sclerotic with mild regurgitation Mildly thickened mitral leaflets.? Moderate mitral regurgitation Dilated ascending aorta measuring 4.16 cm Labs on day of discharge: Labs from last 24 hours 04/29/23 04/29/23 04/28/23 06:06 06:06 21:45 WBC 6.40 RBC 4.44 Hgb 13.2 L Hct 40.1 MCV 90 MCH 29.7 MCHC 32.9 RDW 13.6 Plt Count 144 MPV 11.4 H Immature Gran % 0.2 Neutrophils % 68.1 Lymphocytes % 17.3 Monocytes % 12.0 Eosinophils % 1.9 Basophils % 0.5 Nucleated RBC % 0.0 Absolute Neutrophils 4.36 Absolute Lymphocytes 1.11 L Absolute Monocytes 0.77 Absolute Eosinophils 0.12 Absolute Basophils 0.03 Sodium 138 Potassium 3.9 Chloride 102 Carbon Dioxide 27.9 Anion Gap 8.1 BUN 25 H Creatinine 1.0 Est GFR (CKD-EPI 2020) 77.52 Glucose 97 Calcium 8.7 Magnesium 2.0 Urine Color Yellow Urine Clarity Clear Urine pH 6.0 Ur Specific Wilson 1.015 Urine Protein 30 H Urine Ketones Negative Urine Blood Large H Urine Nitrite Negative Urine Bilirubin Negative Urine Urobilinogen 2.0 H Ur Leukocyte Esterase Negative Urine RBC >50 H Urine WBC Negative Ur Epithelial Cells Rare Urine Crystals Negative Urine Bacteria Negative Urine Mucus Negative Ur Culture Indicated? No Urine Glucose Negative PFSH All Active Problems (Updated 04/30/23 @ 00:07 by NIMA MCGRATH) Acute deep vein thrombosis of upper extremity (Chronic) LUE Pulmonary emboli (Chronic) Splenic lesion (Acute) Pelvic lymphadenopathy (Acute) Urinary tract obstruction by kidney stone (Acute) Embolic stroke (Acute) Dizziness (Acute) Elevated troponin (Acute) Embolic cerebrovascular disease (Acute) Hyperglycemia (Acute) [id number] BPH associated with nocturia (Acute) Actinic keratosis (Acute) Gastroesophageal reflux disease without esophagitis (Acute) Dysphonia (Acute) Tubular adenoma (Acute) , ? 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 2017 had three stents placed. 2 PR's 1996 & 1989 F/U with Dr. Barraza in [place] 07/15 History of coronary artery bypass surgery History of lithotripsy LITHOTRIPSY Status post appendectomy Family History Mother , AGE 92 No problems noted. Father , AGE 72 No problems noted. Brother , AGE 72 No problems noted. Brother No problems noted. Son No problems noted. Daughter No problems noted. Social History Smoking/Tobacco Use Status: Former Tobacco Use tobacco type: cigarettes Quit Date: 07/28/95 Tobacco: How many years used: 20 Second Hand Exposure: Yes Smoking risk assessment performed?: Yes Alcohol Intake: current Alcohol Intake frequency: a few times a week Alcohol type: hard liquor Drug use: Never Substance use type: does not use Caregiver/Support person: No Household members: spouse Housing: house Communication Needs: Hard of Hearing Do you need help understanding health information?: Rarely Pets and animals: No Sexually active: No Do you think of yourself as: straight/heterosexual Current gender identity: male What is your relationship status?: How often do you talk on the phone with friends or family?: three or more times per week How often do you get together with friends or relatives?: twice per week Do you belong to any clubs or organized social groups?: no Panel score (0-1 are the most socially isolated patients): 2 What type of physical activity do you participate in: walking and bicycling Duration: 30-45 minutes/day Frequency: 3-4 times per week Ruth/Yazidi: Congregational Special ruth needs: No Do you feel safe at home: Yes Do you feel safe in your relationship?: Yes Time Spent with Patient Time Spent with Patient: 45-69 minutes Time was spent: preparing to see the patient(eg.review tests), obtaining and/or reviewing separately otained hiistory, ordering medications,tests, procedures, referring, communicating with other health aged or disabled carer, indepentently interpreting results, counseling the patient and care coordination
[2023-04-29 17:50] VITALS: PULSE 67; PULSE 68; PULSE 75; RESP 16; O2SAT 93; O2SAT 95; O2SAT 96
--- NOTE | 2023-05-01 10:10 | W.UROLOGYCON ---
Date of service: 04/29/23 Time of Service: 16:00 Assessment and Plan Assessment and plan (1) Urinary tract obstruction by kidney stone: Status: Acute Assessment and plan: The patient has past up to 8 mm stones previously. It is unlikely then an 11 mm stone will pass, so we generally will recommend some type of surgical intervention. The intervention could include a ureteral stent to decompress the left collecting system or perhaps ureteroscopy and holmium laser lithotripsy to treat the stone itself. I discussed the patient's case with our anesthesia providers. Here at our [facility], the anesthesia protocol states that the patient must wait 6 months after a stroke before any elective procedure can be undertaken. This patient is not septic, so I cannot in good ruth to clear him in emergency situation. Not being able to perform the procedure here, I have offered to make an outpatient referral to the providers at a tertiary care center who can hopefully address his kidney stone much sooner than I could. History of Present Illness History of Present Illness Chief Complaint: Left ureteral stone Narrative: This is a 77-year-old gentleman who has a history of bilateral kidney stones. He has had multiple procedures including ESWL and ureteroscopy in the past. We have been monitoring known kidney stones with periodic imaging studies and symptom checks. He is currently hospitalized after having had embolic strokes. He is anticoagulated. As part of his evaluation, his CT of the abdomen and pelvis was obtained. An 11 mm left proximal ureteral stone was identified. I have been asked to see him for this issue. He does have some occasional left flank and abdominal pain. He does not have severe renal colic symptoms that he recalls from previous episodes. He is not seeing any gross hematuria. He has no fevers or chills. He has no nausea or vomiting. I do not have access to previous stone analysis information, but the patient and his believe that he had calcium oxalate stones. Review of Systems Narrative: No fevers or chills No vision change or dysphasia No diabetes or thyroid dysfunction Recent positive Covid test (@ 10 days ago). No shortness of breath, cough or hemoptysis Hx atrial fibrillation. No chest pain or palpitations GERD. No nausea, vomiting, hepatitis, ulcers, jaundice No seizures or peripheral neuropathy No bleeding disorders or anemia No gout or arthralgia PFSH All Active Problems (Updated 04/30/23 @ 00:07 by NIMA MCGRATH) Acute deep vein thrombosis of upper extremity (Chronic) LUE Pulmonary emboli (Chronic) Splenic lesion (Acute) Pelvic lymphadenopathy (Acute) Urinary tract obstruction by kidney stone (Acute) Embolic stroke (Acute) Dizziness (Acute) Elevated troponin (Acute) Embolic cerebrovascular disease (Acute) Hyperglycemia (Acute) [id number] BPH associated with nocturia (Acute) Actinic keratosis (Acute) Gastroesophageal reflux disease without esophagitis (Acute) Dysphonia (Acute) Tubular adenoma (Acute) , ? 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 2017 had three stents placed. 2 IL's 1996 & 1989 F/U with Dr. Barraza in [place] 07/15 History of coronary artery bypass surgery History of lithotripsy LITHOTRIPSY Status post appendectomy Family History Mother , AGE 92 No problems noted. Father , AGE 72 No problems noted. Brother , AGE 72 No problems noted. Brother No problems noted. Son No problems noted. Daughter No problems noted. Social History Smoking/Tobacco Use Status: Former Tobacco Use tobacco type: cigarettes Quit Date: 07/28/95 Tobacco: How many years used: 20 Second Hand Exposure: Yes Smoking risk assessment performed?: Yes Alcohol Intake: current Alcohol Intake frequency: a few times a week Alcohol type: hard liquor Drug use: Never Substance use type: does not use Caregiver/Support person: No Household members: spouse Housing: house Communication Needs: Hard of Hearing Do you need help understanding health information?: Rarely Pets and animals: No Sexually active: No Do you think of yourself as: straight/heterosexual Current gender identity: male What is your relationship status?: How often do you talk on the phone with friends or family?: three or more times per week How often do you get together with friends or relatives?: twice per week Do you belong to any clubs or organized social groups?: no Panel score (0-1 are the most socially isolated patients): 2 What type of physical activity do you participate in: walking and bicycling Duration: 30-45 minutes/day Frequency: 3-4 times per week Ruth/Jehovah'S Witness: Scientologist Special ruth needs: No Do you feel safe at home: Yes Do you feel safe in your relationship?: Yes Exam Narrative Exam Narrative: He is a very pleasant gentleman who does not appear septic or toxic His vital signs are documented elsewhere His abdomen is soft with no peritoneal signs He is awake and alert I reviewed his CT scan on the PACS system. He does have bilateral kidney stones but there is a left proximal ureteral stone causing hydronephrosis. The stone measures up to 11 mm in largest dimension. Results Last Vital Signs Temp 36.6 C 04/29/23 15:22 Pulse 62 04/29/23 15:22 Resp 16 04/29/23 15:22 BP 109/58 L 04/29/23 15:22 Pulse Ox 91 L 04/29/23 15:22 Labs 04/29/23 06:06 04/29/23 06:06
== END 2023-04-29 18:10 | disposition home or self-care (01) | DRG 64 ==
LOC: ER 21:52 → MS 22:38
PROVIDERS: Emergency Medicine Emergency Medical Services; Family Medicine; Internal Medicine; Admitting Provider Family Medicine; Emergency Provider Emergency Medicine; PCP Nurse Practitioner Family; Visit Provider Family Medicine
DX: I21.4 Non-ST elevation (NSTEMI) myocardial infarction; U07.1 COVID-19; I24.89 Other forms of acute ischemic heart disease; I63.10 Cerebral infarction due to embolism of unspecified precerebral artery; N20.1 Calculus of ureter; I48.91 Unspecified atrial fibrillation; I25.10 Atherosclerotic heart disease of native coronary artery without angina pectoris; Z86.718 Personal history of other venous thrombosis and embolism; R73.9 Hyperglycemia, unspecified; R42 Dizziness and giddiness; N40.1 Benign prostatic hyperplasia with lower urinary tract symptoms; R35.1 Nocturia; K21.9 Gastro-esophageal reflux disease without esophagitis; M54.50 Low back pain, unspecified; E78.5 Hyperlipidemia, unspecified; Z95.1 Presence of aortocoronary bypass graft; I25.2 Old myocardial infarction; Z95.5 Presence of coronary angioplasty implant and graft; F41.9 Anxiety disorder, unspecified; M10.9 Gout, unspecified; D75.89 Other specified diseases of blood and blood-forming organs; Z87.891 Personal history of nicotine dependence; Z86.711 Personal history of pulmonary embolism; R59.9 Enlarged lymph nodes, unspecified; D73.89 Other diseases of spleen; N20.0 Calculus of kidney
CPT/HCPCS: 36415; 70496; 70498; 80048; 80053; 80061; 84145; 87635; 87637; 93005; 93306; 94618; 96374; 97161; 99222; 99223; 99232; 99285; 70551; 71045; 74177; 81003; 81015; 83036; 83735; 84443; 84484; 85025; 93010; 99233; 99239; J2060; J3490; Q9967

== ENCOUNTER → 2023-04-28 07:39 | Outpatient (BNVA) | payer MEDICARE, BC, SELFPAY | PROVIDERS: PCP Nurse Practitioner Family; Referring Provider Nurse Practitioner Family; Visit Provider Internal Medicine Cardiovascular Disease ==

== ENCOUNTER → 2023-04-28 08:10 | Outpatient (BNVA) | payer MEDICARE, BC, SELFPAY | PROVIDERS: PCP Nurse Practitioner Family; Referring Provider Nurse Practitioner Family; Visit Provider Psychiatry & Neurology Neurology ==

== ENCOUNTER → 2023-04-29 08:28 | Outpatient (BNVA) | payer MEDICARE, BC, SELFPAY | PROVIDERS: PCP Nurse Practitioner Family; Referring Provider Nurse Practitioner Family; Visit Provider Urology ==

== ENCOUNTER 2024-01-12 05:53 | Outpatient (CLI) | payer MEDICARE, BC, SELFPAY ==
[2024-01-12 12:19] LABS: HGB 10.9 g/dL (13.5-17.5); MCH 31.9 pg (27.0-33.0); MCHC 32.1 % (32.0-36.0); MCV 99 fL (80-95); MPV 11.9 fL (8.0-11.0); Platelet Count 165 10^3/uL (130-400); RBC 3.42 10^6/uL (4.36-5.78); RDW 13.3 % (11.8-14.1); RDW-SD 48.7 fL; WBC 3.73 10^3/uL (4.4-10.8)
[2024-01-12 12:46] LABS: ALT 34 U/L (16-63); AST 32 U/L (15-37); Albumin 3.7 g/dL (3.4-5.0); Alkaline Phosphatase 109 U/L (46-116); Anion Gap 6.6 mmol/L (3-11); BUN 29 mg/dL (7-18); Bilirubin, Total 0.9 mg/dL (0.2-1.0); CO2 28.4 mmol/L (21.0-32.0); CREATININE 1.2 mg/dL (0.70-1.30); Calcium 9.2 mg/dL (8.5-10.1); Calculated LDL 94 mg/dL (<100); Chloride 107 mmol/L (98-107); Cholesterol 159 mg/dL (<200); Glucose 115 mg/dL (74-106); HDL Cholesterol 46 mg/dL (40-60); Sodium 142 mmol/L (136-145); Total Protein 7.2 g/dL (6.4-8.2); Triglyceride 97 mg/dL (<150)
[2024-01-12 23:14] LABS: PSA, Screening 0.2 ng/mL (<=6.5)
== END 2024-01-12 05:54 | disposition home or self-care (01) ==
LOC: LOS 05:53
PROVIDERS: PCP Nurse Practitioner Family; Visit Provider Nurse Practitioner Family
DX: E78.5 Hyperlipidemia, unspecified (principal); C61 Malignant neoplasm of prostate; Z12.5 Encounter for screening for malignant neoplasm of prostate
CPT/HCPCS: 36415; 80053; 80061; 84153; 85027

== ENCOUNTER 2024-02-04 08:34 | Outpatient (CLI) | payer MEDICARE, BC, SELFPAY ==
[2024-02-04 07:51] LABS: Abs Immature Grans 0.05 10^3/uL (0.0-0.06); Absolute Basophil Count 0.02 10^3/uL (0.0-0.2); Absolute Lymphocyte Count 0.84 10^3/uL (1.2-3.4); Absolute Monocyte Count 0.63 10^3/uL (0.1-0.8); Absolute Neutrophil Count 6.28 10^3/uL (1.2-6.7); Basophils % 0.3 %; Eosinophils % 1.3 %; HCT 37.4 % (40.0-50.0); HGB 12.2 g/dL (13.5-17.5); Immature Grans % 0.6 %; Lymphocytes % 10.6 %; MCH 32.8 pg (27.0-33.0); MCHC 32.6 % (32.0-36.0); MCV 101 fL (80-95); MPV 11.8 fL (8.0-11.0); Neutrophils % 79.2 %; Platelet Count 125 10^3/uL (130-400); RBC 3.72 10^6/uL (4.36-5.78); RDW 13.3 % (11.8-14.1); RDW-SD 49.2 fL; WBC 7.92 10^3/uL (4.4-10.8)
[2024-02-04 08:22] LABS: ALT 38 U/L (16-63); AST 24 U/L (15-37); Albumin 3.7 g/dL (3.4-5.0); Alkaline Phosphatase 145 U/L (46-116); BUN 24 mg/dL (7-18); Bilirubin, Total 0.66 mg/dL (0.2-1.0); CREATININE 1.1 mg/dL (0.70-1.30); Calcium 8.9 mg/dL (8.5-10.1); Chloride 108 mmol/L (98-107); Estimated GFR 68.71 (mL/min/1.73m2); Ferritin 133 ng/mL (26-388); Glucose 177 mg/dL (74-106); Potassium 4.1 mmol/L (3.5-5.1); Sodium 144 mmol/L (136-145); Total Protein 6.8 g/dL (6.4-8.2)
[2024-02-06 10:28] LABS: PSA, Ultrasensitive 0.05 ng/mL (<= 6.5)
[2024-02-07 16:46] LABS: Testosterone, Total <7.0 ng/dL (240-950)
== END 2024-02-04 08:35 | disposition home or self-care (01) ==
LOC: LBO 08:34
PROVIDERS: PCP Nurse Practitioner Family; Visit Provider Internal Medicine
DX: C61 Malignant neoplasm of prostate (principal); D50.0 Iron deficiency anemia secondary to blood loss (chronic)
CPT/HCPCS: 36415; 80053; 84153; 84403; 82728; 85025

== ENCOUNTER 2024-02-23 02:36 | Outpatient (CLI) | payer MEDICARE, BC, SELFPAY ==
[2024-02-23 12:53] LABS: Abs Immature Grans 0.02 10^3/uL (0.0-0.06); Absolute Basophil Count 0.01 10^3/uL (0.0-0.2); Absolute Eosinophil Count 0.03 10^3/uL (0.0-0.7); Absolute Lymphocyte Count 0.95 10^3/uL (1.2-3.4); Absolute Monocyte Count 0.44 10^3/uL (0.1-0.8); Absolute Neutrophil Count 3.62 10^3/uL (1.2-6.7); Basophils % 0.2 %; Eosinophils % 0.6 %; HGB 11.8 g/dL (13.5-17.5); Immature Grans % 0.4 %; Lymphocytes % 18.7 %; MCH 32.4 pg (27.0-33.0); MCHC 32.8 % (32.0-36.0); MCV 99 fL (80-95); MPV 11.5 fL (8.0-11.0); Monocytes % 8.7 %; Neutrophils % 71.4 %; Platelet Count 169 10^3/uL (130-400); RBC 3.64 10^6/uL (4.36-5.78); RDW 13.2 % (11.8-14.1); RDW-SD 48.1 fL; WBC 5.07 10^3/uL (4.4-10.8)
[2024-02-23 13:25] LABS: ALT 34 U/L (16-63); AST 25 U/L (15-37); Albumin 3.7 g/dL (3.4-5.0); Alkaline Phosphatase 133 U/L (46-116); Anion Gap 5.5 mmol/L (3-11); BUN 29 mg/dL (7-18); Bilirubin, Total 0.56 mg/dL (0.2-1.0); CO2 29.5 mmol/L (21.0-32.0); CREATININE 1.2 mg/dL (0.70-1.30); Calcium 9.1 mg/dL (8.5-10.1); Chloride 107 mmol/L (98-107); Ferritin 113 ng/mL (26-388); Glucose 110 mg/dL (74-106); Potassium 4.7 mmol/L (3.5-5.1); Sodium 142 mmol/L (136-145); Total Protein 6.9 g/dL (6.4-8.2)
[2024-02-24 18:09] LABS: PSA, Ultrasensitive 0.06 ng/mL (<= 6.5)
[2024-02-28 13:50] LABS: Testosterone, Total <7.0 ng/dL (240-950)
== END 2024-02-23 02:37 | disposition home or self-care (01) ==
LOC: LBO 02:36
PROVIDERS: PCP Nurse Practitioner Family; Visit Provider Internal Medicine
DX: C61 Malignant neoplasm of prostate (principal)
CPT/HCPCS: 36415; 80053; 84153; 84403; 82728; 85025

== ENCOUNTER 2024-03-23 02:59 | Outpatient (CLI) | payer MEDICARE, BC, SELFPAY ==
[2024-03-23 08:18] LABS: Abs Immature Grans 0.04 10^3/uL (0.0-0.06); Absolute Basophil Count 0.02 10^3/uL (0.0-0.2); Absolute Eosinophil Count 0.11 10^3/uL (0.0-0.7); Absolute Lymphocyte Count 0.88 10^3/uL (1.2-3.4); Absolute Monocyte Count 0.55 10^3/uL (0.1-0.8); Absolute Neutrophil Count 3.59 10^3/uL (1.2-6.7); Basophils % 0.4 %; Eosinophils % 2.1 %; HCT 37.7 % (40.0-50.0); HGB 12.3 g/dL (13.5-17.5); Immature Grans % 0.8 %; MCH 32.5 pg (27.0-33.0); MCHC 32.6 % (32.0-36.0); MCV 100 fL (80-95); MPV 11.3 fL (8.0-11.0); Monocytes % 10.6 %; Neutrophils % 69.1 %; Platelet Count 172 10^3/uL (130-400); RBC 3.79 10^6/uL (4.36-5.78); RDW 13.4 % (11.8-14.1); WBC 5.19 10^3/uL (4.4-10.8)
[2024-03-23 08:44] LABS: ALT 30 U/L (16-63); AST 22 U/L (15-37); Albumin 3.6 g/dL (3.4-5.0); Alkaline Phosphatase 136 U/L (46-116); Anion Gap 5.9 mmol/L (3-11); BUN 36 mg/dL (7-18); Bilirubin, Total 0.84 mg/dL (0.2-1.0); CO2 30.1 mmol/L (21.0-32.0); CREATININE 1.2 mg/dL (0.70-1.30); Calcium 9.2 mg/dL (8.5-10.1); Chloride 105 mmol/L (98-107); Ferritin 121 ng/mL (26-388); Glucose 118 mg/dL (74-106); Potassium 4.3 mmol/L (3.5-5.1); Sodium 141 mmol/L (136-145); Total Protein 6.9 g/dL (6.4-8.2)
[2024-03-25 16:01] LABS: PSA, Ultrasensitive 0.03 ng/mL (<= 6.5)
[2024-03-26 16:08] LABS: Testosterone, Total <7.0 ng/dL (240-950)
== END 2024-03-23 03:00 | disposition home or self-care (01) ==
LOC: LBO 02:59
PROVIDERS: PCP Nurse Practitioner Family; Visit Provider Internal Medicine
DX: D50.0 Iron deficiency anemia secondary to blood loss (chronic) (principal); C61 Malignant neoplasm of prostate
CPT/HCPCS: 36415; 80053; 84153; 84403; 82728; 85025

== ENCOUNTER 2024-11-25 08:19 | Outpatient (CLI) | payer MEDICARE, BC, SELFPAY ==
[2024-11-25 08:48] LABS: Absolute Basophil Count 0.02 10^3/uL (0.0-0.2); Absolute Eosinophil Count 0.12 10^3/uL (0.0-0.7); Absolute Lymphocyte Count 1.02 10^3/uL (1.2-3.4); Absolute Monocyte Count 0.41 10^3/uL (0.1-0.8); Absolute Neutrophil Count 2.58 10^3/uL (1.2-6.7); Basophils % 0.5 %; Eosinophils % 2.9 %; HCT 35.3 % (40.0-50.0); HGB 11.6 g/dL (13.5-17.5); Lymphocytes % 24.6 %; MCH 30.9 pg (27.0-33.0); MCHC 32.9 % (32.0-36.0); MCV 94 fL (80-95); MPV 11.6 fL (8.0-11.0); Monocytes % 9.9 %; Neutrophils % 62.1 %; Platelet Count 171 10^3/uL (130-400); RBC 3.76 10^6/uL (4.36-5.78); RDW 13.3 % (11.8-14.1); WBC 4.15 10^3/uL (4.4-10.8)
[2024-11-25 09:16] LABS: ALT 33 U/L (16-63); AST 29 U/L (15-37); Albumin 3.6 g/dL (3.4-5.0); Alkaline Phosphatase 152 U/L (46-116); Anion Gap 5.4 mmol/L (3-11); BUN 29 mg/dL (7-18); Bilirubin, Total 0.5 mg/dL (0.2-1.0); CO2 29.6 mmol/L (21.0-32.0); Calcium 9.1 mg/dL (8.5-10.1); Chloride 108 mmol/L (98-107); Estimated GFR 76.56 (mL/min/1.73m2); Glucose 112 mg/dL (74-106); Potassium 4.4 mmol/L (3.5-5.1); Sodium 143 mmol/L (136-145)
[2024-11-27 11:01] LABS: PSA, Ultrasensitive 0.03 ng/mL (<= 6.5)
[2024-11-30 17:04] LABS: Testosterone, Total 7.6 ng/dL (240-950)
== END 2024-11-25 08:20 | disposition home or self-care (01) ==
LOC: LBO 08:19
PROVIDERS: PCP Nurse Practitioner Family; Visit Provider Nurse Practitioner
DX: C61 Malignant neoplasm of prostate (principal); D50.0 Iron deficiency anemia secondary to blood loss (chronic)
CPT/HCPCS: 36415; 80053; 84153; 84403; 85025

== ENCOUNTER → 2025-02-02 08:51 | Outpatient (BNVA) | payer MEDICARE, BC, SELFPAY | PROVIDERS: PCP Nurse Practitioner Family; Referring Provider Nurse Practitioner Family; Visit Provider Surgery | DX: R10.13 Epigastric pain (principal); R10.9 Unspecified abdominal pain; R06.09 Other forms of dyspnea; Z79.02 Long term (current) use of antithrombotics/antiplatelets; Z86.79 Personal history of other diseases of the circulatory system; Z98.890 Other specified postprocedural states | CPT/HCPCS: 99214 ==

== ENCOUNTER 2025-02-10 06:56 | Day surgery (SDC) | payer MEDICARE, BC, SELFPAY ==
[2025-02-10 07:26] VITALS: BP 101/85; PULSE 86; RESP 16; TEMP 36.2; O2SAT 97
[2025-02-10] MEDS: Lactated Ringers 1,000 ML 80 ML IV (07:44)
[2025-02-10 08:13] VITALS: BMI 29.2
--- NOTE | 2025-02-10 08:13 | W.ANESPRE ---
General Info Date of Service Date Performed: 02/10/25 Height: 6 ft Weight: 97.8 kg Body Mass Index (BMI): 29.2 Surgical Procedure: Operation Date: 02/10/25 08:20 Proposed Procedure Side Surgeon p Colonoscopy/Gastroscopy Amanda Page MD Actual Procedure Side Surgeon p Colonoscopy/Gastroscopy Not Applicable Amanda Page MD Meds Allergies and Home Medications Allergies Allergy/AdvReac Type Severity Reaction Status Date / Time No Known Allergies Allergy Verified 02/10/25 07:16 Home Medication ?Medication ?Instructions ?Recorded varicella-zoster glycoE [id number] 0.5 ml IM ONCE #1 ea 01/03/23 adj(PF) 50 mcg/0.5 mL IM susp, kit (Shingrix (PF)) lorazepam 1 mg tablet 1 mg PO DAILY PRN anxiety #10 tabs 03/26/23 aspirin 81 mg tablet,delayed 81 mg PO DAILY #30 tabs 04/29/23 release dabigatran etexilate 150 mg capsule 150 mg PO BID #180 caps 05/28/23 metoprolol succinate 25 mg 25 mg PO DAILY #90 tabs 08/21/23 tablet,extended release 24 hr atorvastatin 40 mg tablet 40 mg PO DAILY #90 tabs 08/23/24 omeprazole 40 mg capsule,delayed 40 mg PO DAILY #90 caps 11/01/24 release potassium citrate 10 mEq (1,080 10 meq PO DAILY #90 tabs 11/17/24 mg) tablet,extended release cholecalciferol (vitamin D3) 25 25 mcg PO DAILY #90 caps 12/06/24 mcg (1,000 unit) capsule relugolix 120 mg tablet (Orgovyx) 120 mg PO BID 01/10/25 venlafaxine 37.5 mg 37.5 mg PO DAILY 01/10/25 capsule,extended release 24 hr bisacodyl 5 mg tablet,delayed 5 mg PO ONCE colonscopy bowel prep 02/02/25 release (Dulcolax (bisacodyl)) #4 tabs polyethylene glycol 3350 17 238 g PO ONCE colonoscopy prep 02/02/25 gram/dose oral powder #238 grams sotalol 160 mg tablet (Betapace) 80 mg PO BID 02/02/25 tamsulosin 0.4 mg capsule 0.4 mg PO DAILY #90 caps 02/02/25 Current Visit Medications: Current Medications Generic Name Dose Route Start Last Admin Trade Name Rina PRN Reason Stop Dose Admin Ringer's Solution 1,000 mls @ 80 mls/hr 02/10/25 06:00 02/10/25 07:44 IV 02/10/25 23:59 80 mls/hr INFUSION RADHA Administration IV Miscellaneous Supplies 1 each 02/10/25 06:00 Iv Access IV 02/10/25 23:59 DIRECTED RADHA Sodium Biphosphate/Sodium Phosphate 133 ml 02/10/25 06:00 Na Phosphate Enema-Adult 133 Ml Btl OK 02/10/25 23:59 DIRECTED PRN Sodium Chloride 0 ml 02/10/25 06:00 Normal Saline Flush 10 Ml Syr IV 02/10/25 23:59 PRN PRN Sodium Chloride 0 ml 02/10/25 06:00 Normal Saline 10 Ml Vial IJ 02/10/25 23:59 DIRECTED PRN Sterile Water 0 ml 02/10/25 06:00 Water,Injection,Sterile 10 Ml Vial IJ 02/10/25 23:59 DIRECTED PRN PFSH Active Problems Active Problems: Problem Status Onset Code Status post ablation of atrial fibrillation Acute Z98.890, Z86.79 Antiplatelet or antithrombotic long-term use Acute Z79.02 Abdominal pain in male Acute R10.9 Epigastric pain Acute R10.13 Prostate cancer Chronic C61 Splenic lesion Acute D73.89 Pelvic lymphadenopathy Acute R59.0 Urinary tract obstruction by kidney stone Acute N20.0, N13.8 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 Elevated troponin Acute R77.8 Dizziness Acute R42 COVID-19 Resolved U07.1 Pulmonary emboli Chronic I26.99 Acute deep vein thrombosis of upper extremity Chronic I82.629 Hyperglycemia Acute R73.9 BPH associated with nocturia Acute N40.1, R35.1 Actinic keratosis Acute L57.0 Gastroesophageal reflux disease without esophagitis Acute K21.9 Dysphonia Acute R49.0 Tubular adenoma Acute D36.9 Anxiety Acute F41.9 Atherosclerosis of [place] coronary artery Acute I25.10 Atrial fibrillation Acute I48.91 Hyperlipidemia Acute E78.5 Lumbago Acute M54.5 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 2017 had three stents placed. 2 OH's 1996 & 1989 F/U with Dr. Barraza in [place] 07/15 Appendectomy Tobacco Smoking/Tobacco Use Status: Former Tobacco Use Passive smoking exposure: No Second hand exposure: No Alcohol Alcohol Intake: current Alcohol intake frequency: a few times a month Alcohol type: hard liquor Substance Use Substance use: Never Substance use type: does not use Vital Signs and Lab Results Vital Signs Most Recent Vital Signs in EMR: Most Recent Vital Signs Temp Pulse Resp BP Pulse Ox 36.2 C L 86 16 101/85 97 02/10/25 07:26 02/10/25 07:26 02/10/25 07:26 02/10/25 07:26 02/10/25 07:26 Anesthesia Assessment and Plan Anesthesia History Personal History: No History of Anesthesia Complications Family History: No Family History of Anesthesia Complications Exercise Tolerance Exercise Tolerance: Metabolic Equivalents>4 Pertinent Negatives Pertinent Negatives: No Symptoms of GERD Cardiac & Pulmonary Exam Cardiac Exam: Normal S1/S2 Heart Sounds Pulmonary Exam: Clear Bilateral Breath Sounds Implantable Cardiac Device Does patient have a Pacemaker or an ICD?: No Airway Exam Known Difficult Airway: No Mallampati Class: 2 Mouth Opening: Normal (> 3cm) Thyromental Distance: Greater than 3 cm Neck Range of Motion: Full ROM Neck Circumference: Normal Teeth Condition: Normal Dentition ASA Classification ASA Score: ASA 3 Emergency Case?: No NPO Status NPO Status: NPO Clears >2 hours, Solids >8 hours Anesthesia Plan Resuscitation Status: Full Code Anesthesia Technique: General Anesthesia Airway Planned: Natural Airway Monitors Used: Standard Monitors
--- NOTE | 2025-02-10 08:30 | STOM_PTH ---
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
[2025-02-10 09:03] VITALS: BP 80/64; PULSE 64; RESP 18; TEMP 36.4; O2SAT 94
--- NOTE | 2025-02-10 09:06 | PDOC.DSDIS_ITS ---
Date of service: 02/10/25 Discharge Plan Disposition Patient Disposition: Home Condition: Stable Discharge Details Reason For Visit: Epigastric pain, EGD and colonoscopy Attending Provider: Amanda Page Primary Care Provider: Aakash Turner Recommendations for Follow Up Recommended tests to be ordered by follow up provider: None, see me in office to review results and discuss next steps in senior care Meds and New Rx's Prescriptions: No Action Shingrix (PF) 50 mcg/0.5 mL suspension for reconstitution 0.5 ml IM ONCE Qty: 1 0RF Rx Instructions: as a single dose venlafaxine 37.5 mg capsule,extended release 24hr 37.5 mg PO DAILY Patient Comments: TAKE 1 CAPSULE BY MOUTH EVERYDAY WITH FOOD Orgovyx 120 mg tablet 120 mg PO BID sotalol [Betapace] 160 mg tablet 80 mg PO BID bisacodyl [Dulcolax (bisacodyl)] 5 mg tablet,delayed release (DR/EC) 5 mg PO ONCE Qty: 4 0RF Rx Instructions: take per colonoscopy instructions polyethylene glycol 3350 17 gram/dose powder 238 g PO ONCE Qty: 238 0RF Rx Instructions: take per colonoscopy instructions lorazepam 1 mg tablet 1 mg PO DAILY PRN (Reason: anxiety) Qty: 10 0RF Rx Instructions: FOR AIR TRAVEL ONLY dabigatran etexilate 150 mg capsule 150 mg PO BID Qty: 180 3RF metoprolol succinate 25 mg tablet extended release 24 hr 25 mg PO DAILY Qty: 90 3RF atorvastatin 40 mg tablet 40 mg PO DAILY Qty: 90 3RF omeprazole 40 mg capsule,delayed release(DR/EC) 40 mg PO DAILY Qty: 90 3RF potassium citrate 10 mEq (1,080 mg) tablet extended release 10 meq PO DAILY Qty: 90 3RF cholecalciferol (vitamin D3) 25 mcg (1,000 unit) capsule 25 mcg PO DAILY Qty: 90 3RF tamsulosin 0.4 mg capsule 0.4 mg PO DAILY Qty: 90 3RF Patient Comments: TAKE 1 CAPSULE BY MOUTH AT BEDTIME aspirin 81 mg Tablet,Delayed Release (Dr/Ec) 81 mg PO DAILY Qty: 30 0RF Discharge Instructions Additional Instructions: The pain in the upper abdomen/lower chest that you feel - based on exam today, this may be due to gastritis, a raw inflammation of the bottom of the stomach. It was mild on exam and is treated with medication. Continue taking omeprazole 40mg daily which is ahome med of yours. If pain recurs by the time I see you again I will change that to something stronger for the gastritis. No dangerous or bad findings today. Your colonoscopy was normal and you wont need another routine one done again, congratulations. Resume your dabigatran in 48 hours. Activity:: Activity as Tolerated Diet:: As Tolerated Discharge Orders Discharge Orders: Discharge Order (Routine); Ordered 02/10/25 Ordered By: Amanda Page DS: Diagnosis Discharge Diagnosis (1) Epigastric pain: Status: Acute (2) Gastroesophageal reflux disease without esophagitis: Status: Acute (3) Antral gastritis: Status: Acute
--- NOTE | 2025-02-10 09:11 | W.COLOREPORT ---
Date of service: 02/10/25 Time of Service: 09:12 Colonoscopy Report Date of procedure: 02/10/25 Pre-op diagnosis general: screening colonoscopy Post-op diagnosis procedure note: other (normal screening colonoscopy) Procedure: Screening colonoscopy Surgeon: Amanda Page Anesthesia Type: MAC Estimated blood loss (mL): 0 Pathology: none sent Complications: None Prep: Miralax/Dulcolax Procedure Description: Informed consent was obtained the patient was taken to the procedure area and placed in left lateral decubitus position on the table. Timeout was performed. Anesthesia was induced. The colonoscope was lubricated and inserted through the anus to the cecum. The cecum was identified by the appendiceal orifice and ileocecal valve. The scope was then slowly withdrawn and the mucosa examined. Withdrawal time was greater than 6 minutes. The colonic mucosa was normal without mass polyp or AVM. There was sigmoid diverticulosis noted without diverticulitis. Internal hemorrhoids grade 2 without complication. Assessment and plan; Normal screening colonoscopy. Neck screening colonoscopy will be due in 10 years at which time he will be 89 years old and will not be required to have one. High-fiber diet recommended for colonoscopy for diverticulosis.
--- NOTE | 2025-02-10 09:21 | W.ANESPOSTOP ---
Postoperative Evaluation Date, Time and Location Date Performed: 02/10/25 Time Performed: 09:21 Patient Location: Day Surgery Unit Vital Signs Most Recent Imported Vital Signs: Most Recent Vital Signs Temp Pulse Resp BP Pulse Ox 36.4 C L 64 18 80/64 L 94 02/10/25 09:03 02/10/25 09:03 02/10/25 09:03 02/10/25 09:03 02/10/25 09:03 Pain Score Most Recent Pain Score: Most Recent Pain Score Pain Level 0 02/10/25 09:03 Assessment Mental Status: Awake (Alert & Oriented to Patient Baseline) Airway and Respiratory Function: Patent airway with normal (patient baseline) respiratory exam Cardiovascular Function: Hemodynamically Stable Hydration Status: Adequately Hydrated Nausea & Vomiting: No Nausea or Vomiting Pain: Pt. Denies Any Pain Peripheral Nerve Block: Patient did not receive a nerve block
[2025-02-10 09:26] VITALS: BP 97/69; PULSE 66; RESP 16; TEMP 36.2; O2SAT 93
--- NOTE | 2025-02-10 10:00 | ENDO_ITS ---
Date of service: 02/10/25 Time of Service: 08:50 Endoscopy Report DATE OF PROCEDURE: 02/10/25 PRE-OP DIAGNOSIS: epigastric pain POST-OP DIAGNOSIS: other (antral gastritis) PROCEDURE: EGD with biopsy SURGEON: Amanda Page ESTIMATED BLOOD LOSS: 1 PATHOLOGY: other (antrum) COMPLICATIONS: None DISPOSITION: same day INDICATIONS: Epigastric pain PROCEDURE DESCRIPTION: Patient presented for EGD for evaluation of epigastric pain. Informed consent was obtained. The patient was taken to the procedure area and placed in left lateral decubitus position on the table. Timeout was performed. Anesthesia was induced. The endoscope was passed through a bite block to the second portion of the duodenum. The scope was slowly withdrawn and the mucosa and anatomy of the upper digestive tract was examined. The duodenum appeared normal. There was no ulceration or inflammatory change present no mass lesion present The pylorus was patent. The antrum was visibly inflamed with patchy erythema. There was no ulceration or erosion. There was no evidence of bleeding. No stigmata of recent or remote bleeding. Cold forceps biopsy was obtained from the gastritis for microscopic assessment and for Helicobacter pylori testing. The fundus and cardia appeared normal. The scope was retroflexed and the gastroesophageal junction appeared normal without hiatal hernia The GE junction was present at 42 cm from the incisors. The Z-line was normal. The remainder of the esophagus appeared normal without mass lesion inflammatory change or varices. Assessment and plan; Epigastric pain may be associated with the mild to moderate gastritis seen in the antrum. The patient is currently on omeprazole 40 mg daily prescribed by his primary care doctor. He noted to me this morning that his epigastric pain has not recurred since his appointment with me in the office. I will leave him on his current proton pump inhibitor and see him back in the office for follow- up symptom check and evaluation. If his symptoms have recurred or persisted at that time then I will switch him to pantoprazole 40 mg daily as this gastritis is present concurrent to omeprazole. If his symptoms do not recur then no ad ditional treatment is needed. Resume antiplatelet drugs in 48 hours. Written instructions provided.
== END 2025-02-10 09:51 | disposition home or self-care (01) ==
PROVIDERS: PCP Nurse Practitioner Family; Visit Provider Surgery
PROC: (CPT 43239; principal; 2025-02-10 08:15)
DX: R10.13 Epigastric pain (principal); Z12.11 Encounter for screening for malignant neoplasm of colon; K21.9 Gastro-esophageal reflux disease without esophagitis; K29.50 Unspecified chronic gastritis without bleeding; Z86.0100 Personal history of colon polyps, unspecified; K57.30 Diverticulosis of large intestine without perforation or abscess without bleeding; K31.9 Disease of stomach and duodenum, unspecified
CPT/HCPCS: 43239; 45378; 88305; J2003; J2704

== ENCOUNTER 2025-02-14 00:30 | Outpatient (CLI) | payer MEDICARE, BC, SELFPAY ==
--- NOTE | 2025-02-14 06:30 | DI.US_ITS ---
Exam(s) US ABDOMEN EXAM: US ABDOMEN CLINICAL HISTORY: epigastric pain,r10.11 TECHNIQUE: Ultrasound abdomen performed using standard protocol. COMPARISON: CT CT ABDOMEN PELVIS W from 04/28/2023 FINDINGS: LIVER: Normal size and echogenicity. Small simple cysts. No suspicious lesions are seen. GALLBLADDER: Somewhat contracted. No evidence of cholelithiasis. No evidence of wall thickening. No pericholecystic fluid identified. POWERS'S SIGN: Negative. BILIARY SYSTEM: No intrahepatic or extrahepatic biliary ductal dilation. KIDNEYS: Kidneys are symmetric in size. 10 millimeter stone mid right kidney. Multiple stones noted in the left kidney, largest at the lower pole measuring 11 millimeters. No evidence of hydronephrosis. Multiple cysts again noted. PANCREAS: Normal where visualized. SPLEEN: Not enlarged. ABDOMINAL AORTA AND IVC: Visualized portions normal caliber. ASCITES: None seen. IMPRESSION: Bilateral nephrolithiasis. No evidence of hydronephrosis. DATA REPOSITORY:
== END 2025-02-14 00:50 ==
LOC: DI 00:30
PROVIDERS: PCP Nurse Practitioner Family; Visit Provider Surgery
DX: R10.13 Epigastric pain (principal); N20.0 Calculus of kidney
CPT/HCPCS: 76700

== ENCOUNTER 2025-03-01 03:39 | Outpatient (CLI) | payer MEDICARE, BC, SELFPAY ==
[2025-03-01 08:55] LABS: Abs Immature Grans 0.01 10^3/uL (0.0-0.06); HCT 35.7 % (40.0-50.0); HGB 11.5 g/dL (13.5-17.5); Immature Grans % 0.2 %; MCH 30.0 pg (27.0-33.0); MCHC 32.2 % (32.0-36.0); MCV 93 fL (80-95); MPV 10.6 fL (8.0-11.0); Platelet Count 151 10^3/uL (130-400); RBC 3.83 10^6/uL (4.36-5.78); RDW 13.2 % (11.8-14.1); RDW-SD 45.3 fL; WBC 5.13 10^3/uL (4.4-10.8)
[2025-03-01 09:23] LABS: AST 32 U/L (15-37); Albumin 3.7 g/dL (3.4-5.0); Alkaline Phosphatase 147 U/L (46-116); Anion Gap 6.2 mmol/L (3-11); BUN 27 mg/dL (7-18); Bilirubin, Total 0.5 mg/dL (0.2-1.0); CO2 28.8 mmol/L (21.0-32.0); Calcium 9.2 mg/dL (8.5-10.1); Chloride 106 mmol/L (98-107); Estimated GFR 76.56 (mL/min/1.73m2); Ferritin 100 ng/mL (26-388); Glucose 89 mg/dL (74-106); Potassium 4.4 mmol/L (3.5-5.1); Sodium 141 mmol/L (136-145); Total Protein 7.1 g/dL (6.4-8.2)
[2025-03-01 09:38] LABS: ALT 30 U/L (16-63)
== END 2025-03-01 03:40 | disposition home or self-care (01) ==
PROVIDERS: PCP Nurse Practitioner Family; Visit Provider Internal Medicine
DX: D50.0 Iron deficiency anemia secondary to blood loss (chronic) (principal); C61 Malignant neoplasm of prostate
CPT/HCPCS: 36415; 80053; 84153; 84403; 82728; 85025

== ENCOUNTER 2025-03-29 12:53 | Outpatient (CLI) | payer MEDICARE, BC, SELFPAY ==
--- NOTE | 2025-03-29 12:00 | DI.RAD_ITS ---
Exam(s) XR CHEST 2V PA LATERAL EXAM: XR CHEST 2V PA LATERAL CLINICAL HISTORY: x 3 weeks, deep cough,r05.9 TECHNIQUE: 2D digital imaging was performed. Two views. COMPARISON: No exams were available for comparison FINDINGS: HEART: Normal size. Status post CABG. Aorta: Calcified and mildly tortuous. PULMONARY VASCULATURE: Normal. MEDIASTINUM: Unremarkable. LUNGS: Clear. PLEURAL SPACE: No pleural effusion or pneumothorax. BONE:Sternal wires. SOFT TISSUES: Unremarkable. IMPRESSION: No acute abnormality. DATA REPOSITORY: RADIATION DOSE DELIVERED:
== END 2025-03-29 13:13 ==
PROVIDERS: PCP Nurse Practitioner Family; Visit Provider Nurse Practitioner Family
DX: R05.9 Cough, unspecified (principal)
CPT/HCPCS: 71046

== ENCOUNTER 2025-03-29 16:00 | Outpatient (CLI) | payer MEDICARE, BC, SELFPAY ==
[2025-03-29 14:06] LABS: Abs Immature Grans 0.04 10^3/uL (0.0-0.06); HCT 35.7 % (40.0-50.0); HGB 11.4 g/dL (13.5-17.5); Immature Grans % 0.7 %; MCH 30.1 pg (27.0-33.0); MCHC 31.9 % (32.0-36.0); MCV 94 fL (80-95); MPV 10.6 fL (8.0-11.0); Platelet Count 201 10^3/uL (130-400); RBC 3.79 10^6/uL (4.36-5.78); RDW 13.5 % (11.8-14.1); RDW-SD 46.2 fL; WBC 5.69 10^3/uL (4.4-10.8)
[2025-03-29 14:46] LABS: ALT 24 U/L (16-63); AST 22 U/L (15-37); Albumin 3.5 g/dL (3.4-5.0); Alkaline Phosphatase 155 U/L (46-116); Anion Gap 7.9 mmol/L (3-11); BUN 30 mg/dL (7-18); Bilirubin, Total 0.4 mg/dL (0.2-1.0); CO2 28.1 mmol/L (21.0-32.0); Calcium 9.3 mg/dL (8.5-10.1); Chloride 107 mmol/L (98-107); Estimated GFR 61.52 (mL/min/1.73m2); Glucose 132 mg/dL (74-106); NT-proBNP 309 pg/mL (<300); Potassium 4.1 mmol/L (3.5-5.1); Sodium 143 mmol/L (136-145); Total Protein 7.1 g/dL (6.4-8.2)
== END 2025-03-29 16:01 | disposition home or self-care (01) ==
LOC: LBO 16:00
PROVIDERS: PCP Nurse Practitioner Family; Visit Provider Nurse Practitioner Family
DX: R06.00 Dyspnea, unspecified (principal); R05.9 Cough, unspecified
CPT/HCPCS: 36415; 80053; 71046; 83880; 85025

== ENCOUNTER → 2025-07-27 09:27 | Outpatient (BNVA) | payer MEDICARE, BC, SELFPAY | PROVIDERS: PCP Nurse Practitioner Family; Referring Provider Nurse Practitioner Family; Visit Provider Surgery | DX: R10.13 Epigastric pain (principal); R07.9 Chest pain, unspecified | CPT/HCPCS: 99214 ==